=== PATIENT | female | born 1965 | race Caucasian/White ===

== ENCOUNTER → 2016-08-30 | Outpatient (CLI) | payer OTHER ==
[~2016-08-30] MED LIST: ACET-1175 PO; AGMUNK; ATOR-54 PO; AZIT500I9 IV; BCPILLS PO; CEFE2INJ2 IV; DICY10CA55 PO; DILT1TAB62 PO; DOCU-94 PO; DXM/4 PO; FAMO20TA9 IV; FAMO40TA6 PO; LORA-741 PO; LRTUNK; ONDA8TAB6 PO; OXYC1TAB3 PO; PNT250 PO; PRED10TA PO; PROC1TAB5 IV; PROC1TAB5 PO; SENN-65 PO; THM100 IV; VANC5CAP PO; VTMD1000 PO
[2016-08-30 17:29] LABS: BASO % 0.5 %; BASO ABS # 0.03 K/uL (0-0.2); COMPLETE YES; EOS % 2.1 %; HEMATOCRIT 42.8 % (37-47); IG% 0.2 %; LYMPH % 30.7 %; LYMPH ABS # 1.91 K/uL (1.2-3.4); MEAN CELL VOLUME 94.9 fL (80-100); MEAN CORPUSCULAR HEMOGLOBIN 30.6 pg (25-34); MEAN CORPUSCULAR HGB CONC 32.2 g/dl (32-36); MEAN PLATELET VOLUME 11.5 fL (7.4-10.4); MONO % 7.4 %; NEUT % 59.1 %; PLATELET COUNT 223 K/uL (130-400); RED BLOOD COUNT 4.51 M/uL (4.2-5.4); WHITE BLOOD COUNT 6.22 K/uL (4.8-10.8)
[2016-08-30 17:45] LABS: ALT/SGPT 24 U/L (12-78); AST/SGOT 14 U/L (15-37); BLOOD UREA NITROGEN 10 mg/dl (7-18); BUN/CREATININE RATIO 11.5 (10-20); CALCIUM 8.8 mg/dl (8.5-10.1); CARBON DIOXIDE 27 mmol/L (21-32); CHLORIDE 109 mmol/L (98-107); CREATININE 0.84 mg/dl (0.60-1.20); GLUCOSE 104 mg/dl (70-99); POTASSIUM 4.4 mmol/L (3.5-5.1); SODIUM 142 mmol/L (136-145)
[2016-08-30 17:48] LABS: ALKALINE PHOSPHATASE 36 U/L (45-117)
== END | disposition home or self-care (01) ==
LOC: C.LABBFT 12:07
PROVIDERS: ATTEND Nurse Practitioner
DX: R10.30 Lower abdominal pain, unspecified (principal)

== ENCOUNTER → 2016-08-31 | Outpatient (CLI) | payer OTHER ==
[2016-08-31 17:10] LABS: URINE APPEARANCE CLOUDY (CLEAR); URINE BILIRUBIN NEG (NEG); URINE COLOR DK YELLOW; URINE EPITHELIAL CELL AUTO 20-30 /lpf (0-5); URINE NITRITE NEG (NEG); URINE SPECIFIC GRAVITY 1.031 (1.000-1.030); UROBILINOGEN NEG (NEG); ZZUR CULT IF INDIC CLEAN CATCH NO
[2016-08-31 17:23] LABS: MANUAL MICROSCOPIC REQUIRED? NO; REVIEW REQ? NO
== END | disposition home or self-care (01) ==
LOC: C.LABBFT 13:15
PROVIDERS: ATTEND Nurse Practitioner
DX: R10.30 Lower abdominal pain, unspecified (principal)

== ENCOUNTER → 2016-09-03 | Outpatient (CLI) | payer OTHER ==
--- NOTE | 2016-09-03 14:32 | DIAGNOSTIC IMAGING REPORT ---
ULTRASOUND OF THE PELVIS CLINICAL HISTORY: Leiomyoma of the uterus. COMPARISON STUDY: Pelvic CT dated 06/15/2010. TECHNIQUE: Real-time, grayscale, and color flow sonography of the pelvis is performed both transabdominally and endovaginally. Images are reviewed in the transverse and longitudinal planes. FINDINGS: Uterus: The uterus is mildly enlarged and heterogeneous in echotexture, measuring 10.8 x 6.8 x 6.9 cm. An intramural fundal fibroid measures up to 3.2 cm. An additional shadowing intramural fibroid in the posterior lower uterine segment measures up to 2.3 cm. Small nabothian cysts are present in the cervix. Endometrium: The endometrium is normal in appearance, and the endometrial stripe is normal in thickness measuring up to 0.4 cm. Ovaries: The ovaries are normal in size and morphology. The right ovary measures 2.7 x 2.3 x 1.8 cm and the left ovary measures 3.0 x 2.1 x 1.9 cm. Small follicles are seen bilaterally. Normal Doppler waveforms are shown within both ovaries. Pelvis: There is no free fluid in the cul-de-sac. No concerning adnexal lesion is seen. IMPRESSION: 1. Mildly enlarged and heterogeneous fibroid uterus as detailed above. 2. The ovaries are normal in appearance. Electronically signed by: Kirk Reddy M.D. 09/03/2016 2:31 PM Dictated Date/Time: 09/03/2016 2:29 PM
== END | disposition home or self-care (01) ==
LOC: C.ULTR 13:24
PROVIDERS: ATTEND Nurse Practitioner
DX: D25.9 Leiomyoma of uterus, unspecified (principal); R10.30 Lower abdominal pain, unspecified

== ENCOUNTER → 2016-09-14 | Outpatient (CLI) | payer OTHER ==
[2016-09-14 16:23] LABS: URINE APPEARANCE CLEAR (CLEAR); URINE BILIRUBIN NEG (NEG); URINE COLOR YELLOW; URINE EPITHELIAL CELL AUTO 20-30 /lpf (0-5); URINE NITRITE NEG (NEG); URINE PH 5.5 (4.5-7.5); URINE SPECIFIC GRAVITY 1.023 (1.000-1.030); UROBILINOGEN NEG (NEG); ZZUR CULT IF INDIC CLEAN CATCH NO
[2016-09-14 16:24] LABS: MANUAL MICROSCOPIC REQUIRED? NO; REVIEW REQ? NO
== END | disposition home or self-care (01) ==
LOC: C.LABBFT 13:07
PROVIDERS: ATTEND Nurse Practitioner
DX: R10.30 Lower abdominal pain, unspecified (principal)

== ENCOUNTER → 2016-10-29 | Outpatient (CLI) | payer OTHER ==
[~2016-10-29] MED LIST changes: -ACET-1175 PO; -AZIT500I9 IV; -CEFE2INJ2 IV; -DILT1TAB62 PO; -DOCU-94 PO; -DXM/4 PO; -FAMO20TA9 IV; -FAMO40TA6 PO; -LORA-741 PO; -ONDA8TAB6 PO; -OXYC1TAB3 PO; -PROC1TAB5 IV; -PROC1TAB5 PO; -SENN-65 PO; -THM100 IV
[2016-10-29 12:45] LABS: BLOOD UREA NITROGEN 4 mg/dl (7-18); BUN/CREATININE RATIO 5.3 (10-20); CALCIUM 8.4 mg/dl (8.5-10.1); CARBON DIOXIDE 25 mmol/L (21-32); CHLORIDE 105 mmol/L (98-107); CREATININE 0.85 mg/dl (0.60-1.20); GLUCOSE 131 mg/dl (70-99); MAGNESIUM 1.8 mg/dl (1.8-2.4); POTASSIUM 3.3 mmol/L (3.5-5.1); SODIUM 139 mmol/L (136-145)
== END | disposition home or self-care (01) ==
LOC: C.LABBFT 08:30
PROVIDERS: ATTEND Nurse Practitioner Acute Care
DX: E87.6 Hypokalemia (principal)

== ENCOUNTER → 2016-10-31 | Outpatient (CLI) | payer OTHER ==
[2016-10-31 17:54] LABS: BLOOD UREA NITROGEN 8 mg/dl (7-18); BUN/CREATININE RATIO 9.5 (10-20); CALCIUM 8.9 mg/dl (8.5-10.1); CARBON DIOXIDE 26 mmol/L (21-32); CHLORIDE 106 mmol/L (98-107); CREATININE 0.81 mg/dl (0.60-1.20); GLUCOSE 101 mg/dl (70-99); POTASSIUM 3.7 mmol/L (3.5-5.1); SODIUM 137 mmol/L (136-145)
== END | disposition home or self-care (01) ==
LOC: C.LABBFT 11:07
PROVIDERS: ATTEND Physician Assistant Medical
DX: E87.6 Hypokalemia (principal)

== ENCOUNTER 2016-11-11 09:19 | Inpatient (IN) | payer OTHER ==
[~2016-11-11] VITALS: Ht 167.6 cm; Wt 82.4 kg
[~2016-11-11 09:19] MED LIST changes: -ATOR-54 PO; -DICY10CA55 PO; -PNT250 PO; -PRED10TA PO; -VANC5CAP PO; -VTMD1000 PO
[2016-11-11 09:23] VITALS: Ht 167.6 cm; Wt 82.4 kg
[2016-11-11] MEDS ORDERED: SODIUM CHLORIDE 0.9% 1000ML 1,000 ML IV STA (09:41)
[2016-11-11] MEDS ORDERED: ONDANSETRON INJ 2 MG/ML 2 ML VIAL IV STA (09:41)
[2016-11-11] MEDS ORDERED: HYDROmorphone INJ 1 MG/ML SYR IV STA (09:41)
--- NOTE | 2016-11-11 09:49 | EMERGENCY ROOM VISIT NOTE ---
History First contact with patient: 09:29 Chief Complaint: ABDOMINAL PAIN Stated Complaint: NAUSEA, DIARRHEA, STOMACH ISSUES X 2 WKS Nursing Triage Summary: Abdominal pain, nausea and vomiting. States was hospitalized three weeks ago for the same - states nothing was found. ([facility], [place], [place]) History of Present Illness The patient is a 51 year old female who presents to the Emergency Room with complaints of abdominal pain, nausea, vomiting and diarrhea. The patient developed GI symptoms approximately 7 weeks ago. She has had intermittent abdominal pain, nausea, vomiting and diarrhea. 3 weeks ago when they were on vacation in [place] she was hospitalized. She had a colonoscopy at that time which revealed terminal ileitis. The patient also had a lactic acidosis. The patient has followed up with gastroenterology, Dr. Rowe, and had a test done on Saturday. She is not sure of the name of the study. She states that last night and this morning she has had diffuse abdominal pain, nausea, vomiting and diarrhea. She rates her discomfort a 9/10. She states the symptoms are similar to her ongoing stomach issues. She denies any fevers. She denies any pain in her chest or trouble breathing. She denies any dysuria, urgency or frequency. She denies any melena, hematochezia or hematemesis. The patient's working diagnosis at this time is Crohn's disease. She was started on Pentasa, prednisone, Bentyl. Review of Systems A 10 system review of systems was completed with positives and pertinent negatives listed in the HPI. Past Medical/Surgical History Medical Problems: (1) Abdominal pain Surgical Problems: (1) History of appendectomy Social History Smoking Status: Never Smoker Marital Status: Housing Status: lives with family Current/Historical Medications Scheduled Atorvastatin (Lipitor), 20 MG PO HS Control Pills ( Control Pills), 1 TAB PO DAILY Dicyclomine Hcl (Bentyl), 10 MG PO BID Mesalamine Cont Rel (Pentasa), 1,000 MG PO QID Prednisone (Prednisone), 0 PO UD Allergies Coded Allergies: No Known Allergies (Unverified , 11/11/16) Physical Exam Vital Signs Date Time Temp Pulse Resp B/P (MAP) Pulse Ox O2 Delivery O2 Flow Rate FiO2 11/11/16 11:27 98 Room Air 11/11/16 11:21 98 20 159/98 98 Room Air 11/11/16 10:32 75 16 147/85 98 Room Air 11/11/16 09:47 95 Room Air 11/11/16 09:35 89 11/11/16 09:23 36.5 100 22 146/85 100 Room Air Physical Exam VITALS: Vitals are noted on the nurse's note and reviewed by myself. Vital signs stable. The patient is afebrile. GENERAL: This is a 51-year-old female, in no acute distress, nondiaphoretic, well-developed well-nourished. SKIN: The skin was without rashes, erythema, edema, or bruising. There is no tenting of the skin. Capillary reflex less than 2 seconds. HEAD: Normocephalic atraumatic. EARS: The external ears are normal in appearance. EYES: Pupils equal round and reactive to light and accommodation. Conjunctivae without injection, sclerae without icterus. Extraocular movements intact. NOSE: Patent, turbinates without inflammation or discharge. MOUTH: Mucous membranes moist. Tonsils are not enlarged. Pharynx without erythema or exudate. Uvula midline. Airway patent. Tongue does not deviate. NECK: Supple without nuchal rigidity. No lymphadenopathy. No thyromegaly. Cervical spine is nontender. No JVD. HEART: Regular rate and rhythm without murmurs gallops or rubs. LUNGS: Clear to auscultation bilaterally without wheezes, rales or rhonchi. No retractions or accessory muscle use. ABDOMEN: Positive bowel sounds x 4. Soft, mildly distended, marked left lower quadrant tenderness, moderate diffuse tenderness, without masses or organomegaly. MUSCULOSKELETAL: No muscle atrophy, erythema, or edema noted. Full range of motion in all extremities. Strength 5/5 throughout. NEURO: Patient was alert and oriented to person place and time. No focal neurological deficits. Medical Decision & Procedures ER Provider Diagnostic Interpretation: ABDOMEN 2VIEW W/PA CHEST RTN CLINICAL HISTORY: abdominal pain pain COMPARISON STUDY: No previous studies for comparison. FINDINGS: Small bowel pattern suggests small bowel ileus versus partial small bowel obstructive change. Lungs are clear. Diaphragms smooth. IMPRESSION: Ileus versus partial small bowel obstructive change. Negative chest. Laboratory Results 11/11/16 09:35 Red Blood Count 4.99, Mean Corpuscular Volume 88.6, Mean Corpuscular Hemoglobin 31.9, Mean Corpuscular Hemoglobin Concent 36.0, Mean Platelet Volume 11.2, Neutrophils (%) (Auto) 86.3, Lymphocytes (%) (Auto) 9.2, Monocytes (%) (Auto) 4.0, Eosinophils (%) (Auto) 0.0, Basophils (%) (Auto) 0.2, Neutrophils # (Auto) 10.26, Lymphocytes # (Auto) 1.09, Monocytes # (Auto) 0.47, Eosinophils # (Auto) 0.00, Basophils # (Auto) 0.02 11/11/16 09:35 Test 11/11/16 09:35 White Blood Count 11.87 K/uL (4.8-10.8) Red Blood Count 4.99 M/uL (4.2-5.4) Hemoglobin 15.9 g/dL (12.0-16.0) Hematocrit 44.2 % (37-47) Mean Corpuscular Volume 88.6 fL (80-100) Mean Corpuscular Hemoglobin 31.9 pg (25-34) Mean Corpuscular Hemoglobin Concent 36.0 g/dl (32-36) Platelet Count 295 K/uL (130-400) Mean Platelet Volume 11.2 fL (7.4-10.4) Neutrophils (%) (Auto) 86.3 % Lymphocytes (%) (Auto) 9.2 % Monocytes (%) (Auto) 4.0 % Eosinophils (%) (Auto) 0.0 % Basophils (%) (Auto) 0.2 % Neutrophils # (Auto) 10.26 K/uL (1.4-6.5) Lymphocytes # (Auto) 1.09 K/uL (1.2-3.4) Monocytes # (Auto) 0.47 K/uL (0.11-0.59) Eosinophils # (Auto) 0.00 K/uL (0-0.5) Basophils # (Auto) 0.02 K/uL (0-0.2) RDW Standard Deviation 42.4 fL (36.4-46.3) RDW Coefficient of Variation 13.1 % (11.5-14.5) Immature Granulocyte % (Auto) 0.3 % Immature Granulocyte # (Auto) 0.03 K/uL (0.00-0.02) Erythrocyte Sedimentation Rate 14 mm/hr (0-21) Prothrombin Time 12.4 SECONDS (9.0-12.0) Prothromb Time International Ratio 1.2 (0.9-1.1) Activated Partial Thromboplast Time 26.1 SECONDS (21.0-31.0) Partial Thromboplastin Ratio 1.0 Anion Gap 14.0 mmol/L (3-11) Estimated GFR () 78.0 Estimated GFR (Non- 67.3 BUN/Creatinine Ratio 7.1 (10-20) Calcium Level 9.7 mg/dl (8.5-10.1) Magnesium Level 1.8 mg/dl (1.8-2.4) Total Bilirubin 0.9 mg/dl (0.2-1) Aspartate Amino Transf (AST/SGOT) 19 U/L (15-37) Alanine Aminotransferase (ALT/SGPT) 34 U/L (12-78) Alkaline Phosphatase 37 U/L (45-117) Total Creatine Kinase 70 U/L (26-192) Total Protein 7.9 gm/dl (6.4-8.2) Albumin 3.7 gm/dl (3.4-5.0) Globulin 4.2 gm/dl (2.5-4.0) Albumin/Globulin Ratio 0.9 (0.9-2) Lyme Disease IgG Antibody NEG (NEG) Medications Administered Medications (Trade) Dose Ordered Sig/Cheryl Route Start Time Stop Time Status Last Admin Dose Admin Sodium Chloride 1,000 ml @ 999 mls/hr Q1H1M STAT IV 11/11/16 09:41 11/11/16 10:41 DC 11/11/16 09:52 999 MLS/HR Ondansetron HCl (Zofran Inj) 4 mg NOW STAT IV 11/11/16 09:41 11/11/16 09:43 DC 11/11/16 09:52 4 MG Hydromorphone HCl (Dilaudid Inj) 1 mg NOW STAT IV 11/11/16 09:41 11/11/16 09:43 DC 11/11/16 09:53 1 MG Methylprednisolone Sodium Succinate 80 mg/Syringe 1.28 ml @ 1.5 mls/min ONE STAT IV 11/11/16 11:07 11/11/16 11:09 DC 11/11/16 11:28 1.5 MLS/MIN Ciprofloxacin/ Dextrose (Cipro / D5W) 400 mg NOW STAT IV 11/11/16 11:07 11/11/16 11:09 DC 11/11/16 11:29 400 MG Metronidazole (Flagyl / Nss) 500 mg NOW STAT IV 11/11/16 11:07 11/11/16 11:09 DC 11/11/16 11:29 500 MG Procedure The patient was monitored on a athletic monitor. They maintained a normal sinus rhythm without ectopy. ED Course The patient was seen and examined. Previous visits were reviewed. The patient does not have a fever. She does have a mild leukocytosis of 11.87. Her sedimentation rate is not elevated. She does not have any significant electrolyte abnormalities. Lactic acid is 1.0. INR is 1.2. Plain film of the abdomen and chest suggest small bowel obstruction vs ileus The patient was hydrated with normal saline She was initially given 1 mg IV Dilaudid and 4 mg IV Zofran with improvement in her pain She was given 80 mg IV Solu-Medrol She was given 400 mg IV Cipro She was given 500 mg IV Flagyl An NG tube was placed with intermittent suction and the patient tolerated well. Case management was able to review the notes in WebMD's system. The enterography has not been resulted at this time. The case was discussed with Dr. Mackenzie Cook who evaluated the patient in the emergency department. He recommends NG tube, Cipro, Flagyl, stool for O&P and C. difficile, Solu-Medrol 3 times a day. This was relayed to the hospitalist service as well. I discussed the case with Dr. Seals and she will evaluate the patient. The case was discussed with Dr. Pierre who agrees with the assessment and treatment plan. Medical Decision DIFFERENTIAL DIAGNOSIS: Hepatitis, cholecystitis, cholangitis, biliary colic, pancreatitis, pneumonia, subdiaphragmatic abscess, appendicitis, inguinal hernia , nephrolithiasis, inflammatory bowel disease, mesenteric adenitis, peptic ulcer disease, GERD, gastritis, pancreatitis, myocardial infarction, pericarditis, ruptured aortic aneurysm, appendicitis, gastroenteritis, bowel obstruction, splenic infarct, diverticulitis, mesenteric ischemia, metabolic, peritonitis, among others. Consults Consulting Physician: Dr. Mackenzie Cook Admission NG tube Stool culture/O&P/c. diff Solumedrol TID Cipro, Flagyl IV Impression Primary Impression: Small bowel obstruction Additional Impression: Lower abdominal pain Departure Information Dispostion Admitted as an inpatient Referrals Olegario Diehl M.D. (PCP) Patient Instructions My [facility] Problem Qualifiers
[2016-11-11] MEDS ORDERED: PRED10TA PO (09:59)
[2016-11-11] MEDS ORDERED: ATOR-54 PO (09:59)
[2016-11-11] MEDS ORDERED: PNT250 PO (09:59)
[2016-11-11] MEDS ORDERED: DICY10CA55 PO (09:59)
[2016-11-11 10:01] LABS: BASO % 0.2 %; BASO ABS # 0.02 K/uL (0-0.2); COMPLETE YES; HEMATOCRIT 44.2 % (37-47); IG% 0.3 %; LYMPH % 9.2 %; LYMPH ABS # 1.09 K/uL (1.2-3.4); MEAN CELL VOLUME 88.6 fL (80-100); MEAN CORPUSCULAR HEMOGLOBIN 31.9 pg (25-34); MEAN PLATELET VOLUME 11.2 fL (7.4-10.4); NEUT % 86.3 %; PLATELET COUNT 295 K/uL (130-400); RED BLOOD COUNT 4.99 M/uL (4.2-5.4); WHITE BLOOD COUNT 11.87 K/uL (4.8-10.8)
[2016-11-11 10:10] LABS: INR 1.2 (0.9-1.1); PROTHROMBIN TIME (PATIENT) 12.4 SECONDS (9.0-12.0)
[2016-11-11 10:20] LABS: ALT/SGPT 34 U/L (12-78); BLOOD UREA NITROGEN 7 mg/dl (7-18); BUN/CREATININE RATIO 7.1 (10-20); CALCIUM 9.7 mg/dl (8.5-10.1); CARBON DIOXIDE 21 mmol/L (21-32); CHLORIDE 103 mmol/L (98-107); CREATININE 0.98 mg/dl (0.60-1.20); GLUCOSE 116 mg/dl (70-99); MAGNESIUM 1.8 mg/dl (1.8-2.4); POTASSIUM 3.6 mmol/L (3.5-5.1); SODIUM 138 mmol/L (136-145)
[2016-11-11 10:23] LABS: ALB/GLOB RATIO 0.9 (0.9-2); ALKALINE PHOSPHATASE 37 U/L (45-117); AST/SGOT 19 U/L (15-37)
--- NOTE | 2016-11-11 10:36 | DIAGNOSTIC IMAGING REPORT ---
ABDOMEN 2VIEW W/PA CHEST RTN CLINICAL HISTORY: abdominal pain pain COMPARISON STUDY: No previous studies for comparison. FINDINGS: Small bowel pattern suggests small bowel ileus versus partial small bowel obstructive change. Lungs are clear. Diaphragms smooth. IMPRESSION: Ileus versus partial small bowel obstructive change. Negative chest. The above report was generated using voice recognition software. It may contain grammatical, syntax or spelling errors. Electronically signed by: Navin Quinteros M.D. 11/11/2016 10:35 AM Dictated Date/Time: 11/11/2016 10:34 AM
[2016-11-11] MEDS ORDERED: METHYLPREDNISOLONE IV 80 MG in SYRINGE 0 ML IV STA (11:07)
[2016-11-11] MEDS ORDERED: METRONIDAZOLE 500MG / 100ML NSS IV STA (11:07)
[2016-11-11] MEDS ORDERED: CIPROFLOXACIN 400MG / 200ML D5W IV STA (11:07)
[2016-11-11 11:27] VITALS: O2SAT 98
[2016-11-11] MEDS ORDERED: ACETAMINOPHEN 325 MG TAB PO PRN (11:45)
[2016-11-11] MEDS ORDERED: ONDANSETRON INJ 2 MG/ML 2 ML VIAL IV PRN (11:45)
[2016-11-11] MEDS ORDERED: MAGNESIUM HYDROXIDE SUSP 30 ML UDC PO PRN (11:45)
--- NOTE | 2016-11-11 11:56 | History and Physical ---
History & Physical Date & Time of Service: Nov 11, 2016 at 11:46 Chief Complaint: Nausea, Diarrhea, Stomach Issues X 2 Wks Primary Care Physician: Olegario Diehl M.D. History of Present Illness Source: patient, hospital records 51 y/o F c/o abd pain, n/v/d. Pt states that all of this started in late August. She had been having abd pain x2 days and was seen by her PCP PA. She had a pelvic US at that time that was WNL. She was scheduled for a c-scope in May 2017. A few days after the US, her abd pain resolved until she was on vacation in [place] around 10/25. She was admitted there after becoming "deathly ill" with abd pain, n/v/d with inability to tolerate PO. She had a c-scope which showed terminal ileitis and the working dx at that time was Crohn's. She also had lactic acidosis at that time. She was d/c'd to home for further f/u. She was feeling a bit better at that time, but still with mild sx. She states that there was no bowel obstruction noted at that time. She established care with Dr. Rowe last week. She states she had a CT AP with contrast at the [facility] office, but had not been called with results yet. Pt sx started to worsen again, so she came to the ED for further care this morning. Pt states she was having bloating as well as the abd pain, n/v/d. Pt had an NGT placed the ED and feels a bit improved, but still having sx. Bloating and nausea are better. Pt notes that a few weeks ago she noted a perfectly round bite on the back of her calf that was itchy. It has since resolved. She has not been tested for Lyme. Pt denies fever, SOB, chest pain, LE pain or swelling. Past Medical/Surgical History Hyperlipidemia s/p appendectomy Family History Denies GI issues Social History Smoking Status: Never Smoker Alcohol Use: occasionally Drug Use: none Marital Status: Immunizations History of Influenza Vaccine: Yes Influenza Vaccine Date: Feb 15, 2010 History of Tetanus Vaccine?: No History of Pneumococcal: No History of Hepatitis B Vaccine: No Multi-Drug Resistant Organisms History of MDRO: No Allergies Coded Allergies: No Known Allergies (Unverified , 11/11/16) Home Medications Scheduled Atorvastatin (Lipitor), 20 MG PO HS Control Pills ( Control Pills), 1 TAB PO DAILY Dicyclomine Hcl (Bentyl), 10 MG PO BID Mesalamine Cont Rel (Pentasa), 1,000 MG PO QID Prednisone (Prednisone), 0 PO UD Review of Systems Reviewed as above and otherwise neg Physical Exam Vital Signs Date Time Temp Pulse Resp B/P (MAP) Pulse Ox O2 Delivery O2 Flow Rate FiO2 11/11/16 11:27 98 Room Air 11/11/16 11:21 98 20 159/98 98 Room Air 11/11/16 10:32 75 16 147/85 98 Room Air 11/11/16 09:47 95 Room Air 11/11/16 09:35 89 11/11/16 09:23 36.5 100 22 146/85 100 Room Air General Appearance: WD/WN, no apparent distress Head: normocephalic, atraumatic Eyes: normal inspection, EOMI ENT: hearing grossly normal Neck: supple Respiratory/Chest: normal breath sounds, no respiratory distress Cardiovascular: regular rate, rhythm, no edema Abdomen/GI: soft, + tenderness (mild), + distended Extremities/Musculoskelatal: no calf tenderness, no pedal edema Neurologic/Psych: alert, normal mood/affect, oriented x 3 Skin: normal color, warm/dry Diagnostics Laboratory Results Results Past 24 Hours Test 11/11/16 09:35 Range/Units White Blood Count 11.87 4.8-10.8 K/uL Red Blood Count 4.99 4.2-5.4 M/uL Hemoglobin 15.9 12.0-16.0 g/dL Hematocrit 44.2 37-47 % Mean Corpuscular Volume 88.6 80-100 fL Mean Corpuscular Hemoglobin 31.9 25-34 pg Mean Corpuscular Hemoglobin Concent 36.0 32-36 g/dl Platelet Count 295 130-400 K/uL Mean Platelet Volume 11.2 7.4-10.4 fL Neutrophils (%) (Auto) 86.3 % Lymphocytes (%) (Auto) 9.2 % Monocytes (%) (Auto) 4.0 % Eosinophils (%) (Auto) 0.0 % Basophils (%) (Auto) 0.2 % Neutrophils # (Auto) 10.26 1.4-6.5 K/uL Lymphocytes # (Auto) 1.09 1.2-3.4 K/uL Monocytes # (Auto) 0.47 0.11-0.59 K/uL Eosinophils # (Auto) 0.00 0-0.5 K/uL Basophils # (Auto) 0.02 0-0.2 K/uL RDW Standard Deviation 42.4 36.4-46.3 fL RDW Coefficient of Variation 13.1 11.5-14.5 % Immature Granulocyte % (Auto) 0.3 % Immature Granulocyte # (Auto) 0.03 0.00-0.02 K/uL Erythrocyte Sedimentation Rate 14 0-21 mm/hr Prothrombin Time 12.4 9.0-12.0 SECONDS Prothromb Time International Ratio 1.2 0.9-1.1 Activated Partial Thromboplast Time 26.1 21.0-31.0 SECONDS Partial Thromboplastin Ratio 1.0 Sodium Level 138 136-145 mmol/L Potassium Level 3.6 3.5-5.1 mmol/L Chloride Level 103 98-107 mmol/L Carbon Dioxide Level 21 21-32 mmol/L Anion Gap 14.0 3-11 mmol/L Blood Urea Nitrogen 7 7-18 mg/dl Creatinine 0.98 0.60-1.20 mg/dl Estimated GFR () 78.0 Estimated GFR (Non- 67.3 BUN/Creatinine Ratio 7.1 10-20 Random Glucose 116 70-99 mg/dl Calcium Level 9.7 8.5-10.1 mg/dl Magnesium Level 1.8 1.8-2.4 mg/dl Total Bilirubin 0.9 0.2-1 mg/dl Aspartate Amino Transf (AST/SGOT) 19 15-37 U/L Alanine Aminotransferase (ALT/SGPT) 34 12-78 U/L Alkaline Phosphatase 37 45-117 U/L Total Creatine Kinase 70 26-192 U/L Total Protein 7.9 6.4-8.2 gm/dl Albumin 3.7 3.4-5.0 gm/dl Globulin 4.2 2.5-4.0 gm/dl Albumin/Globulin Ratio 0.9 0.9-2 Microbiology Results 11/11/16 Blood Culture, Received Pending 11/11/16 Blood Culture, Received Pending Diagnostic Radiology C/Abd XR with ileus vs partial SBO Impression Assessment and Plan 51 y/o F who was admitted on 11/11 for abd pain, n/v/d abd pain, n/v/d: ileus vs partial SBO noted on XR Seen by Dr. Cook () in the ED and recs for NGT, steroids, cipro/flagyl Recent CT AP done at [facility] and results not available to me, will await further recs from as they have access to [facility] testing CBC, PRP WNL Blood cx pending, recheck lactic acid levels given recent lactic acidosis Will check Lyme given recent rash Had been pn pentasa, prednisone, and bentyl as outpt Hyperlipidemia: holding home meds OCP use: holding at this time Other: Ambulation for DVT proph NPO Level of Care Med/Surg Advanced Directives Existing Living Will: Yes Existing Power of Yard Coordinator: No VTE Prophylaxis VTE Risk Assessment Done? Y/N: Yes Risk Level: Low
--- NOTE | 2016-11-11 12:17 | GASTROINTESTINAL CONSULTATION ---
DATE OF CONSULTATION: 11/11/2016 REQUESTING PROVIDER: MILLER Danielle. CHIEF COMPLAINT: Abdominal pain, nausea and vomiting. HISTORY OF PRESENT ILLNESS: The patient is a 51-year-old female who presented to the Emergency Room this morning with symptoms of abdominal discomfort, recurrent nausea and several episodes of emesis. The patient notes that she was in her usual state of health until approximately 2 months ago, when she had a history of abdominal discomfort. This passed on its own without any interventions. She was then traveling in [place] and developed recurrent symptoms. During this time, she had nausea, vomiting and diarrhea and presented to a hospital in [place]. During a short hospital stay, she underwent a colonoscopy, which showed evidence of ileal inflammation, thought to be related to Crohn's disease. She was referred to Dr. Eda Rowe as an outpatient, who saw her last week. The patient has been on Pentasa as an outpatient and recently finished a course of ciprofloxacin. She denies having any fevers, chills, or sweats. Her main symptoms today include nausea, vomiting and recurrent diarrhea 3-5 times per day associated with some urgency. The patient denies having any hematochezia. PAST MEDICAL HISTORY: Hypercholesterolemia. PAST SURGICAL HISTORY: Appendectomy. SOCIAL HISTORY: Nonsmoker. Denies alcohol use. FAMILY HISTORY: No history of inflammatory bowel disease. ALLERGIES: POLLEN. GASTROINTESTINAL HISTORY: One colonoscopy in October 2016. REVIEW OF SYSTEMS: GENERAL: No fevers and no chills. CARDIAC: No chest pain. PULMONARY: No shortness of breath or cough. GASTROINTESTINAL: Please see history of present illness. GENITOURINARY: No dysuria. MUSCULOSKELETAL: No joint pains or muscle pains. SKIN: The patient is with a history of rash before she wonders if she may have a Lyme disease. HEENT: No difficulty swallowing. PSYCHIATRIC: No depression today. No suicidal ideation. HEMATOLOGIC: No bleeding tendency. PHYSICAL EXAMINATION: VITAL SIGNS: Temperature 36.5, pulse 100, respiratory rate 16, and blood pressure is 147/85. HEENT: No scleral icterus noted. No JVD noted. LUNGS: Clear to auscultation. CARDIAC: Regular rate and rhythm without murmur. ABDOMEN: Soft. Mild tenderness in the right lower quadrant and left lower quadrant. EXTREMITIES: No edema today. No rashes noted. NEUROLOGIC: Cranial nerves grossly intact. Motor grossly intact. LABORATORIES: White blood cell count is 11.87, hemoglobin is 15.9, hematocrit is 44.2, and platelet count is 295. PT 12.4 and INR 1.2. Sodium is 136, potassium is 3.6, BUN is 7, creatinine is 0.98, and calcium is 9.7. AST 19, ALT 34, and alkaline phosphatase 37. Albumin is 3.7. IMAGING STUDIES: Chest x-ray, ileal partial small-bowel obstruction noted. Prior pathology results from 11/01/2016 notable for inflammatory changes in the terminal ileum. IMPRESSION: This is a 51-year-old female presenting with signs and symptoms suggestive of ileal Crohn's disease. Given the patient's small bowel obstruction, I would suggest admission for more intensive medical therapy. RECOMMENDATIONS: 1. IV hydration. 2. Please begin the patient on Solu-Medrol 3 times daily. 3. Ciprofloxacin and Flagyl for antibiotic coverage. 4. Stool studies to be ordered to include C. diff, stool culture, ova and parasites. Please call with any questions or concerns. We will continue to follow the patient with you.
[2016-11-11 13:10] VITALS: BP 148/92; PULSE 86; TEMP 36.7; O2SAT 98
[2016-11-11] MEDS: D5W AND 1/2NSS + 20MEQ KCL 1,000 ML IV SCH ×2 (13:55→21:41)
[2016-11-11] MEDS ORDERED: NURSING VERBAL MED ORDER ONE (14:30)
[2016-11-11] MEDS ORDERED: MoRPHine SULFATE 2 MG/ML CARP IV PRN (14:30)
[2016-11-11] MEDS ORDERED: HYDROmorphone INJ 0.5 MG/0.5 ML SYR IV STA (14:32)
[2016-11-11 14:58] VITALS: BP 131/79; PULSE 77; TEMP 36.7; O2SAT 97
[2016-11-11 16:00] VITALS: O2SAT 97
[2016-11-11 18:08] LABS: URINE APPEARANCE CLEAR (CLEAR); URINE COLOR ORANGE; URINE EPITHELIAL CELL AUTO 20-30 /lpf (0-5); URINE NITRITE POS (NEG); URINE PH 5.5 (4.5-7.5); URINE SPECIFIC GRAVITY 1.034 (1.000-1.030); UROBILINOGEN NEG (NEG); ZZUR CULT IF INDIC CLEAN CATCH NO
[2016-11-11 18:10] LABS: MANUAL MICROSCOPIC REQUIRED? NO; REVIEW REQ? NO
[2016-11-11 18:12] LABS: URINE BILIRUBIN NEG (NEG)
[2016-11-11] MEDS: METRONIDAZOLE / NSS 500 MG in PREMIXED NSS 100 ML IV SCH (19:37)
[2016-11-11] MEDS: METHYLPREDNISOLONE IV 40 MG in SYRINGE 0 ML IV SCH (19:37)
[2016-11-11] MEDS: CIPROFLOXACIN / D5W 400 MG in PREMIXED IN D5W 200 ML IV SCH (21:41)
[2016-11-11 23:13] VITALS: BP 130/78; PULSE 77; TEMP 36.8; O2SAT 93
[2016-11-12] MEDS: METRONIDAZOLE / NSS 500 MG in PREMIXED NSS 100 ML IV SCH ×3 (04:03→20:55)
[2016-11-12] MEDS: D5W AND 1/2NSS + 20MEQ KCL 1,000 ML IV SCH ×3 (04:04→21:00)
[2016-11-12] MEDS: METHYLPREDNISOLONE IV 40 MG in SYRINGE 0 ML IV SCH ×3 (04:04→20:01)
[2016-11-12 07:40] VITALS: BP 128/76; PULSE 74; TEMP 36.9; O2SAT 97
[2016-11-12 09:30] LABS: BASO % 0.1 %; BASO ABS # 0.01 K/uL (0-0.2); COMPLETE YES; HEMATOCRIT 38.4 % (37-47); IG% 0.1 %; LYMPH % 7.9 %; LYMPH ABS # 0.64 K/uL (1.2-3.4); MEAN CELL VOLUME 91.2 fL (80-100); MEAN CORPUSCULAR HEMOGLOBIN 31.6 pg (25-34); MEAN CORPUSCULAR HGB CONC 34.6 g/dl (32-36); MEAN PLATELET VOLUME 10.9 fL (7.4-10.4); MONO % 2.1 %; NEUT % 89.8 %; PLATELET COUNT 207 K/uL (130-400); RED BLOOD COUNT 4.21 M/uL (4.2-5.4); WHITE BLOOD COUNT 8.11 K/uL (4.8-10.8)
[2016-11-12 09:37] LABS: INR 1.2 (0.9-1.1); PROTHROMBIN TIME (PATIENT) 12.5 SECONDS (9.0-12.0)
[2016-11-12] MEDS: CIPROFLOXACIN / D5W 400 MG in PREMIXED IN D5W 200 ML IV SCH ×2 (09:41→22:07)
[2016-11-12 09:49] LABS: ALT/SGPT 30 U/L (12-78); BLOOD UREA NITROGEN 7 mg/dl (7-18); BUN/CREATININE RATIO 9.1 (10-20); CALCIUM 8.3 mg/dl (8.5-10.1); CARBON DIOXIDE 26 mmol/L (21-32); CHLORIDE 106 mmol/L (98-107); CREATININE 0.74 mg/dl (0.60-1.20); GLUCOSE 153 mg/dl (70-99); POTASSIUM 3.9 mmol/L (3.5-5.1); SODIUM 139 mmol/L (136-145)
[2016-11-12 09:52] LABS: ALB/GLOB RATIO 0.8 (0.9-2); ALKALINE PHOSPHATASE 29 U/L (45-117); AST/SGOT 18 U/L (15-37)
--- NOTE | 2016-11-12 13:40 | Gastroenterology Progress Note ---
Progress Note Date of Service: Nov 12, 2016 Subjective Pt evaluation today including: conversation w/ patient, physical exam, chart review, lab review 51yo being followed with hx of crohn's disease on [place] admitted with sx's of SBO, NGT remains in place, currently on cipro/flagyl and IV steroids. Pt feeling much better today, abdominal pain is less still has not passed gas or had BM MR enterography complete 11/11/16 confirms crohn's at [facility] with phlegmonous collection adjacent to ileocecal valve with mild to moderate small bowel obstruction labs stable, blood cultures pending Review of Systems Constitutional: No fever, No chills Eyes: No problem reported ENT: No hearing loss Respiratory: No problem reported Cardiac: No problem reported Abdomen: + see HPI Musculoskeletal: No problem reported Female : No problem reported Neuro: No problem reported Psych: No problem reported Heme: No abnormal bleeding/bruising Endo: No problem reported Skin: No problem reported Medications Current Inpatient Medications Medications (Trade) Dose Ordered Sig/Cheryl Route Start Time Stop Time Status Last Admin Dose Admin Acetaminophen (Tylenol Tab) 650 mg Q4H PRN PO 11/11/16 11:45 12/11/16 11:44 Magnesium Hydroxide (Milk Of Magnesia Susp) 30 ml Q6H PRN PO 11/11/16 11:45 12/11/16 11:44 Ondansetron HCl (Zofran Inj) 4 mg Q6H PRN IV 11/11/16 11:45 12/11/16 11:44 Ciprofloxacin/ Dextrose 400 mg/ Prmx 200 ml @ 100 mls/hr Q12@1000,2200 IV 11/11/16 22:00 11/20/16 23:59 11/12/16 09:41 100 MLS/HR Metronidazole 500 mg/Prmx 100 ml @ 100 mls/hr Q8@0400,1200,2000 IV 11/11/16 20:00 11/21/16 04:59 11/12/16 11:55 100 MLS/HR Potassium Chloride/Dextrose/ Sod Cl 1,000 ml @ 125 mls/hr Q8H IV 11/11/16 13:30 12/11/16 13:29 11/12/16 13:29 125 MLS/HR Methylprednisolone Sodium Succinate 40 mg/Syringe 0.64 ml @ 1.5 mls/min Q8@0400,1200,2000 IV 11/11/16 20:00 12/11/16 19:59 11/12/16 11:56 1.5 MLS/MIN Morphine Sulfate (MoRPHine SULFATE INJ) 1 mg Q3H PRN IV 11/11/16 14:30 11/25/16 14:29 Objective Vital Signs Date Time Temp Pulse Resp B/P (MAP) Pulse Ox O2 Delivery O2 Flow Rate FiO2 11/12/16 08:00 Room Air 11/12/16 07:40 36.9 74 18 128/76 (93) 97 Room Air 11/12/16 00:00 Room Air 11/11/16 23:13 36.8 77 18 130/78 (95) 93 Room Air 11/11/16 16:00 97 Room Air 11/11/16 14:58 36.7 77 16 131/79 (96) 97 Physical Exam General Appearance: WD/WN (NGT in place), no apparent distress Eyes: normal inspection ENT: hearing grossly normal Respiratory/Chest: lungs clear Cardiovascular: regular rate, rhythm Abdomen: soft, + pertinent finding (mild abdominal tenderness remains, no rebound or guarding, bowel sounds present) Extremities: non-tender, no pedal edema Neurologic/Psych: alert, normal mood/affect, oriented x 3 Skin: no jaundice, no rash Laboratory Results Last 24 Hours Test 11/11/16 17:30 11/12/16 09:18 Urine Color ORANGE Urine Appearance CLEAR Urine pH 5.5 Urine Specific [place] 1.034 Urine Protein 1+ Urine Glucose (UA) TRACE Urine Ketones 2+ Urine Occult Blood NEG Urine Nitrite POS Urine Bilirubin NEG Urine Urobilinogen NEG Urine Leukocyte Esterase TRACE Urine WBC (Auto) 1-5 /hpf Urine RBC (Auto) 5-10 /hpf Urine Hyaline Casts (Auto) 5-10 /lpf Urine Epithelial Cells (Auto) 20-30 /lpf Urine Bacteria (Auto) NEG White Blood Count 8.11 K/uL Red Blood Count 4.21 M/uL Hemoglobin 13.3 g/dL Hematocrit 38.4 % Mean Corpuscular Volume 91.2 fL Mean Corpuscular Hemoglobin 31.6 pg Mean Corpuscular Hemoglobin Concent 34.6 g/dl Platelet Count 207 K/uL Mean Platelet Volume 10.9 fL Neutrophils (%) (Auto) 89.8 % Lymphocytes (%) (Auto) 7.9 % Monocytes (%) (Auto) 2.1 % Eosinophils (%) (Auto) 0.0 % Basophils (%) (Auto) 0.1 % Neutrophils # (Auto) 7.28 K/uL Lymphocytes # (Auto) 0.64 K/uL Monocytes # (Auto) 0.17 K/uL Eosinophils # (Auto) 0.00 K/uL Basophils # (Auto) 0.01 K/uL RDW Standard Deviation 44.8 fL RDW Coefficient of Variation 13.5 % Immature Granulocyte % (Auto) 0.1 % Immature Granulocyte # (Auto) 0.01 K/uL Prothrombin Time 12.5 SECONDS Prothromb Time International Ratio 1.2 Sodium Level 139 mmol/L Potassium Level 3.9 mmol/L Chloride Level 106 mmol/L Carbon Dioxide Level 26 mmol/L Anion Gap 7.0 mmol/L Blood Urea Nitrogen 7 mg/dl Creatinine 0.74 mg/dl Estimated GFR () 109.5 Estimated GFR (Non- 94.5 BUN/Creatinine Ratio 9.1 Random Glucose 153 mg/dl Lactic Acid Level 1.7 mmol/L Calcium Level 8.3 mg/dl Total Bilirubin 0.4 mg/dl Aspartate Amino Transf (AST/SGOT) 18 U/L Alanine Aminotransferase (ALT/SGPT) 30 U/L Alkaline Phosphatase 29 U/L Total Protein 6.6 gm/dl Albumin 3.0 gm/dl Globulin 3.6 gm/dl Albumin/Globulin Ratio 0.8 Assessment and Plan 51yo with crohn's disease admitted with SBO with NGT decompression reports symptoms improved today continue IV antibiotics Continue IV steroids consider surgical consult depending on pt course Obtain obstructive series today, repeat KUB daily as long as NGT remains Repeat CT scan of abdomen Saturday11/14/16 given findings of MR enterography detailed above. Will continue to follow. The patient's recent enterography does show evidence of a phlegmon in her right lower quadrant. Please continue with IV hydration, broad-spectrum antibiotics and steroids. I would also suggest a daily abdominal film to evaluate for evidence of improvement of her small bowel obstruction
--- NOTE | 2016-11-12 14:15 | DIAGNOSTIC IMAGING REPORT ---
ABDOMEN 2 VIEWS CLINICAL HISTORY: 51 years-old Female presenting with crohn's disease, SBO with NGT decompression. TECHNIQUE: Single supine view of the abdomen was obtained. COMPARISON: 11/11/2016. FINDINGS: Nasogastric tube terminates in the body of the stomach with sidehole contained within the gastric lumen. Nonobstructive bowel gas pattern. No gross pneumoperitoneum. Lung bases clear. 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 Osseous structures intact. Multiple phleboliths noted in the pelvis. IMPRESSION: 1. Nasogastric tube and sidehole terminate within the gastric lumen. Electronically signed by: Rick Curry M.D. 11/12/2016 2:14 PM Dictated Date/Time: 11/12/2016 2:12 PM
[2016-11-12 15:55] VITALS: BP 144/80; PULSE 79; TEMP 37.1; O2SAT 95
[2016-11-12 16:00] VITALS: O2SAT 95
--- NOTE | 2016-11-12 18:54 | Progress Note ---
Subjective Date of Service: Nov 12, 2016. Subjective Pt evaluation today including: conversation w/ patient, physical exam, chart review, lab review, review of inpatient medication list Problem List Medical Problems: (1) Lower abdominal pain Status: Acute (2) Small bowel obstruction Status: Acute Review of Systems Constitutional: No see HPI, No fever, No chills, No sweats, No weight loss, No weakness, No fatigue, No problem reported Eyes: No see HPI, No worsening of vision, No eye pain, No redness, No discharge , No diplopia, No problem reported ENT: No see HPI, No hearing loss, No unusual epistaxis, No nasal symptoms, No sore throat, No tinnitus, No dental problems, No trouble swallowing, No problem reported Respiratory: No see HPI, No cough, No sputum, No wheezing, No shortness of breath, No dyspnea on exertion, No dyspnea at rest, No hemoptysis, No problem reported Cardiac: No see HPI, No chest pain, No orthopnea, No PND, No edema, No claudication, No palpitations, No problem reported Abdomen: No see HPI, No pain, No nausea, No vomiting, No diarrhea, No constipation, No GI bleeding, No problem reported Neurologic: No see HPI, No memory loss, No paralysis, No weakness, No numbness/ tingling, No vertigo, No balance problems, No problem reported Psychiatric: No see HPI, No depression symptoms, No anhedonism, No anxiety, No insomnia, No substance abuse, No problem reported Heme: No see HPI, No abnormal bleeding/bruising, No clotting problems, No swollen lymph nodes, No night sweats, No problem reported Endo: No see HPI, No fatigue, No excessive thirst, No excessive urination, No problem reported Skin: No see HPI, No rash, No itch, No new/changing skin lesions, No color change, No bleeding, No problem reported Objective Vital Signs Date Time Temp Pulse Resp B/P (MAP) Pulse Ox O2 Delivery O2 Flow Rate FiO2 11/12/16 16:00 95 Room Air 11/12/16 15:55 37.1 79 18 144/80 (101) 95 Room Air 11/12/16 08:00 Room Air 11/12/16 07:40 36.9 74 18 128/76 (93) 97 Room Air 11/12/16 00:00 Room Air 11/11/16 23:13 36.8 77 18 130/78 (95) 93 Room Air Physical Exam General Appearance: WD/WN, no apparent distress Eyes: normal inspection, EOMI ENT: normal ENT inspection, hearing grossly normal Neck: supple, no adenopathy Respiratory/Chest: chest non-tender, lungs clear, normal breath sounds, no respiratory distress Cardiovascular: regular rate, rhythm, no edema, no gallop, no JVD Abdomen: normal bowel sounds, non tender, soft Extremities: normal range of motion, non-tender Neurologic/Psychiatric: gericare aide II-XII nml as tested, no motor/sensory deficits, alert, normal mood/affect, oriented x 3 Skin: normal color, warm/dry, no rash Laboratory Results Last 24 Hours Test 11/12/16 09:18 White Blood Count 8.11 K/uL Red Blood Count 4.21 M/uL Hemoglobin 13.3 g/dL Hematocrit 38.4 % Mean Corpuscular Volume 91.2 fL Mean Corpuscular Hemoglobin 31.6 pg Mean Corpuscular Hemoglobin Concent 34.6 g/dl Platelet Count 207 K/uL Mean Platelet Volume 10.9 fL Neutrophils (%) (Auto) 89.8 % Lymphocytes (%) (Auto) 7.9 % Monocytes (%) (Auto) 2.1 % Eosinophils (%) (Auto) 0.0 % Basophils (%) (Auto) 0.1 % Neutrophils # (Auto) 7.28 K/uL Lymphocytes # (Auto) 0.64 K/uL Monocytes # (Auto) 0.17 K/uL Eosinophils # (Auto) 0.00 K/uL Basophils # (Auto) 0.01 K/uL RDW Standard Deviation 44.8 fL RDW Coefficient of Variation 13.5 % Immature Granulocyte % (Auto) 0.1 % Immature Granulocyte # (Auto) 0.01 K/uL Prothrombin Time 12.5 SECONDS Prothromb Time International Ratio 1.2 Sodium Level 139 mmol/L Potassium Level 3.9 mmol/L Chloride Level 106 mmol/L Carbon Dioxide Level 26 mmol/L Anion Gap 7.0 mmol/L Blood Urea Nitrogen 7 mg/dl Creatinine 0.74 mg/dl Estimated GFR () 109.5 Estimated GFR (Non- 94.5 BUN/Creatinine Ratio 9.1 Random Glucose 153 mg/dl Lactic Acid Level 1.7 mmol/L Calcium Level 8.3 mg/dl Total Bilirubin 0.4 mg/dl Aspartate Amino Transf (AST/SGOT) 18 U/L Alanine Aminotransferase (ALT/SGPT) 30 U/L Alkaline Phosphatase 29 U/L Total Protein 6.6 gm/dl Albumin 3.0 gm/dl Globulin 3.6 gm/dl Albumin/Globulin Ratio 0.8 Assessment and Plan 51 y/o F c/o recurrent abd pain, n/v/d. xray showed ileus vs partial SBO noted on XR. recent colonoscopy in [place] Assessment: recurrent abd pain, n/v/d: ileus vs partial SBO noted on XR Dr. Cook (GI) consult appreciated NGT, steroids, cipro/flagyl Recent CT AP done at [facility] will be retrieved CBC, PRP WNL Blood cx pending, recheck lactic acid levels given recent lactic acidosis pending Lyme given recent rash Hyperlipidemia: holding home meds OCP use: holding at this time DVT proph w lovenox , GI prophylaxis with pepcid
[2016-11-12] MEDS ORDERED: PATIENT'S HEIGHT AND/OR WEIGHT NEEDED SCH (19:30)
[2016-11-12 19:42] VITALS: BP 153/85; PULSE 77; TEMP 36.9; O2SAT 97
[2016-11-12] MEDS: FAMOTIDINE IV INJ 20 MG in DEXTROSE 5% 100ML 100 ML IV SCH (20:04)
[2016-11-12 23:58] VITALS: BP 124/68; PULSE 74; TEMP 36.8; O2SAT 97
[2016-11-13] MEDS: METRONIDAZOLE / NSS 500 MG in PREMIXED NSS 100 ML IV SCH ×3 (03:52→19:48)
[2016-11-13] MEDS: METHYLPREDNISOLONE IV 40 MG in SYRINGE 0 ML IV SCH ×3 (03:52→19:48)
[2016-11-13] MEDS: D5W AND 1/2NSS + 20MEQ KCL 1,000 ML IV SCH ×3 (03:53→21:42)
[2016-11-13 06:58] LABS: BASO % 0.1 %; BASO ABS # 0.01 K/uL (0-0.2); COMPLETE YES; HEMATOCRIT 38.9 % (37-47); IG% 0.1 %; LYMPH % 8.6 %; LYMPH ABS # 0.74 K/uL (1.2-3.4); MEAN CELL VOLUME 92.4 fL (80-100); MEAN CORPUSCULAR HEMOGLOBIN 30.6 pg (25-34); MEAN CORPUSCULAR HGB CONC 33.2 g/dl (32-36); MEAN PLATELET VOLUME 11.1 fL (7.4-10.4); MONO % 3.2 %; PLATELET COUNT 207 K/uL (130-400); RED BLOOD COUNT 4.21 M/uL (4.2-5.4); WHITE BLOOD COUNT 8.63 K/uL (4.8-10.8)
[2016-11-13 07:09] VITALS: BP 144/80; PULSE 80; TEMP 36.9; O2SAT 97
[2016-11-13 07:34] LABS: BUN/CREATININE RATIO 10.7 (10-20); CALCIUM 8.6 mg/dl (8.5-10.1); CREATININE 0.75 mg/dl (0.60-1.20); MAGNESIUM 2.2 mg/dl (1.8-2.4); POTASSIUM 4.3 mmol/L (3.5-5.1)
[2016-11-13 07:35] LABS: ALB/GLOB RATIO 0.9 (0.9-2); PHOSPHORUS 2.2 mg/dl (2.5-4.9)
[2016-11-13] MEDS: FAMOTIDINE IV INJ 20 MG in DEXTROSE 5% 100ML 100 ML IV SCH ×2 (07:55→19:48)
[2016-11-13] MEDS: ENOXAPARIN 40 MG/0.4 ML SYR SQ SCH (07:55)
[2016-11-13] MEDS: CIPROFLOXACIN / D5W 400 MG in PREMIXED IN D5W 200 ML IV SCH ×2 (09:34→21:48)
--- NOTE | 2016-11-13 12:15 | DIAGNOSTIC IMAGING REPORT ---
ABDOMEN 2 VIEWS HISTORY: crohn's/small bowel obstruction, compare to prior films COMPARISON: Abdominal series 11/12/2016. FINDINGS: The nasogastric tube terminates in the body of the stomach. This is unchanged in position. No pneumoperitoneum. No pneumatosis. No dilated loops of bowel identified. Multiple pelvic phleboliths are again noted. Stable calcification adjacent to the right L3 transverse process. IMPRESSION: 1. No evidence for bowel obstruction. 2. Nasogastric tube remains within the stomach. Electronically signed by: Gene Aponte M.D. 11/13/2016 12:14 PM Dictated Date/Time: 11/13/2016 12:12 PM
--- NOTE | 2016-11-13 15:26 | Gastroenterology Progress Note ---
Progress Note Date of Service: Nov 13, 2016 Subjective Pt evaluation today including: conversation w/ patient, conversation w/ family , physical exam, chart review, lab review 51yo being followed with hx of crohn's disease on [place] admitted with sx's of SBO, NGT remains in place, currently on cipro/flagyl and IV steroids. Pt continues to improve, denies abdominal pain. Has passed gas earlier this afternoon repeat KUB shows no dilated bowel loops, NGT in place no nausea or vomiting MR enterography complete 11/11/16 confirms crohn's at TI with phlegmonous collection adjacent to ileocecal valve with mild to moderate small bowel obstruction - reviewed in detail with pt and family at bedside today labs stable, blood cultures negative Review of Systems Constitutional: No fever, No chills ENT: No problem reported Respiratory: No shortness of breath Cardiac: No chest pain Abdomen: + see HPI Female : No problem reported Medications Current Inpatient Medications Medications (Trade) Dose Ordered Sig/Cheryl Route Start Time Stop Time Status Last Admin Dose Admin Acetaminophen (Tylenol Tab) 650 mg Q4H PRN PO 11/11/16 11:45 12/11/16 11:44 Magnesium Hydroxide (Milk Of Magnesia Susp) 30 ml Q6H PRN PO 11/11/16 11:45 12/11/16 11:44 Ondansetron HCl (Zofran Inj) 4 mg Q6H PRN IV 11/11/16 11:45 12/11/16 11:44 Ciprofloxacin/ Dextrose 400 mg/ Prmx 200 ml @ 100 mls/hr Q12@1000,2200 IV 11/11/16 22:00 11/20/16 23:59 11/13/16 09:34 100 MLS/HR Metronidazole 500 mg/Prmx 100 ml @ 100 mls/hr Q8@0400,1200,2000 IV 11/11/16 20:00 11/21/16 04:59 11/13/16 11:32 100 MLS/HR Potassium Chloride/Dextrose/ Sod Cl 1,000 ml @ 125 mls/hr Q8H IV 11/11/16 13:30 12/11/16 13:29 11/13/16 13:25 125 MLS/HR Methylprednisolone Sodium Succinate 40 mg/Syringe 0.64 ml @ 1.5 mls/min Q8@0400,1200,2000 IV 11/11/16 20:00 12/11/16 19:59 11/13/16 11:32 1.5 MLS/MIN Morphine Sulfate (MoRPHine SULFATE INJ) 1 mg Q3H PRN IV 11/11/16 14:30 11/25/16 14:29 Famotidine 20 mg/ Dextrose 102 ml @ 200 mls/hr Q12H IV 11/12/16 20:00 12/12/16 19:59 11/13/16 07:55 200 MLS/HR Enoxaparin Sodium (Lovenox Inj) 40 mg QAM SQ 11/13/16 09:00 12/13/16 08:59 11/13/16 07:55 40 MG Objective Vital Signs Date Time Temp Pulse Resp B/P (MAP) Pulse Ox O2 Delivery O2 Flow Rate FiO2 11/13/16 08:00 Room Air 11/13/16 07:09 36.9 80 20 144/80 (101) 97 Room Air 11/13/16 00:00 Room Air 11/12/16 23:58 36.8 74 18 124/68 (86) 97 Room Air 11/12/16 19:42 36.9 77 18 153/85 (107) 97 Room Air 11/12/16 16:00 95 Room Air 11/12/16 15:55 37.1 79 18 144/80 (101) 95 Room Air Physical Exam General Appearance: WD/WN, no apparent distress ENT: + pertinent finding (NGT intact) Respiratory/Chest: normal breath sounds, no respiratory distress Abdomen: non tender (bowel sounds present, slightly hypoactive, no high pitched sounds noted), soft Extremities: no pedal edema Neurologic/Psych: alert, normal mood/affect, oriented x 3 Skin: normal color Laboratory Results Last 24 Hours Test 11/13/16 06:30 White Blood Count 8.63 K/uL Red Blood Count 4.21 M/uL Hemoglobin 12.9 g/dL Hematocrit 38.9 % Mean Corpuscular Volume 92.4 fL Mean Corpuscular Hemoglobin 30.6 pg Mean Corpuscular Hemoglobin Concent 33.2 g/dl Platelet Count 207 K/uL Mean Platelet Volume 11.1 fL Neutrophils (%) (Auto) 88.0 % Lymphocytes (%) (Auto) 8.6 % Monocytes (%) (Auto) 3.2 % Eosinophils (%) (Auto) 0.0 % Basophils (%) (Auto) 0.1 % Neutrophils # (Auto) 7.59 K/uL Lymphocytes # (Auto) 0.74 K/uL Monocytes # (Auto) 0.28 K/uL Eosinophils # (Auto) 0.00 K/uL Basophils # (Auto) 0.01 K/uL RDW Standard Deviation 45.3 fL RDW Coefficient of Variation 13.5 % Immature Granulocyte % (Auto) 0.1 % Immature Granulocyte # (Auto) 0.01 K/uL Sodium Level 138 mmol/L Potassium Level 4.3 mmol/L Chloride Level 105 mmol/L Carbon Dioxide Level 25 mmol/L Anion Gap 8.0 mmol/L Blood Urea Nitrogen 8 mg/dl Creatinine 0.75 mg/dl Est Creatinine Clear Calc Drug Dose 97.1 ml/min Estimated GFR () 107.7 Estimated GFR (Non- 92.9 BUN/Creatinine Ratio 10.7 Random Glucose 150 mg/dl Calcium Level 8.6 mg/dl Phosphorus Level 2.2 mg/dl Magnesium Level 2.2 mg/dl Total Bilirubin 0.4 mg/dl Aspartate Amino Transf (AST/SGOT) 15 U/L Alanine Aminotransferase (ALT/SGPT) 30 U/L Alkaline Phosphatase 30 U/L Total Protein 6.4 gm/dl Albumin 3.0 gm/dl Globulin 3.4 gm/dl Albumin/Globulin Ratio 0.9 Assessment and Plan 51yo with crohn's disease admitted with SBO with NGT decompression - clinically improving continue IV antibiotics Continue IV steroids consider surgical consult depending on pt course KUB shows no dilated bowel loops today, pt passing gas, ok to d/c NGT per Dr. Cook, will start trial of clears. Hold off on planned CT scan for tomorrow given clinical improvement, may consider repeat CT to assess phlegmon Will continue to follow. I saw and evaluated the patient. She does appear to be improved today. I would suggest removal of the NG tube and advancing to a clear liquid diet. We should continue with current antibiotic coverage intravenous steroids. I would like to do a CT of the abdomen on or Saturday to follow the phlegmon that was seen last week.
[2016-11-13 15:58] VITALS: BP 134/82; PULSE 79; TEMP 36.8; O2SAT 95
--- NOTE | 2016-11-13 19:40 | Progress Note ---
Subjective Date of Service: Nov 13, 2016. Subjective Pt evaluation today including: conversation w/ patient, physical exam, chart review, lab review, review of inpatient medication list Problem List Medical Problems: (1) Lower abdominal pain Status: Acute (2) Small bowel obstruction Status: Acute Review of Systems Constitutional: No see HPI, No fever, No chills, No sweats, No weight loss, No weakness, No fatigue, No problem reported Eyes: No see HPI, No worsening of vision, No eye pain, No redness, No discharge , No diplopia, No problem reported ENT: No see HPI, No hearing loss, No unusual epistaxis, No nasal symptoms, No sore throat, No tinnitus, No dental problems, No trouble swallowing, No problem reported Respiratory: No see HPI, No cough, No sputum, No wheezing, No shortness of breath, No dyspnea on exertion, No dyspnea at rest, No hemoptysis, No problem reported Cardiac: No see HPI, No chest pain, No orthopnea, No PND, No edema, No claudication, No palpitations, No problem reported Abdomen: No see HPI, No pain, No nausea, No vomiting, No diarrhea, No constipation, No GI bleeding, No problem reported Musculoskeletal: No see HPI, No joint pain, No muscle pain, No swelling, No calf pain, No problem reported Neurologic: No see HPI, No memory loss, No paralysis, No weakness, No numbness/ tingling, No vertigo, No balance problems, No problem reported Psychiatric: No see HPI, No depression symptoms, No anhedonism, No anxiety, No insomnia, No substance abuse, No problem reported Heme: No see HPI, No abnormal bleeding/bruising, No clotting problems, No swollen lymph nodes, No night sweats, No problem reported Endo: No see HPI, No fatigue, No excessive thirst, No excessive urination, No problem reported Skin: No see HPI, No rash, No itch, No new/changing skin lesions, No color change, No bleeding, No problem reported Objective Vital Signs Date Time Temp Pulse Resp B/P (MAP) Pulse Ox O2 Delivery O2 Flow Rate FiO2 11/13/16 16:00 Room Air 11/13/16 15:58 36.8 79 18 134/82 (99) 95 Room Air 11/13/16 08:00 Room Air 11/13/16 07:09 36.9 80 20 144/80 (101) 97 Room Air 11/13/16 00:00 Room Air 11/12/16 23:58 36.8 74 18 124/68 (86) 97 Room Air 11/12/16 19:42 36.9 77 18 153/85 (107) 97 Room Air Physical Exam General Appearance: WD/WN, no apparent distress Eyes: normal inspection, PERRL ENT: normal ENT inspection, hearing grossly normal Neck: supple Respiratory/Chest: chest non-tender, lungs clear, normal breath sounds, no respiratory distress, no accessory muscle use Cardiovascular: regular rate, rhythm, no edema, no gallop, no JVD, no murmur Abdomen: normal bowel sounds, non tender, soft, no organomegaly Extremities: normal range of motion, non-tender, normal inspection, no pedal edema Neurologic/Psychiatric: entry level sales consultant II-XII nml as tested, no motor/sensory deficits, alert, normal mood/affect, oriented x 3 Skin: normal color, warm/dry, no rash Laboratory Results Last 24 Hours Test 11/13/16 06:30 White Blood Count 8.63 K/uL Red Blood Count 4.21 M/uL Hemoglobin 12.9 g/dL Hematocrit 38.9 % Mean Corpuscular Volume 92.4 fL Mean Corpuscular Hemoglobin 30.6 pg Mean Corpuscular Hemoglobin Concent 33.2 g/dl Platelet Count 207 K/uL Mean Platelet Volume 11.1 fL Neutrophils (%) (Auto) 88.0 % Lymphocytes (%) (Auto) 8.6 % Monocytes (%) (Auto) 3.2 % Eosinophils (%) (Auto) 0.0 % Basophils (%) (Auto) 0.1 % Neutrophils # (Auto) 7.59 K/uL Lymphocytes # (Auto) 0.74 K/uL Monocytes # (Auto) 0.28 K/uL Eosinophils # (Auto) 0.00 K/uL Basophils # (Auto) 0.01 K/uL RDW Standard Deviation 45.3 fL RDW Coefficient of Variation 13.5 % Immature Granulocyte % (Auto) 0.1 % Immature Granulocyte # (Auto) 0.01 K/uL Sodium Level 138 mmol/L Potassium Level 4.3 mmol/L Chloride Level 105 mmol/L Carbon Dioxide Level 25 mmol/L Anion Gap 8.0 mmol/L Blood Urea Nitrogen 8 mg/dl Creatinine 0.75 mg/dl Est Creatinine Clear Calc Drug Dose 97.1 ml/min Estimated GFR () 107.7 Estimated GFR (Non- 92.9 BUN/Creatinine Ratio 10.7 Random Glucose 150 mg/dl Calcium Level 8.6 mg/dl Phosphorus Level 2.2 mg/dl Magnesium Level 2.2 mg/dl Total Bilirubin 0.4 mg/dl Aspartate Amino Transf (AST/SGOT) 15 U/L Alanine Aminotransferase (ALT/SGPT) 30 U/L Alkaline Phosphatase 30 U/L Total Protein 6.4 gm/dl Albumin 3.0 gm/dl Globulin 3.4 gm/dl Albumin/Globulin Ratio 0.9 Assessment and Plan 51 y/o F c/o recurrent abd pain, n/v/d. xray showed ileus vs partial SBO noted on XR. recent colonoscopy in [place] Assessment: recurrent abd pain, n/v/d: ileus vs partial SBO noted on XR Dr. Cook (GI) consult appreciated steroids, cipro/flagyl Recent CT AP done at [facility] [place] will be retrieved CBC, PRP WNL Blood cx negative thus far pending Lyme given recent rash CT scan Saturday to follow up on Phlegmon as per Dr. Cook DC NGT, and start clear liquid Hyperlipidemia: holding home meds OCP use: holding at this time DVT proph w lovenox , GI prophylaxis with pepcid
[2016-11-13 23:47] VITALS: BP 126/69; PULSE 66; TEMP 37.1; O2SAT 96
[2016-11-14] MEDS: METRONIDAZOLE / NSS 500 MG in PREMIXED NSS 100 ML IV SCH ×3 (04:00→20:41)
[2016-11-14] MEDS: METHYLPREDNISOLONE IV 40 MG in SYRINGE 0 ML IV SCH ×3 (04:00→20:41)
[2016-11-14] MEDS: D5W AND 1/2NSS + 20MEQ KCL 1,000 ML IV SCH ×3 (05:28→20:41)
[2016-11-14 07:36] LABS: BASO % 0.1 %; BASO ABS # 0.01 K/uL (0-0.2); COMPLETE YES; HEMATOCRIT 38.4 % (37-47); IG% 0.3 %; LYMPH % 11.1 %; LYMPH ABS # 0.75 K/uL (1.2-3.4); MEAN CELL VOLUME 92.1 fL (80-100); MEAN CORPUSCULAR HEMOGLOBIN 30.7 pg (25-34); MEAN CORPUSCULAR HGB CONC 33.3 g/dl (32-36); MEAN PLATELET VOLUME 11.5 fL (7.4-10.4); MONO % 4.2 %; NEUT % 84.3 %; PLATELET COUNT 178 K/uL (130-400); RED BLOOD COUNT 4.17 M/uL (4.2-5.4); WHITE BLOOD COUNT 6.73 K/uL (4.8-10.8)
[2016-11-14] MEDS: ENOXAPARIN 40 MG/0.4 ML SYR SQ SCH (07:42)
[2016-11-14] MEDS: FAMOTIDINE IV INJ 20 MG in DEXTROSE 5% 100ML 100 ML IV SCH ×2 (07:42→20:40)
[2016-11-14 08:07] LABS: BUN/CREATININE RATIO 11.1 (10-20); CALCIUM 8.6 mg/dl (8.5-10.1); CREATININE 0.82 mg/dl (0.60-1.20); POTASSIUM 4.1 mmol/L (3.5-5.1)
[2016-11-14 08:09] LABS: ALB/GLOB RATIO 0.8 (0.9-2)
--- NOTE | 2016-11-14 09:36 | Gastroenterology Progress Note ---
Progress Note Date of Service: Nov 14, 2016 Subjective Pt evaluation today including: conversation w/ patient, physical exam, chart review Pt was seen and evaluated. No acute events overnight. NG was removed yesterday and she was started on a clear liquid diet. Tolerated well. Abdominal pain is greatly resolved, can still get twinges of pain. No BM x 2 days. She is passing gas. No fever, chills, chest pain, SOB. She wants to go home. KUB 11/13/16: No evidence for bowel obstruction. Nasogastric tube remains within the stomach. Review of Systems Constitutional: No fever, No chills Respiratory: No cough, No shortness of breath Cardiac: No chest pain Abdomen: + pain, No nausea, No vomiting, No diarrhea, No constipation Medications Current Inpatient Medications Medications (Trade) Dose Ordered Sig/Cheryl Route Start Time Stop Time Status Last Admin Dose Admin Acetaminophen (Tylenol Tab) 650 mg Q4H PRN PO 11/11/16 11:45 12/11/16 11:44 Magnesium Hydroxide (Milk Of Magnesia Susp) 30 ml Q6H PRN PO 11/11/16 11:45 12/11/16 11:44 Ondansetron HCl (Zofran Inj) 4 mg Q6H PRN IV 11/11/16 11:45 12/11/16 11:44 Ciprofloxacin/ Dextrose 400 mg/ Prmx 200 ml @ 100 mls/hr Q12@1000,2200 IV 11/11/16 22:00 11/20/16 23:59 11/13/16 21:48 100 MLS/HR Metronidazole 500 mg/Prmx 100 ml @ 100 mls/hr Q8@0400,1200,1999 IV 11/11/16 20:00 11/21/16 04:59 11/14/16 04:00 100 MLS/HR Potassium Chloride/Dextrose/ Sod Cl 1,000 ml @ 125 mls/hr Q8H IV 11/11/16 13:30 12/11/16 13:29 11/14/16 05:28 125 MLS/HR Methylprednisolone Sodium Succinate 40 mg/Syringe 0.64 ml @ 1.5 mls/min Q8@0400,1200,1999 IV 11/11/16 20:00 12/11/16 19:59 11/14/16 04:00 1.5 MLS/MIN Morphine Sulfate (MoRPHine SULFATE INJ) 1 mg Q3H PRN IV 11/11/16 14:30 11/25/16 14:29 Famotidine 20 mg/ Dextrose 102 ml @ 200 mls/hr Q12H IV 11/12/16 20:00 12/12/16 19:59 11/14/16 07:42 200 MLS/HR Enoxaparin Sodium (Lovenox Inj) 40 mg QAM SQ 11/13/16 09:00 12/13/16 08:59 11/14/16 07:42 40 MG Objective Vital Signs Date Time Temp Pulse Resp B/P (MAP) Pulse Ox O2 Delivery O2 Flow Rate FiO2 11/14/16 08:00 Room Air 11/14/16 00:00 Room Air 11/13/16 23:47 37.1 66 20 126/69 (88) 96 Room Air 11/13/16 20:00 Room Air 11/13/16 16:00 Room Air 11/13/16 15:58 36.8 79 18 134/82 (99) 95 Room Air Physical Exam General Appearance: no apparent distress (she is upright in bed on her laptop) Eyes: PERRL ENT: hearing grossly normal Respiratory/Chest: lungs clear Cardiovascular: no edema Abdomen: normal bowel sounds, non tender, soft, no organomegaly Neurologic/Psych: alert, normal mood/affect, oriented x 3 Skin: normal color, no jaundice Laboratory Results Last 24 Hours Test 11/14/16 07:05 White Blood Count 6.73 K/uL Red Blood Count 4.17 M/uL Hemoglobin 12.8 g/dL Hematocrit 38.4 % Mean Corpuscular Volume 92.1 fL Mean Corpuscular Hemoglobin 30.7 pg Mean Corpuscular Hemoglobin Concent 33.3 g/dl Platelet Count 178 K/uL Mean Platelet Volume 11.5 fL Neutrophils (%) (Auto) 84.3 % Lymphocytes (%) (Auto) 11.1 % Monocytes (%) (Auto) 4.2 % Eosinophils (%) (Auto) 0.0 % Basophils (%) (Auto) 0.1 % Neutrophils # (Auto) 5.67 K/uL Lymphocytes # (Auto) 0.75 K/uL Monocytes # (Auto) 0.28 K/uL Eosinophils # (Auto) 0.00 K/uL Basophils # (Auto) 0.01 K/uL RDW Standard Deviation 44.9 fL RDW Coefficient of Variation 13.2 % Immature Granulocyte % (Auto) 0.3 % Immature Granulocyte # (Auto) 0.02 K/uL Sodium Level 137 mmol/L Potassium Level 4.1 mmol/L Chloride Level 104 mmol/L Carbon Dioxide Level 27 mmol/L Anion Gap 6.0 mmol/L Blood Urea Nitrogen 9 mg/dl Creatinine 0.82 mg/dl Est Creatinine Clear Calc Drug Dose 88.8 ml/min Estimated GFR () 96.7 Estimated GFR (Non- 83.4 BUN/Creatinine Ratio 11.1 Random Glucose 141 mg/dl Calcium Level 8.6 mg/dl Total Bilirubin 0.4 mg/dl Aspartate Amino Transf (AST/SGOT) 13 U/L Alanine Aminotransferase (ALT/SGPT) 36 U/L Alkaline Phosphatase 28 U/L Total Protein 6.2 gm/dl Albumin 2.8 gm/dl Globulin 3.4 gm/dl Albumin/Globulin Ratio 0.8 Assessment and Plan 51yo with crohn's disease admitted with SBO with NGT decompression - clinically improving - NG was removed and she was started on clear liquids yesterday. She is tolerating clears well. Continue IV ABX Continue IV steroids Consider repeat CT /Saturday to assess phlegmon Follow up with Dr. Rowe regarding pentasa vs biologic Call with questions. GI to follow while admitted. I saw and evaluated the patient. She notes that she feels much improved today. Given the large phlegmon in her ileal region I would suggest a repeat CT scan does not have an abscess.
[2016-11-14] MEDS: CIPROFLOXACIN / D5W 400 MG in PREMIXED IN D5W 200 ML IV SCH ×2 (09:49→21:21)
[2016-11-14 11:38] VITALS: BP 142/86; PULSE 61; TEMP 36.8; O2SAT 98
--- NOTE | 2016-11-14 14:56 | Hospitalist Progress Note ---
Hospitalist Progress Note Date of Service Nov 14, 2016. (Phuong Jerome ., PA-C) Subjective Pt evaluation today including: conversation w/ patient, conversation w/ family , physical exam, chart review, lab review, review of studies, review of inpatient medication list Voiding: no voiding problems, no incontinence Patient states she is feeling well. +flatus. No BM since 11/11. NGT removed yesterday- tolerating clear liquid diet. No abdominal pain. Patient denies any fever, chills, sweats, lightheadedness, dizziness, vision changes, CP, palpitations, edema, SOB, wheezing, cough, abdominal pain, nausea, vomiting, diarrhea, urinary symptoms, melena, numbness/tingling, weakness, muscle/joint pain, anxiety/depression, active bleeding, or new skin discoloration/changes. (Phuong Jerome ., PA-C) Medications Current Inpatient Medications Medications (Trade) Dose Ordered Sig/Cheryl Route Start Time Stop Time Status Last Admin Dose Admin Acetaminophen (Tylenol Tab) 650 mg Q4H PRN PO 11/11/16 11:45 12/11/16 11:44 Magnesium Hydroxide (Milk Of Magnesia Susp) 30 ml Q6H PRN PO 11/11/16 11:45 12/11/16 11:44 Ondansetron HCl (Zofran Inj) 4 mg Q6H PRN IV 11/11/16 11:45 12/11/16 11:44 Ciprofloxacin/ Dextrose 400 mg/ Prmx 200 ml @ 100 mls/hr Q12@1000,2200 IV 11/11/16 22:00 11/20/16 23:59 11/14/16 09:49 100 MLS/HR Metronidazole 500 mg/Prmx 100 ml @ 100 mls/hr Q8@0400,1200,1999 IV 11/11/16 20:00 11/21/16 04:59 11/14/16 11:59 100 MLS/HR Potassium Chloride/Dextrose/ Sod Cl 1,000 ml @ 125 mls/hr Q8H IV 11/11/16 13:30 12/11/16 13:29 11/14/16 13:22 125 MLS/HR Methylprednisolone Sodium Succinate 40 mg/Syringe 0.64 ml @ 1.5 mls/min Q8@0400,1200,1999 IV 11/11/16 20:00 12/11/16 19:59 11/14/16 11:59 1.5 MLS/MIN Morphine Sulfate (MoRPHine SULFATE INJ) 1 mg Q3H PRN IV 11/11/16 14:30 11/25/16 14:29 Famotidine 20 mg/ Dextrose 102 ml @ 200 mls/hr Q12H IV 11/12/16 20:00 12/12/16 19:59 11/14/16 07:42 200 MLS/HR Enoxaparin Sodium (Lovenox Inj) 40 mg QAM SQ 11/13/16 09:00 12/13/16 08:59 11/14/16 07:42 40 MG (Phuong Jerome PA-C) Objective Vital Signs Date Time Temp Pulse Resp B/P (MAP) Pulse Ox O2 Delivery O2 Flow Rate FiO2 11/14/16 11:38 36.8 61 16 142/86 (104) 98 11/14/16 08:00 Room Air 11/14/16 00:00 Room Air 11/13/16 23:47 37.1 66 20 126/69 (88) 96 Room Air 11/13/16 20:00 Room Air 11/13/16 16:00 Room Air 11/13/16 15:58 36.8 79 18 134/82 (99) 95 Room Air (Phuong Jerome PA-C) Physical Exam General Appearance: no apparent distress Eyes: normal inspection, PERRL ENT: hearing grossly normal Neck: supple Respiratory/Chest: lungs clear, no respiratory distress, no accessory muscle use Cardiovascular: regular rate, rhythm Abdomen: normal bowel sounds, non tender, soft Extremities: no pedal edema, no calf tenderness Neurologic/Psychiatric: alert, normal mood/affect, oriented x 3 Skin: normal color, warm/dry, no rash (Phuong Jerome PA-C) Laboratory Results Last 24 Hours Test 11/14/16 07:05 White Blood Count 6.73 K/uL Red Blood Count 4.17 M/uL Hemoglobin 12.8 g/dL Hematocrit 38.4 % Mean Corpuscular Volume 92.1 fL Mean Corpuscular Hemoglobin 30.7 pg Mean Corpuscular Hemoglobin Concent 33.3 g/dl Platelet Count 178 K/uL Mean Platelet Volume 11.5 fL Neutrophils (%) (Auto) 84.3 % Lymphocytes (%) (Auto) 11.1 % Monocytes (%) (Auto) 4.2 % Eosinophils (%) (Auto) 0.0 % Basophils (%) (Auto) 0.1 % Neutrophils # (Auto) 5.67 K/uL Lymphocytes # (Auto) 0.75 K/uL Monocytes # (Auto) 0.28 K/uL Eosinophils # (Auto) 0.00 K/uL Basophils # (Auto) 0.01 K/uL RDW Standard Deviation 44.9 fL RDW Coefficient of Variation 13.2 % Immature Granulocyte % (Auto) 0.3 % Immature Granulocyte # (Auto) 0.02 K/uL Sodium Level 137 mmol/L Potassium Level 4.1 mmol/L Chloride Level 104 mmol/L Carbon Dioxide Level 27 mmol/L Anion Gap 6.0 mmol/L Blood Urea Nitrogen 9 mg/dl Creatinine 0.82 mg/dl Est Creatinine Clear Calc Drug Dose 88.8 ml/min Estimated GFR () 96.7 Estimated GFR (Non- 83.4 BUN/Creatinine Ratio 11.1 Random Glucose 141 mg/dl Calcium Level 8.6 mg/dl Total Bilirubin 0.4 mg/dl Aspartate Amino Transf (AST/SGOT) 13 U/L Alanine Aminotransferase (ALT/SGPT) 36 U/L Alkaline Phosphatase 28 U/L Total Protein 6.2 gm/dl Albumin 2.8 gm/dl Globulin 3.4 gm/dl Albumin/Globulin Ratio 0.8 (Phuong Jerome, PA-C) Assessment and Plan 51 y/o F c/o recurrent abdominal pain, n/v/d. X-ray showed ileus vs partial SBO noted on XR. recent colonoscopy in [place]. Partial SBO/Crohn's disease: - Admitted to med/surg - IV Flagyl + Vancomycin since 11/11 - IV Solu Medrol 40 mg q8 hrs - IV Morphine 1 mg q3 hrs PRN for pain control - NGT d/c'd on 11/13 -- Advanced diet to clear- tolerating well- advance to full clear on 11/14 per GI recommendations - IV NS + KCL @ 125 ml/hr until tolerating full diet - BCx- NGTD - Lyme disease- negative - GI consulted, appreciate recommendations -- Repeat CT scan tomorrow to assess phlegmon - Follow CBC and PRP Hyperlipidemia: Lipitor 20 mg HS held OCP use: Holding at this time GI Prophylaxis: IV Pepcid DVT Prophylaxis: Lovenox Dispo: Discharge to home once medically stable- no discharge needs anticipated (Phuong Jerome ., PA-C) Attending Attestation: Pt seen/examined, chart reviewed, and care plan d/w MILLER Jerome. I agree w/ the cody components of her documentation. Pt feeling much better. No abd pain. Tolerating diet. No nausea, emesis. +flatus no bowel movement yet VSS no fever gen - nad abd - soft, NT, ND, BS+, no HSM ext - no edema mouth - no ulcers skin - no rashes A/P: New-onset Crohn's disease with ileitis - improving. Ileus/partial SBO - resolved. Phlegmon - clinically improved. Defer abx/steroid management to GI. Progressing nicely. Zurdo Canales MD (Zurdo Canales MD)
[2016-11-14 16:07] VITALS: BP 134/75; PULSE 76; TEMP 36.9; O2SAT 97
[2016-11-14 23:08] VITALS: BP 154/92; PULSE 57; TEMP 36.9; O2SAT 97
[2016-11-15] MEDS: METRONIDAZOLE / NSS 500 MG in PREMIXED NSS 100 ML IV SCH ×3 (04:20→20:10)
[2016-11-15] MEDS: METHYLPREDNISOLONE IV 40 MG in SYRINGE 0 ML IV SCH ×3 (04:20→20:10)
[2016-11-15] MEDS ORDERED: OPTIRAY 320 IV PRN (05:45)
[2016-11-15] MEDS: D5W AND 1/2NSS + 20MEQ KCL 1,000 ML IV SCH ×3 (06:01→20:12)
[2016-11-15 07:16] VITALS: BP 148/62; PULSE 76; TEMP 37.1; O2SAT 97
[2016-11-15] MEDS: FAMOTIDINE IV INJ 20 MG in DEXTROSE 5% 100ML 100 ML IV SCH ×2 (08:07→20:10)
[2016-11-15] MEDS: ENOXAPARIN 40 MG/0.4 ML SYR SQ SCH (08:12)
--- NOTE | 2016-11-15 09:11 | DIAGNOSTIC IMAGING REPORT ---
ABDOMEN AND PELVIS CT WITH IV AND ORAL CONTRAST CT DOSE: 627.91 mGy.cm HISTORY: Inflammatory bowel disease. Generalized abdominal pain., hx of SBO, assess phlegmon TECHNIQUE: Multiaxial CT images of the abdomen and pelvis were performed following the use of intravenous and oral contrast. A dose lowering technique was utilized adhering to the principles of ALARA. COMPARISON STUDY: Abdomen and pelvis CT 06/15/2010. FINDINGS: Faint tree-in-bud nodular opacity seen within the left lower lobe. No pneumoperitoneum. No pneumatosis. The liver, spleen, adrenal glands, pancreas, kidneys, and gallbladder are unremarkable. Mild thickening within the majority of the distal ileum with moderate to severe bowel wall thickening at the terminal ileum near the ileocecal valve and within the cecum and proximal ascending colon. There is also a 4.4 x 3.3 cm heterogeneous soft tissue abnormality abutting the terminal ileum best seen on image 241. This could represent soft tissue mass or phlegmon. The appendix is surgically absent. There are few scattered soft tissue nodules seen within the omentum. Dominant soft tissue nodule measures 1 cm. No retroperitoneal lymphadenopathy. The bladder is unremarkable. There is a 3.8 cm heterogeneous mass within the uterine fundus. This favors a fibroid. The right ovary is slightly enlarged compared to the left. Trace pelvic free fluid. IMPRESSION: Abnormal thickening within the distal ileum and proximal ascending colon/cecum. This could be a result of the patient's inflammatory bowel disease. There is also a 4.4 x 3.3 cm heterogeneous soft tissue abnormality abutting the terminal ileum. This could represent phlegmon in the setting of the inflammatory bowel disease. However, these findings are also concerning for a soft tissue mass such as an adenocarcinoma or lymphoma. In addition, there are multiple scattered omental nodules measuring up to 1 cm which are highly suspicious for peritoneal carcinomatosis in the setting of a neoplastic process. Gastroenterology and/or surgical consultation is recommended for further evaluation. Electronically signed by: Gene Aponte M.D. 11/15/2016 9:09 AM Dictated Date/Time: 11/15/2016 8:45 AM
--- NOTE | 2016-11-15 09:24 | Gastroenterology Progress Note ---
Progress Note Date of Service: Nov 15, 2016 Subjective Pt evaluation today including: conversation w/ patient, physical exam, chart review, lab review Pt was seen and evaluated this AM, no acute events overnight. Tolerated a full liquid diet. No abdominal pain. Passing flatus, no BM. She would like to try regular diet. She just returned from CT. CT 11/15/16: Abnormal thickening within the distal ileum and proximal ascending colon/cecum. This could be a result of the patient's inflammatory bowel disease. There is also a 4.4 x 3.3 cm heterogeneous soft tissue abnormality abutting the terminal ileum. This could represent phlegmon in the setting of the inflammatory bowel disease. However, these findings are also concerning for a soft tissue mass such as an adenocarcinoma or lymphoma. In addition, there are multiple scattered omental nodules measuring up to 1 cm which are highly suspicious for peritoneal carcinomatosis in the setting of a neoplastic process. Gastroenterology and/or surgical consultation is recommended for further evaluation Review of Systems Constitutional: No fever Respiratory: No cough Cardiac: No chest pain Abdomen: No pain, No nausea Medications Current Inpatient Medications Medications (Trade) Dose Ordered Sig/Cheryl Route Start Time Stop Time Status Last Admin Dose Admin Acetaminophen (Tylenol Tab) 650 mg Q4H PRN PO 11/11/16 11:45 12/11/16 11:44 Magnesium Hydroxide (Milk Of Magnesia Susp) 30 ml Q6H PRN PO 11/11/16 11:45 12/11/16 11:44 Ondansetron HCl (Zofran Inj) 4 mg Q6H PRN IV 11/11/16 11:45 12/11/16 11:44 Ciprofloxacin/ Dextrose 400 mg/ Prmx 200 ml @ 100 mls/hr Q12@1000,2200 IV 11/11/16 22:00 11/20/16 23:59 11/14/16 21:21 100 MLS/HR Metronidazole 500 mg/Prmx 100 ml @ 100 mls/hr Q8@0400,1200,2000 IV 11/11/16 20:00 11/21/16 04:59 11/15/16 04:20 100 MLS/HR Potassium Chloride/Dextrose/ Sod Cl 1,000 ml @ 125 mls/hr Q8H IV 11/11/16 13:30 12/11/16 13:29 11/15/16 06:01 125 MLS/HR Methylprednisolone Sodium Succinate 40 mg/Syringe 0.64 ml @ 1.5 mls/min Q8@0400,1200,2000 IV 11/11/16 20:00 12/11/16 19:59 11/15/16 04:20 1.5 MLS/MIN Morphine Sulfate (MoRPHine SULFATE INJ) 1 mg Q3H PRN IV 11/11/16 14:30 11/25/16 14:29 Famotidine 20 mg/ Dextrose 102 ml @ 200 mls/hr Q12H IV 11/12/16 20:00 12/12/16 19:59 11/15/16 08:07 200 MLS/HR Enoxaparin Sodium (Lovenox Inj) 40 mg QAM SQ 11/13/16 09:00 12/13/16 08:59 11/15/16 08:12 40 MG Ioversol (Optiray 320) 100 ml UD PRN IV 11/15/16 05:45 11/19/16 05:44 Objective Vital Signs Date Time Temp Pulse Resp B/P (MAP) Pulse Ox O2 Delivery O2 Flow Rate FiO2 11/15/16 07:16 37.1 76 18 148/62 (90) 97 Room Air 11/15/16 00:00 Room Air 11/14/16 23:08 36.9 57 18 154/92 (112) 97 Room Air 11/14/16 16:07 36.9 76 18 134/75 (94) 97 Room Air 11/14/16 16:00 Room Air 11/14/16 11:38 36.8 61 16 142/86 (104) 98 Physical Exam General Appearance: no apparent distress Eyes: PERRL ENT: hearing grossly normal Neck: supple Respiratory/Chest: lungs clear, normal breath sounds, no respiratory distress, no accessory muscle use Cardiovascular: regular rate, rhythm Abdomen: normal bowel sounds, non tender, soft Neurologic/Psych: alert, normal mood/affect, oriented x 3 Skin: normal color Assessment and Plan 51yo with crohn's disease admitted with SBO with NGT decompression - clinically improving - NG was removed and she was started on clear liquids yesterday. She is tolerating clears well. - Advance diet as tolerated - low residue - Continue IV ABX, Continue IV steroids until is tolerating PO - Follow up CT scan - Will need to be discharged on pentasa, completion of cipro/flagyl x 2 weeks and steroid taper - Prednisone 40 x 2 weeks, prednisone 20 x 1 week, prednisone 10 x 1 week, prednisone 5 x 1 week, prednisone 2.5 x 1 week - Follow up with Dr. Rowe regarding pentasa vs biologic Reviewed CT. Will plan for inhouse colonoscopy tomorrow 11/16/16. Clear liquids today/ 119g Miralax and 20 mg Dulcolax at 1700. 119g miralax at 2100. NPO after midnight. I saw and evaluated the patient. Her most recent CT shows significant inflammatory changes and a possible masslike area in the terminal ileum. Given this and the nonspecific biopsies from her last examination I would suggest a repeat colonoscopy to further clarify her underlying diagnosis.
[2016-11-15] MEDS: CIPROFLOXACIN / D5W 400 MG in PREMIXED IN D5W 200 ML IV SCH ×2 (09:32→21:49)
--- NOTE | 2016-11-15 10:50 | Hospitalist Progress Note ---
Hospitalist Progress Note Date of Service Nov 15, 2016. (Phuong Jerome ., AKI) Subjective Pt evaluation today including: conversation w/ patient, physical exam, chart review, lab review, review of studies, conversation w/ practice management consultant (BEN Jessica ) , review of inpatient medication list Voiding: no voiding problems, no incontinence Patient states she is feeling well. Tolerating full liquid diet. +flatus, no BM yet. Patient denies any fever, chills, sweats, lightheadedness, dizziness, vision changes, CP, palpitations, edema, SOB, wheezing, cough, abdominal pain, nausea, vomiting, diarrhea, urinary symptoms, melena, numbness/tingling, weakness, muscle/joint pain, anxiety/depression, active bleeding, or new skin discoloration/changes. (Phuong Jerome ., ARLETTEC) Medications Current Inpatient Medications Medications (Trade) Dose Ordered Sig/Cheryl Route Start Time Stop Time Status Last Admin Dose Admin Acetaminophen (Tylenol Tab) 650 mg Q4H PRN PO 11/11/16 11:45 12/11/16 11:44 Magnesium Hydroxide (Milk Of Magnesia Susp) 30 ml Q6H PRN PO 11/11/16 11:45 12/11/16 11:44 Ondansetron HCl (Zofran Inj) 4 mg Q6H PRN IV 11/11/16 11:45 12/11/16 11:44 Ciprofloxacin/ Dextrose 400 mg/ Prmx 200 ml @ 100 mls/hr Q12@1000,2200 IV 11/11/16 22:00 11/20/16 23:59 11/15/16 09:32 100 MLS/HR Metronidazole 500 mg/Prmx 100 ml @ 100 mls/hr Q8@0400,1200,1999 IV 11/11/16 20:00 11/21/16 04:59 11/15/16 04:20 100 MLS/HR Potassium Chloride/Dextrose/ Sod Cl 1,000 ml @ 125 mls/hr Q8H IV 11/11/16 13:30 12/11/16 13:29 11/15/16 06:01 125 MLS/HR Methylprednisolone Sodium Succinate 40 mg/Syringe 0.64 ml @ 1.5 mls/min Q8@0400,1200,1999 IV 11/11/16 20:00 12/11/16 19:59 8/3/17 04:20 1.5 MLS/MIN Morphine Sulfate (MoRPHine SULFATE INJ) 1 mg Q3H PRN IV 11/11/16 14:30 11/25/16 14:29 Famotidine 20 mg/ Dextrose 102 ml @ 200 mls/hr Q12H IV 11/12/16 20:00 12/12/16 19:59 11/15/16 08:07 200 MLS/HR Enoxaparin Sodium (Lovenox Inj) 40 mg QAM SQ 11/13/16 09:00 12/13/16 08:59 11/15/16 08:12 40 MG Ioversol (Optiray 320) 100 ml UD PRN IV 11/15/16 05:45 11/19/16 05:44 Polyethylene (Miralax Powder Packet) 119 gm TODAY@1700 PO 11/15/16 17:00 11/15/16 17:01 Polyethylene (Miralax Powder Packet) 119 gm TODAY@2100 PO 11/15/16 21:00 11/15/16 21:01 Bisacodyl (Dulcolax Tab) 20 mg TODAY@1700 PO 11/15/16 17:00 11/15/16 20:00 (Phuong Jerome PA-C) Objective Vital Signs Date Time Temp Pulse Resp B/P (MAP) Pulse Ox O2 Delivery O2 Flow Rate FiO2 11/15/16 08:00 Room Air 11/15/16 07:16 37.1 76 18 148/62 (90) 97 Room Air 11/15/16 00:00 Room Air 11/14/16 23:08 36.9 57 18 154/92 (112) 97 Room Air 11/14/16 16:07 36.9 76 18 134/75 (94) 97 Room Air 11/14/16 16:00 Room Air 11/14/16 11:38 36.8 61 16 142/86 (104) 98 (Phuong Jerome PA-C) Physical Exam General Appearance: WD/WN, no apparent distress Eyes: normal inspection, PERRL ENT: hearing grossly normal Neck: supple Respiratory/Chest: lungs clear, no respiratory distress, no accessory muscle use Cardiovascular: regular rate, rhythm Abdomen: normal bowel sounds, non tender, soft Extremities: no pedal edema, no calf tenderness Neurologic/Psychiatric: alert, normal mood/affect, oriented x 3 Skin: normal color, warm/dry, no rash (Phuong Jerome ., PA-C) Assessment and Plan 51 y/o F c/o recurrent abdominal pain, n/v/d. X-ray showed ileus vs partial SBO noted on XR. recent colonoscopy in [place]. Partial SBO/Crohn's disease: - Admitted to med/surg - IV Flagyl + Vancomycin since 11/11 (last day of treatment 11/25) - IV Solu Medrol 40 mg q8 hrs - IV Morphine 1 mg q3 hrs PRN for pain control - NGT d/c'd on 11/13 -- Advanced diet to clear- tolerating well- advance to full clear on 11/14 per GI recommendations - IV NS + KCL @ 125 ml/hr until tolerating full diet - BCx- NGTD - Lyme disease- negative - GI consulted, appreciate recommendations -- Repeat CT scan on 11/15- Abnormal thickening within the distal ileum and proximal ascending colon/ cecum. This could be a result of the patient's inflammatory bowel disease. 4.4 x 3.3 cm heterogeneous soft tissue abnormality abutting the terminal ileum. This could represent phlegmon in the setting of the inflammatory bowel disease. However, these findings are also concerning for a soft tissue mass such as an adenocarcinoma or lymphoma. In addition, there are multiple scattered omental nodules measuring up to 1 cm which are highly suspicious for peritoneal carcinomatosis in the setting of a neoplastic process. -- Planning for colonoscopy on 11/16- bowel prep and NPO tonight -- Will need to be discharged on Pentasa, completion of cipro/flagyl x 2 weeks and steroid taper --- Prednisone 40 x 2 weeks, prednisone 20 x 1 week, prednisone 10 x 1 week, prednisone 5 x 1 week, prednisone 2.5 x 1 week -- Follow-up with Dr. Rowe regarding Pentasa vs biologic Hyperlipidemia: Lipitor 20 mg HS held OCP use: Holding at this time GI Prophylaxis: IV Pepcid DVT Prophylaxis: Lovenox Dispo: Discharge to home once medically stable- no discharge needs anticipated (Phuong Jerome ., PA-C) Attending Attestation: Pt seen/examined, chart reviewed, and care plan d/w MILLER Jerome. I agree w/ the cody components of her documentation. Despite +c. diff toxin she reports her stools are actually "better than they had been." Denies abd pain. Overall feels decent. VSS no fever gen - nad abd - soft, NT, ND, BS+, no HSM A/P: Suspected ew-onset Crohn's disease with ileitis. Abnormal CT today - Crohn's? Lymphoma? Carcinomatosis? I agree with GI that repeat colonoscopy is indicated. I reviewed her pathology report from [facility] and biopsy of terminal ileum was in fact incomplete/inconclusive (just showed inflammation with ulceration). Ileus/partial SBO - resolved. Phlegmon - clinically improved but radiographically still present on CT? C diff - vanco 125mg qid. Defer abx/steroid management to GI. c-scope in am. Zurdo Canales MD (Zurdo Canales MD)
[2016-11-15 14:53] VITALS: BP 153/89; PULSE 64; TEMP 36.8; O2SAT 98
[2016-11-15] MEDS: RASPBERRY SYRUP 5 ML UDP PO SCH ×2 (16:12→20:12)
[2016-11-15] MEDS: VANCOMYCIN HCL 125 MG/2.5ML SOLN PO SCH ×2 (16:12→20:12)
[2016-11-15] MEDS ORDERED: BISACODYL 5 MG TABEC PO SCH (17:00)
[2016-11-15] MEDS ORDERED: POLYETHYLENE (MIRALAX) 17 GM PACK PO SCH ×2 (17:00→21:00)
[2016-11-15 22:24] VITALS: BP 148/91; PULSE 55; TEMP 36.7; O2SAT 96
[2016-11-16] MEDS: METHYLPREDNISOLONE IV 40 MG in SYRINGE 0 ML IV SCH ×2 (04:05→13:58)
[2016-11-16] MEDS: METRONIDAZOLE / NSS 500 MG in PREMIXED NSS 100 ML IV SCH ×2 (04:05→13:51)
[2016-11-16] MEDS: D5W AND 1/2NSS + 20MEQ KCL 1,000 ML IV SCH ×3 (04:59→21:37)
[2016-11-16 07:09] LABS: HEMATOCRIT 40.5 % (37-47); MEAN CELL VOLUME 90.6 fL (80-100); MEAN CORPUSCULAR HEMOGLOBIN 31.3 pg (25-34); MEAN CORPUSCULAR HGB CONC 34.6 g/dl (32-36); MEAN PLATELET VOLUME 11.1 fL (7.4-10.4); PLATELET COUNT 201 K/uL (130-400); RED BLOOD COUNT 4.47 M/uL (4.2-5.4); WHITE BLOOD COUNT 5.17 K/uL (4.8-10.8)
[2016-11-16 07:14] VITALS: BP 151/87; PULSE 70; TEMP 36.9; O2SAT 96
[2016-11-16 07:34] LABS: CREATININE 0.86 mg/dl (0.60-1.20)
[2016-11-16] MEDS: VANCOMYCIN HCL 125 MG/2.5ML SOLN PO SCH ×4 (09:13→21:36)
[2016-11-16] MEDS: RASPBERRY SYRUP 5 ML UDP PO SCH ×4 (09:14→21:36)
[2016-11-16] MEDS: FAMOTIDINE IV INJ 20 MG in DEXTROSE 5% 100ML 100 ML IV SCH ×2 (10:02→19:53)
[2016-11-16] MEDS: CIPROFLOXACIN / D5W 400 MG in PREMIXED IN D5W 200 ML IV SCH (10:04)
[2016-11-16] MEDS: ENOXAPARIN 40 MG/0.4 ML SYR SQ SCH (10:04)
[2016-11-16 11:35] VITALS: BP 151/87; PULSE 70; TEMP 36.9; O2SAT 96
[2016-11-16] MEDS ORDERED: PROPOFOL IV EMULSION 10 MG/ML 20 ML VIAL IV ONE (12:41)
[2016-11-16] MEDS ORDERED: LIDOCAINE HCL 2% 2 ML VIAL (20MG/ML) ONE (12:41)
--- NOTE | 2016-11-16 12:48 | GI REPORT ---
Procedure Date: 11/16/2016 12:12 PM Procedure: Colonoscopy Indications: Abnormal CT of the GI tract Medicines: Monitored Anesthesia Care Complications: No immediate complications. Estimated blood loss: Minimal. Estimated Blood Loss: Estimated blood loss was minimal. Procedure: Pre-Anesthesia Assessment: - Prior to the procedure, a History and Physical was performed, and patient medications, allergies and sensitivities were reviewed. The patient's tolerance of previous anesthesia was reviewed. - The risks and benefits of the procedure and the sedation options and risks were discussed with the patient. All questions were answered and informed consent was obtained. - Patient identification and proposed procedure were verified prior to the procedure by the physician, the nurse and the fish dressing machine feeder. The procedure was verified in the procedure room. - Pre-procedure physical examination revealed no contraindications to sedation. - ASA Grade Assessment: II - A patient with mild systemic disease. - After reviewing the risks and benefits, the patient was deemed in satisfactory condition to undergo the procedure. - The anesthesia plan was to use monitored anesthesia care (MAC). - Immediately prior to administration of medications, the patient was re-assessed for adequacy to receive sedatives. - The heart rate, respiratory rate, oxygen saturations, blood pressure, adequacy of pulmonary ventilation, and response to care were monitored throughout the procedure. - The physical status of the patient was re-assessed after the procedure. After I obtained informed consent, the scope was passed under direct vision. Throughout the procedure, the patient's blood pressure, pulse, and oxygen saturations were monitored continuously. The scope was introduced through the anus and advanced to the ileocecal valve. The colonoscopy was performed without difficulty. The patient tolerated the procedure well. The quality of the bowel preparation was good. Findings: The perianal and digital rectal examinations were normal. Pertinent negatives include normal sphincter tone. Localized mild inflammation characterized by erythema and granularity was found in the cecum. Biopsies were taken with a cold forceps for histology. Estimated blood loss was minimal. Diffuse severe inflammation characterized by congestion (edema), erythema, granularity and deep ulcerations was found at the ileocecal valve / into the terminal ileum. I was not able to fully advance the endoscope into the ileum (was able to "keyhole" the valve). Biopsies were taken with a cold forceps for histology. Estimated blood loss was minimal. Normal mucosa was found in the rectum, in the sigmoid colon, in the descending colon, in the transverse colon and in the ascending colon. Biopsies were taken with a cold forceps for histology. Estimated blood loss was minimal. Internal hemorrhoids were found during retroflexion. The hemorrhoids were moderate. Impression: - Localized mild inflammation was found in the cecum. Biopsied. - Diffuse severe inflammation was found at the ileocecal valve. Biopsied. I'm not certain if this represents changes from inflammatory bowel disease or perhaps an underlying malignancy. - Normal mucosa in the rectum, in the sigmoid colon, in the descending colon, in the transverse colon and in the ascending colon. Biopsied. - Internal hemorrhoids. Recommendation: - Return patient to [facility] for ongoing care. - Await pathology results. - Continue present medications. Mackenzie Cook D.O. Mackenzie Cook, 11/16/2016 12:48:30 PM This report has been signed electronically. Note Initiated On: 11/16/2016 12:12 PM I attest to the content of the Intraoperative Record and orders documented therein, exceptions below
--- NOTE | 2016-11-16 13:12 | Anesthesiology Progress Note ---
Anesthesia Post Op Note Date & Time Nov 16, 2016 at 13:12 Vital Signs Pain Intensity: 0 Vital Signs Past 12 Hours Date Time Temp Pulse Resp B/P (MAP) Pulse Ox O2 Delivery O2 Flow Rate FiO2 11/16/16 13:01 62 24 149/94 (112) 98 Room Air 11/16/16 12:46 62 20 144/91 (108) 100 Room Air 11/16/16 11:52 36.9 82 20 161/100 (120) 98 Room Air 11/16/16 11:35 36.9 70 18 151/87 96 Room Air 11/16/16 10:41 Room Air 11/16/16 07:14 36.9 70 18 151/87 (108) 96 Room Air Notes Mental Status: alert / awake / arousable, participated in evaluation Pt Amnestic to Procedure: Yes Nausea / Vomiting: adequately controlled Pain: adequately controlled Airway Patency, RR, SpO2: stable & adequate BP & HR: stable & adequate Hydration State: stable & adequate Anesthetic Complications: no major complications apparent
[2016-11-16 13:29] VITALS: BP 153/90; PULSE 57; TEMP 37.2; O2SAT 98
--- NOTE | 2016-11-16 14:37 | Progress Note ---
Progress Note Date of Service Nov 16, 2016. (Gill Higgins CRNP) Progress Note GI quick note: Pt underwent colonoscopy by Dr. Cook, found to have inflammation on cecum and ileocecal valve area, otherwise normal exam. Bx done, path pending. She was doing better clinically, no n/v, abd pain, tolerating CL diet. - DC Cipro/Flagyl - Vancomycin 125mg QID x 14 days for Cdiff - Can DC steroid IV; taper Prednisone: 40mg daily x 2 weeks, 30mg daily x 1 week , 20mg daily x 1 week, 10mg daily x 1 week, 5mg daily x 1 week. - Should be ok for DC tomorrow; f/u in GI clinic. (Gill Higgins, JON) Patient underwent a repeat colonoscopy today, she has an inflammatory area at the ileocecal valve. This area could represent underlying bones disease or perhaps a malignancy. Recommendations Vancomycin 125 4 times a day for 14 days Discontinue Flagyl Discontinue vancomycin Prednisone 40 mg per day with taper as noted by Ms. Higgins We'll make arrangements to start the patient on Humira as an outpatient If feeling well tomorrow consider early discharge (Mackenzie Cook, DO)
[2016-11-16 14:44] VITALS: BP 141/84; PULSE 61; TEMP 36.7; O2SAT 98
--- NOTE | 2016-11-16 14:50 | Hospitalist Progress Note ---
Hospitalist Progress Note Date of Service Nov 16, 2016. (Phuong Jerome ., AKI) Subjective Pt evaluation today including: conversation w/ patient, physical exam, chart review, lab review, review of studies, review of inpatient medication list Voiding: no voiding problems, no incontinence Saw patient this AM prior to colonoscopy. Tolerated prep well. Tired due to little sleep from prep. No abdominal pain. Patient denies any fever, chills, sweats, lightheadedness, dizziness, vision changes, CP, palpitations, edema, SOB, wheezing, cough, abdominal pain, nausea, vomiting, urinary symptoms, melena, numbness/tingling, weakness, muscle/joint pain, anxiety/depression, active bleeding, or new skin discoloration/changes. (Phuong Jerome ., ARLETTEC) Medications Current Inpatient Medications Medications (Trade) Dose Ordered Sig/Cheryl Route Start Time Stop Time Status Last Admin Dose Admin Acetaminophen (Tylenol Tab) 650 mg Q4H PRN PO 11/11/16 11:45 12/11/16 11:44 Magnesium Hydroxide (Milk Of Magnesia Susp) 30 ml Q6H PRN PO 11/11/16 11:45 12/11/16 11:44 Ondansetron HCl (Zofran Inj) 4 mg Q6H PRN IV 11/11/16 11:45 12/11/16 11:44 Potassium Chloride/Dextrose/ Sod Cl 1,000 ml @ 125 mls/hr Q8H IV 11/11/16 13:30 12/11/16 13:29 11/16/16 13:57 125 MLS/HR Morphine Sulfate (MoRPHine SULFATE INJ) 1 mg Q3H PRN IV 11/11/16 14:30 11/25/16 14:29 Famotidine 20 mg/ Dextrose 102 ml @ 200 mls/hr Q12H IV 11/12/16 20:00 12/12/16 19:59 11/16/16 10:02 200 MLS/HR Enoxaparin Sodium (Lovenox Inj) 40 mg QAM SQ 11/13/16 09:00 12/13/16 08:59 11/16/16 10:04 40 MG Ioversol (Optiray 320) 100 ml UD PRN IV 11/15/16 05:45 11/19/16 05:44 Vancomycin HCl (Vancomycin Oral Soln) 125 mg QID PO 11/15/16 17:00 11/25/16 16:59 11/16/16 13:57 125 MG Raspberry (Raspberry Syrup 5ml Cup) 5 ml QID PO 11/15/16 17:00 11/29/16 16:59 11/16/16 13:57 5 ML Prednisone (PredniSONE TAB) 40 mg DAILY PO 11/17/16 09:00 12/17/16 08:59 UNV (Phuong Jerome PA-C) Objective Vital Signs Date Time Temp Pulse Resp B/P (MAP) Pulse Ox O2 Delivery O2 Flow Rate FiO2 11/16/16 13:29 37.2 57 18 153/90 (111) 98 Room Air 11/16/16 13:16 58 24 153/92 (112) 98 Room Air 11/16/16 13:01 62 24 149/94 (112) 98 Room Air 11/16/16 12:46 62 20 144/91 (108) 100 Room Air 11/16/16 11:52 36.9 82 20 161/100 (120) 98 Room Air 11/16/16 11:35 36.9 70 18 151/87 96 Room Air 11/16/16 10:41 Room Air 11/16/16 07:14 36.9 70 18 151/87 (108) 96 Room Air 11/16/16 00:00 Room Air 11/15/16 22:24 36.7 55 18 148/91 (110) 96 Room Air 11/15/16 20:00 Room Air 11/15/16 16:00 Room Air 11/15/16 14:53 36.8 64 18 153/89 (110) 98 Room Air (Phuong Jerome PA-C) Physical Exam General Appearance: WD/WN, no apparent distress Eyes: normal inspection, PERRL ENT: hearing grossly normal Neck: supple Respiratory/Chest: lungs clear, no respiratory distress, no accessory muscle use Cardiovascular: regular rate, rhythm Abdomen: normal bowel sounds, non tender, soft Extremities: no pedal edema, no calf tenderness Neurologic/Psychiatric: alert, normal mood/affect, oriented x 3 Skin: normal color, warm/dry, no rash (Phuong Jerome PA-C) Laboratory Results Last 24 Hours Test 11/16/16 06:57 11/16/16 12:05 White Blood Count 5.17 K/uL Red Blood Count 4.47 M/uL Hemoglobin 14.0 g/dL Hematocrit 40.5 % Mean Corpuscular Volume 90.6 fL Mean Corpuscular Hemoglobin 31.3 pg Mean Corpuscular Hemoglobin Concent 34.6 g/dl RDW Standard Deviation 42.7 fL RDW Coefficient of Variation 12.8 % Platelet Count 201 K/uL Mean Platelet Volume 11.1 fL Creatinine 0.86 mg/dl Est Creatinine Clear Calc Drug Dose 84.7 ml/min Estimated GFR () 91.3 Estimated GFR (Non- 78.8 (Phuong Jerome, AKI) Assessment and Plan 51 y/o F c/o recurrent abdominal pain, n/v/d. X-ray showed ileus vs partial SBO noted on XR. recent colonoscopy in [place]. Partial SBO/Crohn's disease: - Admitted to med/surg - IV Flagyl + Cipro since 11/11 (last day of treatment 11/25) -- Vancomycin 125 mg QID x 14 days (last day of treatment (11/29) -- d/c'd IV Flagyl + Cipro on 11/16 - IV Solu Medrol 40 mg q8 hrs- transitioned to PO Prednisone on 11/17 - IV Morphine 1 mg q3 hrs PRN for pain control - NGT d/c'd on 11/13 -- Advanced diet as tolerated - IV NS + KCL @ 125 ml/hr until tolerating full diet - BCx- NGTD - Lyme disease- negative - GI consulted, appreciate recommendations -- Repeat CT scan on 11/15- Abnormal thickening within the distal ileum and proximal ascending colon/ cecum. This could be a result of the patient's inflammatory bowel disease. 4.4 x 3.3 cm heterogeneous soft tissue abnormality abutting the terminal ileum. This could represent phlegmon in the setting of the inflammatory bowel disease. However, these findings are also concerning for a soft tissue mass such as an adenocarcinoma or lymphoma. In addition, there are multiple scattered omental nodules measuring up to 1 cm which are highly suspicious for peritoneal carcinomatosis in the setting of a neoplastic process. -- Colonoscopy on 11/16- - Localized mild inflammation was found in the cecum. Biopsied. - Diffuse severe inflammation was found at the ileocecal valve. Biopsied. ?changes from inflammatory bowel disease or perhaps an underlying malignancy. - Normal mucosa in the rectum, in the sigmoid colon, in the descending colon, in the transverse colon and in the ascending colon. Biopsied. - Internal hemorrhoids. -- Will need to be discharged on Pentasa, completion of Vanco x 2 weeks and Steroid taper --- Prednisone 40 x 2 weeks (started 11/17), prednisone 20 x 1 week, prednisone 10 x 1 week, prednisone 5 x 1 week, prednisone 2.5 x 1 week -- Follow-up with Dr. Rowe regarding Pentasa vs biologic Hyperlipidemia: Lipitor 20 mg HS held OCP use: Holding at this time GI Prophylaxis: IV Pepcid DVT Prophylaxis: Lovenox Dispo: Discharge to home once medically stable, likely tomorrow (11/17)- no discharge needs anticipated (Phuong Jerome ., PA-C) Attending Attestation: Pt seen/examined, chart reviewed, and care plan d/w MILLER Jerome. I agree w/ the cody components of her documentation. I saw the patient post-colonoscopy. Feeling well. No abd pain, nausea, emesis. Tolerating diet. VSS no fever gen - nad abd - soft, NT, ND, BS+, no HSM A/P: Suspected new-onset Crohn's disease with ileitis - s/p colonoscopy today with considerable ileal inflammation - biopsies pending. Will remain on prednisone taper, pentasa at discharge with f/u with Dr. Cook. Abnormal CT today - Crohn's? Lymphoma? Carcinomatosis? await ileal biopsies. C diff - vanco 125mg qid x 2 weeks; cipro/flagyl d/c by GI. Check nutritional labs in am. anticipate d/c in am if stable. Zurdo Canales MD (Zurdo Canales MD)
[2016-11-16 23:49] VITALS: BP 144/83; PULSE 56; TEMP 36.9; O2SAT 96
[2016-11-17] MEDS: D5W AND 1/2NSS + 20MEQ KCL 1,000 ML IV SCH (05:35)
[2016-11-17 07:02] VITALS: BP 154/89; PULSE 62; TEMP 36.8; O2SAT 98
[2016-11-17 08:00] VITALS: O2SAT 98
[2016-11-17 08:11] LABS: BUN/CREATININE RATIO 12.8 (10-20); CALCIUM 8.5 mg/dl (8.5-10.1); CREATININE 0.83 mg/dl (0.60-1.20); POTASSIUM 3.9 mmol/L (3.5-5.1)
[2016-11-17 08:19] LABS: FERRITIN 72.5 ng/ml (8.0-388.0)
[2016-11-17] MEDS: VANCOMYCIN HCL 125 MG/2.5ML SOLN PO SCH ×3 (08:50→16:51)
[2016-11-17] MEDS: ENOXAPARIN 40 MG/0.4 ML SYR SQ SCH (08:50)
[2016-11-17] MEDS: RASPBERRY SYRUP 5 ML UDP PO SCH ×3 (08:50→16:54)
[2016-11-17] MEDS ORDERED: CHOLECALCIFEROL 1000 INTER.UNIT TAB PO SCH (09:00)
[2016-11-17] MEDS ORDERED: PRED10TA PO (14:56)
[2016-11-17] MEDS ORDERED: DICY10CA55 PO (14:56)
[2016-11-17] MEDS ORDERED: VANC5CAP PO (14:56)
[2016-11-17] MEDS ORDERED: VTMD1000 PO (14:56)
--- NOTE | 2016-11-17 15:07 | Discharge Instructions ---
Discharge Instructions Date of Service Nov 17, 2016. Admission Reason for Admission: Abdominal Pain Discharge Discharge Diagnosis / Problem: abdominal pain due to ileitis; c diff infection Discharge Goals Goal(s): Improve disease control, Improve nutritional status, Learn about illness, Diagnostic testing, Therapeutic intervention Activity Recommendations Activity Limitations: as noted below For the next 2-3 days please "take it easy" - no going to the gym, no heavy exertional outdoor activities (yardwork, etc), no heavy indoor chores, etc. Light walks are fine. . Instructions / Follow-Up Instructions / Follow-Up From Dr. Canales - 1. c. diff infection & treatment - * take vancomycin capsules 125mg 4 times a day for 12 more days; start this TODAY * use a separate bathroom then other household measures for the next 2 weeks * wash all linens, bedsheets, towels, underwear, etc - if possible - in hot water with bleach * use bleach wipes or bleach liquid to clean bathrooms, countertops, etc; alcohol sanitizers do NOT kill c. diff ("PURELL") * even if the stools normalize you can be contagious for several weeks longer; the period of worst contagiousness is while you have diarrhea * good handwashing for the next few weeks; use soap and hot water for 20 seconds minimum; this goes for all household members * don't share utensils as well 2. suspected crohn's disease - * continue your pentasa * continue your prednisone taper - start this TOMORROW * take as follows - * 4 tabs by mouth daily x 14 days, then - * 3 tabs by mouth daily x 7 days, then - * 2 tabs by mouth daily x 7 days, then - * 1 tab daily x 7 days, then - * 1/2 tab daily x 7 days * take with food * of course Dr. Cook or one of the other GI doctors may alter this regimen * prednisone will increase your appetite and possibly cause weight gain/fluid retention 3. Please see Dr. Cook within 1 week to discuss your biopsy results and to ensure you are recovering well. 4. See Dr. Diehl's office on Saturday or Saturday of this coming week. 5. Diet - * follow a full liquid diet for the remainder of today - this includes dairy products (milk, yogurt, cream-based soup, etc) * tomorrow gradually introduce soft, low fiber, bland solid foods * avoid excessive amounts of fried food, spicy foods, and caffeinated beverages over the next 1-2 weeks as you recover 6. Return to [facility] if - * your diarrhea worsens rather than improves * you develop severe abdominal pain * you have vomiting and can't keep nourishment down * you have fever over 100.5 degrees * you see large amounts of blood or mucous in your stools * any concern of dehydration 7. Bentyl (dicyclomine) - rather than taking this scheduled just take this as needed. 8. You may take [id number] pepcid 20mg twice daily OR zantac 150mg twice daily to protect your stomach again the effects of prednisone as prednisone can cause stomach upset, irritation, etc. Current Hospital Diet Patient's current hospital diet: Full Liquid Diet Discharge Diet Recommended Diet: Full Liquid Diet Procedures Procedures Performed: Colonoscopy with biopsy CAT scan of abdomen and pelvis showing inflammation of the ileum (last portion of the small intestine) Pending Studies Studies pending at discharge: yes List of pending studies: biopsy of the ileum Medical Emergencies . Who to Call and When: Medical Emergencies: If at any time you feel your situation is an emergency, please call 911 immediately. . Non-Emergent Contact Non-Emergency issues call your: Funeral Director/Embalmer Call Non-Emergent contact if: temperature is above 100.5, your pain is not controlled, your pain is worsening, your pain is unusual for you, your pain is concerning you, you have any medication questions . . "Provider Documentation" section prepared by Zurdo Canales. . VTE Core Measure Inpt VTE Proph given/why not?: Contraindicated
[2016-11-17 16:24] VITALS: BP 154/89; PULSE 62; TEMP 36.8; O2SAT 98
[2016-11-19 15:48] LABS: O&P GIARDIA AG NOT DETECTED (NOT DETECTED)
--- NOTE | 2016-11-20 22:29 | Discharge Summary ---
Discharge Summary Date of Service Nov 20, 2016. Discharge Summary Admission Date: Nov 11, 2016 at 11:45 Discharge Date: Nov 17, 2016 Discharge Disposition: Home Principal Diagnosis: severe ileitis - etiology uncertain, biopsies pending Problems/Secondary Diagnoses: 1. partial SBO due to severe ileitis - resolved 2. c diff enteritis 3. hyperlipidemia 4. vitamin D insufficiency 5. elevated blood pressure without diagnosis of HTN Immunizations: Have You Had Influenza Vaccine: Yes Influenza Vaccine Date: Feb 15, 2010 History of Tetanus Vaccine?: No History of Pneumococcal: No History of Hepatitis B Vaccine: No Procedures: 1. CT abd/pelvis - IMPRESSION: Abnormal thickening within the distal ileum and proximal ascending colon/cecum. This could be a result of the patient's inflammatory bowel disease. There is also a 4.4 x 3.3 cm heterogeneous soft tissue abnormality abutting the terminal ileum. This could represent phlegmon in the setting of the inflammatory bowel disease. However, these findings are also concerning for a soft tissue mass such as an adenocarcinoma or lymphoma. In addition, there are multiple scattered omental nodules measuring up to 1 cm which are highly suspicious for peritoneal carcinomatosis in the setting of a neoplastic process. Gastroenterology and/or surgical consultation is recommended for further evaluation. 2. colonoscopy - Mackenzie Cook DO - Findings: The perianal and digital rectal examinations were normal. Pertinent negatives include normal sphincter tone. Localized mild inflammation characterized by erythema and granularity was found in the cecum. Biopsies were taken with a cold forceps for histology. Estimated blood loss was minimal. Diffuse severe inflammation characterized by congestion (edema), erythema, granularity and deep ulcerations was found at the ileocecal valve / into the terminal ileum. I was not able to fully advance the endoscope into the ileum (was able to "keyhole" the valve). Biopsies were taken with a cold forceps for histology. Estimated blood loss was minimal. Normal mucosa was found in the rectum, in the sigmoid colon, in the descending colon, in the transverse colon and in the ascending colon. Biopsies were taken with a cold forceps for histology. Estimated blood loss was minimal. Internal hemorrhoids were found during retroflexion. The hemorrhoids were moderate. Consultations: gastroenterology - Mackenzie Cook DO Medication Reconciliation New Medications: Vancomycin Hcl (Vancomycin) 125 Mg Cap 125 MG PO QID for 12 Days, #48 CAP 0 Refills Cholecalciferol (Vitamin D3) 1,000 Inter.unit Tab 2000 INTER.UNIT PO QAM, #60 TAB 11 Refills purchase [id number] Changed Medications: Dicyclomine Hcl (Bentyl) 10 Mg Cap 10 MG PO BID PRN for stomach cramps, gas, #1 CAP (Medication details modified) Prednisone (Prednisone) 10 Mg Tab 10 MG PO DIRECTED, #105 TABS 0 Refills (Changed from: 0 ; UD; 1; Refills: ; STERAPRED 10MG 12 DAY 1ST DAY WAS 11/10/16 4 TABS) take as follows: 4 tabs daily x 2 weeks, then 3 tabs daily x 1 week, then 2 tabs daily x 1 week, then 1 tab daily x 1 week, then 1/2 tab daily x 1 week. Take with food. Continued Medications: Atorvastatin (Lipitor) 20 Mg Tab 20 MG PO HS, TAB Control Pills ( Control Pills) Tab 1 TAB PO DAILY [place] Mesalamine Cont Rel (Pentasa) 250 Mg Caper 1000 MG PO QID, CAP 4 CAPS 4 TIMES A DAY Referrals At Discharge Follow up Referrals: Continuing Education Director Referral - Within 1 Week with Mackenzie Cook, DO Discharge Exam Physical Exam: General Appearance: WD/WN, no apparent distress ENT: pharynx normal Neck: no JVD Respiratory/Chest: lungs clear, no respiratory distress, no accessory muscle use Cardiovascular: regular rate, rhythm, no gallop, no murmur, normal peripheral pulses Abdomen / GI: normal bowel sounds, non tender, soft, no organomegaly Extremities: no pedal edema Neurologic/Psychiatric: alert, oriented x 3 Skin: no rash Hospital Course HISTORY OF PRESENT ILLNESS: 51yo female who presented with abdominal pain, nausea, vomiting, and diarrhea. Her history goes back to late August 2016 when she had been experiencing abdominal pain. She was seen by her PCP's office and underwent a pelvic ultrasound that was normal. Retrospectively she now remembers having some changes in her stools. Her abdominal pain largely resolved over the next few weeks. Then, while traveling with her family in [place], she was admitted to a hospital near [place] on 10/25/16. She states she was "deathly ill" with abdominal pain , nausea, emesis, and diarrhea with inability to tolerate PO. She underwent a coloscopy which showed terminal ileitis and she was given a working diagnosis of Crohn's disease. Upon return to [place] she was still having mild abdominal symptoms and established care with Dr. Eda Rowe with [facility]. She underwent an outpatient CT abd/pelvis at [facility] and by report this showed ongoing ileitis with possible phlegmon. She was started on antibiotics as well as pentasa. Upon ER presentation at [facility] she admitted to abdominal bloating, abdominal pain, nausea, emesis, and some diarrhea. An NG tube was placed due to concern of partial SBO and ongoing emesis. Nausea/emesis resolved after NG tube decompression. HOSPITAL COURSE: The patient's pSBO/ileus resolved with conservative measures including NG tube decompression, IVF, IV antibiotics, and bowel rest. Following discontinuation of the NG tube she was resumed on a clear liquid diet. Her abdominal pain and emesis did not return. She was seen in consult by [facility] who recommended a repeat abdominal/ pelvic CT in light of the recent findings of possible phlegmon on outpatient CT. Unfortunately the CT showed findings that were quite worrisome for other processes beyond inflammatory bowel including malignancy (see full report above) . Records from her hospital stay in [place] were reviewed and the biopsy of the ileum from her colonoscopy there was incomplete/nondiagnostic. Therefore, Dr. Mackenzie Cook recommended a repeat colonoscopy with repeat biopsies. Colonoscopy by Dr. Cook demonstrated severe inflammation in the ileum. The colon itself was entirely normal. At time of discharge all biopsies were pending. Ms. Pendleton will continue on pentasa and prednisone at time of discharge for her working diagnosis of Crohn's disease. She was counseled that her biopsy results, however, could change her diagnosis and/or treatment plan. She voiced understanding. At discharge she was tolerating a full liquids diet without nausea, emesis or abdominal pain. She was counseled on diet advancement at home. Her stay was complicated by c. diff enteritis and she will complete a course of oral vancomycin for such. Follow-up with her PCP and [facility] were recommended for the week after discharge. Total Time Spent: Greater than 30 minutes This includes examination of the patient, discharge planning, medication reconciliation, and communication with other providers. Discharge Instructions Please refer to the electronic Patient Visit Report (Discharge Instructions) for additional information. Follow-Up 1. see Dr. Diehl, PCP, within 5 days 2. see [facility], within 1 week Additional Copies To Mackenzie Cook DO; Olegario Diehl M.D.
--- NOTE | 2016-11-23 07:32 | EDITING REQUIRED CODING QUERY ---
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 Please assist us with the question(s) below: Please review the Pathology report and please document any relevant diagnosis(es) below: Diagnosis(es): Poorly differentiated adenocarcinoma, signet ring cell type Thank you Dorene Guerrero
[2016-11-24 11:48] LABS: CRYPTOSPORIDIUM AG TC 37213 NOT DETECTED (NOT DETECTED); ISOSPORA+CYCLOSPORA NOT DETECTED (NOT DETECTED); O&P SOURCE OTHER-STOOL
== END 2016-11-17 17:33 | disposition home or self-care (01) | DRG 375 ==
LOC: C.EDB 09:21 → C.MED 11:45 → ENRESERV 12:17 → C.MS2W 11-14 19:50
PROVIDERS: ADMIT Family Medicine; ATTEND Internal Medicine
PROC: 0DBC8ZX Excision of Ileocecal Valve, Via Natural or Artificial Opening Endoscopic, Diagnostic (ICD-10-PCS; principal; 2016-11-16 11:40)
PROC: 0DBE8ZX Excision of Large Intestine, Via Natural or Artificial Opening Endoscopic, Diagnostic (ICD-10-PCS; principal; 2016-11-16 11:40)
PROC: 0DBH8ZX Excision of Cecum, Via Natural or Artificial Opening Endoscopic, Diagnostic (ICD-10-PCS; principal; 2016-11-16 11:40)
DX: C17.2 Malignant neoplasm of ileum (principal); K50.914 Crohn's disease, unspecified, with abscess; K50.912 Crohn's disease, unspecified, with intestinal obstruction; B96.89 Other specified bacterial agents as the cause of diseases classified elsewhere; K64.8 Other hemorrhoids; E78.5 Hyperlipidemia, unspecified; R03.0 Elevated blood-pressure reading, without diagnosis of hypertension; E55.9 Vitamin D deficiency, unspecified; Z90.49 Acquired absence of other specified parts of digestive tract; Z79.3 Long term (current) use of hormonal contraceptives; Z79.899 Other long term (current) drug therapy

== ENCOUNTER 2016-11-21 17:58 | Inpatient (IN) | payer OTHER ==
[~2016-11-21] VITALS: Ht 175.3 cm; Wt 78.0 kg
[~2016-11-21 17:58] MED LIST changes: -AGMUNK; +ATOR-54 PO; +DICY10CA55 PO; -LRTUNK; +PNT250 PO; +PRED10TA PO; +VANC5CAP PO; +VTMD1000 PO
[2016-11-21] MEDS ORDERED: SODIUM CHLORIDE 0.9% 1000ML 1,000 ML IV STA ×2 (18:09)
[2016-11-21 18:29] LABS: BASO % 0.1 %; BASO ABS # 0.01 K/uL (0-0.2); COMPLETE YES; EOS % 0.1 %; HEMATOCRIT 47.5 % (37-47); IG% 0.5 %; LYMPH % 8.1 %; MEAN CELL VOLUME 87.6 fL (80-100); MEAN CORPUSCULAR HEMOGLOBIN 31.9 pg (25-34); MEAN CORPUSCULAR HGB CONC 36.4 g/dl (32-36); MEAN PLATELET VOLUME 10.8 fL (7.4-10.4); MONO % 8.1 %; NEUT % 83.1 %; PLATELET COUNT 258 K/uL (130-400); RED BLOOD COUNT 5.42 M/uL (4.2-5.4); WHITE BLOOD COUNT 14.77 K/uL (4.8-10.8)
[2016-11-21 18:46] LABS: BUN/CREATININE RATIO 16.2 (10-20); CALCIUM 9.1 mg/dl (8.5-10.1); CREATININE 0.93 mg/dl (0.60-1.20); POTASSIUM 3.7 mmol/L (3.5-5.1)
[2016-11-21] MEDS ORDERED: HYDROmorphone INJ 1 MG/ML SYR IV STA ×2 (18:50→22:04)
[2016-11-21] MEDS ORDERED: ONDANSETRON 8 MG/54 ML D5W IV ONE (19:00)
--- NOTE | 2016-11-21 20:58 | DIAGNOSTIC IMAGING REPORT ---
CT SCAN OF THE ABDOMEN AND PELVIS WITHOUT CONTRAST CLINICAL HISTORY: Generalized abdominal pain COMPARISON STUDY: 11/15/2016 TECHNIQUE: CT scan of the abdomen and pelvis was performed from the lung bases to the proximal femurs. Images are reviewed in the axial, sagittal, and coronal planes. IV contrast was not administered for this examination. A dose lowering technique was utilized adhering to the principles of ALARA. CT DOSE: 576.99 mGycm FINDINGS: Lower chest: The heart is normal in size and configuration, without pericardial effusion. The lung bases and pleural spaces are clear. Liver: The unenhanced liver is normal in size, contour, and attenuation. There is no intrahepatic biliary ductal dilatation. There is trace perihepatic fluid Gallbladder: Unremarkable. Spleen: Normal in size and attenuation. There is trace perisplenic fluid. Pancreas: Unremarkable. Adrenal glands: Unremarkable. Kidneys: No renal, ureteral, or bladder calculi are visualized. Bowel: There is a 4.5 cm soft tissue mass at the level of the terminal ileum/ileocecal valve. It is not possible to determine whether this is inflammatory or neoplastic. This results in a small bowel obstruction. There is mild mesenteric edema. There is minimal ascites. Peritoneum: There is minimal ascites. No free intraperitoneal air is visualized. There are scattered peritoneal nodules. Carcinomatosis must be considered. Vasculature: The abdominal aorta is normal in course and caliber. Adenopathy: There are small pericecal lymph nodes which could be pathologic. Pelvic viscera: There is a suspected exophytic uterine fibroid arising from the fundus. Skeletal structures: No destructive osseous lesions are seen. IMPRESSION: 1. Interval development of a distal small bowel obstruction. There is mild associated mesenteric edema and minimal ascites 2. 4.5 cm soft tissue mass at the level of the terminal ileum/ileocecal valve. This is the apparent etiology of the small bowel obstruction. It is not possible to determine with this is inflammatory or neoplastic 3. Scattered small peritoneal nodules. Carcinomatosis must be considered. Electronically signed by: Baldo Ritter M.D. 11/21/2016 8:57 PM Dictated Date/Time: 11/21/2016 8:49 PM
[2016-11-21 22:05] VITALS: O2SAT 98
--- NOTE | 2016-11-21 22:20 | History and Physical ---
History & Physical Date & Time of Service: Nov 21, 2016 at 22:20 Chief Complaint: Stomach Pain Primary Care Physician: Olegario Diehl M.D. History of Present Illness Source: patient, spouse Mrs Pendleton is a 51-year-old woman who has had about 3 weeks the left lower quadrant abdominal pain. She was recently discharged about 5 days ago, after an admission for colitis, which was thought to be Crohn's disease, and bowel obstruction due to a mass. Her course was complicated by developing C. difficile colitis as well. She reports severe left lower quadrant pain. 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 She is aware of the diagnosis, and is here to get the tumor removed as quickly as possible. She reports her pain is slightly better after IV Dilaudid. She reports the pain is very crampy, and associated with vomiting which she did 3 times earlier today. She has not felt nauseous or vomited since arriving to the ED. She does report weight loss of about 30 pounds in the last few months. Past Medical/Surgical History PMhx: Abdominal pain x 3 weeks C Diff colitis PSHx: Appendectomy Family History No pertinent family history. Social History Smoking Status: Never Smoker Smokeless Tobacco Use: No Alcohol Use: none Drug Use: none Marital Status: Housing status: lives with family Occupational Status: employed Immunizations History of Influenza Vaccine: Yes Influenza Vaccine Date: Feb 15, 2010 History of Tetanus Vaccine?: No History of Pneumococcal: No History of Hepatitis B Vaccine: No Multi-Drug Resistant Organisms History of MDRO: No Allergies Coded Allergies: No Known Allergies (Unverified , 11/11/16) Home Medications Scheduled Atorvastatin (Lipitor), 20 MG PO HS Control Pills ( Control Pills), 1 TAB PO DAILY Cholecalciferol (Vitamin D3), 2,000 INTER.UNIT PO QAM Vancomycin Hcl (Vancomycin), 125 MG PO QID Scheduled PRN Dicyclomine Hcl (Bentyl), 10 MG PO BID PRN for stomach cramps, gas Review of Systems See HPI for pertinent positives & negatives. A total of 10 systems reviewed and were otherwise negative. Physical Exam Vital Signs Date Time Temp Pulse Resp B/P (MAP) Pulse Ox O2 Delivery O2 Flow Rate FiO2 11/21/16 22:17 99 11/21/16 21:03 74 20 144/93 95 Room Air 11/21/16 19:08 86 18 147/86 95 Room Air 11/21/16 18:30 86 11/21/16 18:01 36.6 117 20 126/88 97 Room Air General Appearance: WD/WN, + mild distress Head: normocephalic, atraumatic Eyes: normal inspection ENT: normal ENT inspection, hearing grossly normal Neck: supple, no JVD Respiratory/Chest: lungs clear, normal breath sounds, no respiratory distress Cardiovascular: regular rate, rhythm, no murmur, normal peripheral pulses Abdomen/GI: normal bowel sounds, soft, + tenderness (LLQ) Back: normal inspection, no CVA tenderness, no muscle spasm Extremities/Musculoskelatal: no calf tenderness, no pedal edema Neurologic/Psych: no motor/sensory deficits, alert, normal mood/affect, oriented x 3 Skin: no rash Diagnostics Laboratory Results Results Past 24 Hours Test 11/21/16 18:20 Range/Units White Blood Count 14.77 4.8-10.8 K/uL Red Blood Count 5.42 4.2-5.4 M/uL Hemoglobin 17.3 12.0-16.0 g/dL Hematocrit 47.5 37-47 % Mean Corpuscular Volume 87.6 80-100 fL Mean Corpuscular Hemoglobin 31.9 25-34 pg Mean Corpuscular Hemoglobin Concent 36.4 32-36 g/dl Platelet Count 258 130-400 K/uL Mean Platelet Volume 10.8 7.4-10.4 fL Neutrophils (%) (Auto) 83.1 % Lymphocytes (%) (Auto) 8.1 % Monocytes (%) (Auto) 8.1 % Eosinophils (%) (Auto) 0.1 % Basophils (%) (Auto) 0.1 % Neutrophils # (Auto) 12.27 1.4-6.5 K/uL Lymphocytes # (Auto) 1.20 1.2-3.4 K/uL Monocytes # (Auto) 1.20 0.11-0.59 K/uL Eosinophils # (Auto) 0.02 0-0.5 K/uL Basophils # (Auto) 0.01 0-0.2 K/uL RDW Standard Deviation 41.9 36.4-46.3 fL RDW Coefficient of Variation 13.0 11.5-14.5 % Immature Granulocyte % (Auto) 0.5 % Immature Granulocyte # (Auto) 0.07 0.00-0.02 K/uL Sodium Level 134 136-145 mmol/L Potassium Level 3.7 3.5-5.1 mmol/L Chloride Level 100 98-107 mmol/L Carbon Dioxide Level 23 21-32 mmol/L Anion Gap 11.0 3-11 mmol/L Blood Urea Nitrogen 15 7-18 mg/dl Creatinine 0.93 0.60-1.20 mg/dl Est Creatinine Clear Calc Drug Dose 75.7 ml/min Estimated GFR () 83.1 Estimated GFR (Non- 71.7 BUN/Creatinine Ratio 16.2 10-20 Random Glucose 147 70-99 mg/dl Calcium Level 9.1 8.5-10.1 mg/dl Total Bilirubin 2.2 0.2-1 mg/dl Direct Bilirubin 0.5 0-0.2 mg/dl Aspartate Amino Transf (AST/SGOT) 18 15-37 U/L Alanine Aminotransferase (ALT/SGPT) 54 12-78 U/L Alkaline Phosphatase 41 45-117 U/L Total Protein 7.1 6.4-8.2 gm/dl Albumin 3.6 3.4-5.0 gm/dl Lipase 252 73-393 U/L Diagnostic Radiology IMPRESSION: 1. Interval development of a distal small bowel obstruction. There is mild associated mesenteric edema and minimal ascites 2. 4.5 cm soft tissue mass at the level of the terminal ileum/ileocecal valve. This is the apparent etiology of the small bowel obstruction. It is not possible to determine with this is inflammatory or neoplastic 3. Scattered small peritoneal nodules. Carcinomatosis must be considered. Impression Assessment and Plan 51 yo F with abdominal pain and distal small bowel obstruction, likely due to adenocarcinoma mass within colon. 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 HEENT--PERRL, EOMI, mucous membranes and oropharynx dry. Neck--supple, no JVD or bruits, thyroid normal, trachea midline, no adenopathy. Heart--normal S1 and S2, no extra beats, no murmurs, rubs or gallops. Lungs--clear bilaterally with good air movement, no respiratory distress, no accessory muscle use. Abdomen--normal bowel sounds and soft, tender across lower abdomen pelvic area. Nondistended. No hernias or masses, no organomegaly. Extremities--no cyanosis, clubbing or edema. There are good distal pulses b/l. Dermatologic--normal skin turgor, normal color, warm and dry, no abnormal lymph nodes, no rash. Neurologic--cranial nerves II through XII grossly intact, motor and sensory examination normal. Rheumatologic--normal range of motion, nontender, muscles and joints. Psychiatric--normal affect. Assessment and Plan: 1. Small bowel obstruction secondary to 4.5 cm soft tissue mass at the ileocecal valve junction/adenocarcinoma, likely Johnson Syndrome--patient be admitted to the medical surgical floor. Nothing by mouth except medications. IV fluids for rehydration. Consult Dr. Cerna from general surgery who she had an appointment with tomorrow. Consult Dr. Cook from gastroenterology was seen her during last hospitalization last week. Zosyn 3.375 mg IV every 6 hours. Continue vancomycin by mouth for C. difficile colitis. Level of Care Med/Surg Advanced Directives Existing Advance Directive: No Existing Living Will: No Existing Power of Casket Trimmer: No Resuscitation Status FULL RESUSCITATION VTE Prophylaxis VTE Risk Assessment Done? Y/N: Yes Risk Level: Moderate Given or contraindicated: SCD's Additional Copies To Olegario Diehl M.D. Resident Tracking Resident Involvement: Resident Care Provided Care Provided: Adult Hospital Medicine
[2016-11-21 22:29] LABS: URINE APPEARANCE CLEAR (CLEAR); URINE COLOR ORANGE; URINE EPITHELIAL CELL AUTO >30 /lpf (0-5); URINE NITRITE POS (NEG); URINE SPECIFIC GRAVITY 1.028 (1.000-1.030); UROBILINOGEN NEG (NEG); ZZUR CULT IF INDIC CLEAN CATCH NO
[2016-11-21] MEDS ORDERED: RASPBERRY SYRUP 5 ML UDP PO SCH (22:30)
[2016-11-21] MEDS ORDERED: ONDANSETRON INJ 2 MG/ML 2 ML VIAL IV PRN (22:30)
--- NOTE | 2016-11-21 22:45 | DIAGNOSTIC IMAGING REPORT ---
CHEST ONE VIEW PORTABLE CLINICAL HISTORY: Preoperative chest SMALL BOWEL OBSTRUCTION COMPARISON STUDY: 11/11/2016 FINDINGS: The cardiac and mediastinal contours are normal. There is no evidence of focal pulmonary consolidation. There is no evidence of failure. No pleural effusions are visualized.[ IMPRESSION: No active disease in the chest. Electronically signed by: Baldo Ritter M.D. 11/21/2016 10:44 PM Dictated Date/Time: 11/21/2016 10:43 PM
[2016-11-21 22:59] VITALS: Ht 175.3 cm; Wt 78.0 kg
[2016-11-21 23:01] LABS: MANUAL MICROSCOPIC REQUIRED? NO; REVIEW REQ? NO; URINE BILIRUBIN 1+ (NEG)
[2016-11-21 23:15] VITALS: BP 119/79; PULSE 80; TEMP 36.9; O2SAT 96
[2016-11-21] MEDS: LACTATED RINGER'S 1000ML 1,000 ML IV SCH (23:37)
[2016-11-22] MEDS: VANCOMYCIN HCL 125 MG/2.5ML SOLN PO SCH ×5 (00:05→20:36)
--- NOTE | 2016-11-22 00:57 | EMERGENCY ROOM VISIT NOTE ---
History Report prepared by Faith: Suzie Lino Under the Supervision of: Dr. Julián Arias M.D. First contact with patient: 18:09 Chief Complaint: ABDOMINAL PAIN Stated Complaint: STOMACH PAIN Nursing Triage Summary: pt was a pt here last week, d.c on sat. was dx with cdiff with that admission, is curently on vanco. pt was notified today that she has a cancerous tumor near her ileum. nausea several weeks, vomiting today. History of Present Illness The patient is a 51 year old female who presents to the Emergency Room with complaints of constant LLQ spasmic abdominal pain beginning today. The patient states that she was seen here 1 week ago for Crohn's evaluation and C-Diff and was discharged 4 days ago. She notes that they found a cancerous growth in the ileum that they initially diagnosed as Crohn's but later realized it was cancerous. She complains of nausea, weakness, diarrhea, chills, and 4 episodes of vomiting today. The patient states that she had similar symptoms when she was seen here 1 week ago but her abdominal pain has worsened again today. Pt denies LOC, headache, fevers, diaphoresis, visual changes, neck pain, chest pain , breathing difficulties, back pain, melena, hematochezia, urinary symptoms, numbness, weakness, lymphadenopathy, rash, or other complaints. Her reports that she has an appointment scheduled tomorrow to discuss the removal of the mass found on the colonoscopy. She notes that she was on steroids but was taken off today and she is currently on Vancomycin for her C-Diff. The patient states that she has lost 30 pounds in the last 6 weeks. Source of History: patient Onset: today Position: abdomen Quality: other (spasmic) Timing: constant Associated Symptoms: + chills, + nausea, + vomiting, + diarrhea, + weakness Review of Systems See HPI for pertinent positives and negatives. A total of ten systems were reviewed and were otherwise negative. Past Medical & Surgical Medical Problems: (1) Abdominal pain (2) Adenocarcinoma of colon (3) Ileitis (4) SBO (small bowel obstruction) Surgical Problems: (1) History of appendectomy Family History No family history stated. Social History Smoking Status: Never Smoker Drug Use: none Marital Status: Housing Status: lives with family Current/Historical Medications Scheduled Atorvastatin (Lipitor), 20 MG PO HS Control Pills ( Control Pills), 1 TAB PO DAILY Cholecalciferol (Vitamin D3), 2,000 INTER.UNIT PO QAM Vancomycin Hcl (Vancomycin), 125 MG PO QID Scheduled PRN Dicyclomine Hcl (Bentyl), 10 MG PO BID PRN for stomach cramps, gas Allergies Coded Allergies: No Known Allergies (Unverified , 11/11/16) Physical Exam Vital Signs Date Time Temp Pulse Resp B/P (MAP) Pulse Ox O2 Delivery O2 Flow Rate FiO2 11/21/16 22:20 90 18 11/21/16 22:17 99 11/21/16 22:15 87 22 11/21/16 22:14 158/95 11/21/16 22:05 80 19 98 11/21/16 22:00 71 16 98 11/21/16 21:55 77 20 98 11/21/16 21:50 75 18 95 11/21/16 21:45 78 14 97 11/21/16 21:40 85 18 98 11/21/16 21:35 80 21 98 11/21/16 21:30 84 22 96 11/21/16 21:25 74 16 96 11/21/16 21:20 77 15 96 11/21/16 21:15 77 20 96 11/21/16 21:03 74 20 144/93 95 Room Air 11/21/16 19:08 86 18 147/86 95 Room Air 11/21/16 18:30 86 11/21/16 18:01 36.6 117 20 126/88 97 Room Air Physical Exam GENERAL: Awake, alert, uncomfortable appearing HENT: Normocephalic, atraumatic. Oropharynx unremarkable. EYES: Normal conjunctiva. Sclera non-icteric. NECK: Supple. No nuchal rigidity. FROM. No JVD. RESPIRATORY: Clear to auscultation. CARDIAC: Borderline tachycardic rate, normal rhythm. Extremities warm and well perfused. Pulses equal. ABDOMEN: Soft, non-distended. Mild left lower quadrant tenderness. No rebound or guarding. No masses. RECTAL: Deferred. MUSCULOSKELETAL: Chest examination reveals no tenderness. The back is symmetrical on inspection without obvious abnormality. There is no CVA tenderness to palpation. No joint edema. LOWER EXTREMITIES: Calves are equal size bilaterally and non-tender. No edema. No discoloration. NEURO: Normal sensorium. No sensory or motor deficits noted. SKIN: No rash or jaundice noted. Medical Decision & Procedures ER Provider Diagnostic Interpretation: Radiology results as stated below per my review and radiologist interpretation: CT SCAN OF THE ABDOMEN AND PELVIS WITHOUT CONTRAST FINDINGS: Lower chest: The heart is normal in size and configuration, without pericardial effusion. The lung bases and pleural spaces are clear. Liver: The unenhanced liver is normal in size, contour, and attenuation. There is no intrahepatic biliary ductal dilatation. There is trace perihepatic fluid Gallbladder: Unremarkable. Spleen: Normal in size and attenuation. There is trace perisplenic fluid. Pancreas: Unremarkable. Adrenal glands: Unremarkable. Kidneys: No renal, ureteral, or bladder calculi are visualized. Bowel: There is a 4.5 cm soft tissue mass at the level of the terminal ileum/ileocecal valve. It is not possible to determine whether this is inflammatory or neoplastic. This results in a small bowel obstruction. There is mild mesenteric edema. There is minimal ascites. Peritoneum: There is minimal ascites. No free intraperitoneal air is visualized. There are scattered peritoneal nodules. Carcinomatosis must be considered. Vasculature: The abdominal aorta is normal in course and caliber. Adenopathy: There are small pericecal lymph nodes which could be pathologic. Pelvic viscera: There is a suspected exophytic uterine fibroid arising from the fundus. Skeletal structures: No destructive osseous lesions are seen. IMPRESSION: 1. Interval development of a distal small bowel obstruction. There is mild associated mesenteric edema and minimal ascites 2. 4.5 cm soft tissue mass at the level of the terminal ileum/ileocecal valve. This is the apparent etiology of the small bowel obstruction. It is not possible to determine with this is inflammatory or neoplastic 3. Scattered small peritoneal nodules. Carcinomatosis must be considered. Electronically signed by: Baldo Ritter M.D. 11/21/2016 8:57 PM Dictated Date/Time: 11/21/2016 8:49 PM Laboratory Results 11/21/16 18:20 Red Blood Count 5.42, Mean Corpuscular Volume 87.6, Mean Corpuscular Hemoglobin 31.9, Mean Corpuscular Hemoglobin Concent 36.4, Mean Platelet Volume 10.8, Neutrophils (%) (Auto) 83.1, Lymphocytes (%) (Auto) 8.1, Monocytes (%) (Auto) 8.1, Eosinophils (%) (Auto) 0.1, Basophils (%) (Auto) 0.1, Neutrophils # (Auto) 12.27, Lymphocytes # (Auto) 1.20, Monocytes # (Auto) 1.20, Eosinophils # (Auto) 0.02, Basophils # (Auto) 0.01 11/21/16 18:20 Test 11/21/16 18:20 11/21/16 22:15 White Blood Count 14.77 K/uL (4.8-10.8) Red Blood Count 5.42 M/uL (4.2-5.4) Hemoglobin 17.3 g/dL (12.0-16.0) Hematocrit 47.5 % (37-47) Mean Corpuscular Volume 87.6 fL (80-100) Mean Corpuscular Hemoglobin 31.9 pg (25-34) Mean Corpuscular Hemoglobin Concent 36.4 g/dl (32-36) Platelet Count 258 K/uL (130-400) Mean Platelet Volume 10.8 fL (7.4-10.4) Neutrophils (%) (Auto) 83.1 % Lymphocytes (%) (Auto) 8.1 % Monocytes (%) (Auto) 8.1 % Eosinophils (%) (Auto) 0.1 % Basophils (%) (Auto) 0.1 % Neutrophils # (Auto) 12.27 K/uL (1.4-6.5) Lymphocytes # (Auto) 1.20 K/uL (1.2-3.4) Monocytes # (Auto) 1.20 K/uL (0.11-0.59) Eosinophils # (Auto) 0.02 K/uL (0-0.5) Basophils # (Auto) 0.01 K/uL (0-0.2) RDW Standard Deviation 41.9 fL (36.4-46.3) RDW Coefficient of Variation 13.0 % (11.5-14.5) Immature Granulocyte % (Auto) 0.5 % Immature Granulocyte # (Auto) 0.07 K/uL (0.00-0.02) Anion Gap 11.0 mmol/L (3-11) Est Creatinine Clear Calc Drug Dose 75.7 ml/min Estimated GFR () 83.1 Estimated GFR (Non- 71.7 BUN/Creatinine Ratio 16.2 (10-20) Calcium Level 9.1 mg/dl (8.5-10.1) Total Bilirubin 2.2 mg/dl (0.2-1) Direct Bilirubin 0.5 mg/dl (0-0.2) Aspartate Amino Transf (AST/SGOT) 18 U/L (15-37) Alanine Aminotransferase (ALT/SGPT) 54 U/L (12-78) Alkaline Phosphatase 41 U/L (45-117) Total Protein 7.1 gm/dl (6.4-8.2) Albumin 3.6 gm/dl (3.4-5.0) Lipase 252 U/L (73-393) Urine Color ORANGE Urine Appearance CLEAR (CLEAR) Urine pH 5.0 (4.5-7.5) Urine Specific [place] 1.028 (1.000-1.030) Urine Protein TRACE (NEG) Urine Glucose (UA) NEG (NEG) Urine Ketones 1+ (NEG) Urine Occult Blood NEG (NEG) Urine Nitrite POS (NEG) Urine Bilirubin 1+ (NEG) Urine Urobilinogen NEG (NEG) Urine Leukocyte Esterase TRACE (NEG) Urine WBC (Auto) 1-5 /hpf (0-5) Urine RBC (Auto) 0-4 /hpf (0-4) Urine Hyaline Casts (Auto) 10-30 /lpf (0-5) Urine Epithelial Cells (Auto) >30 /lpf (0-5) Urine Bacteria (Auto) NEG (NEG) Laboratory results reviewed by me Medications Administered Medications (Trade) Dose Ordered Sig/Cheryl Route Start Time Stop Time Status Last Admin Dose Admin Sodium Chloride 1,000 ml @ 125 mls/hr Q8H STAT IV 11/21/16 18:09 11/21/16 23:20 DC 11/21/16 19:04 125 MLS/HR Sodium Chloride 1,000 ml @ 999 mls/hr Q1H1M STAT IV 11/21/16 18:09 11/21/16 19:09 DC 11/21/16 18:09 999 MLS/HR Hydromorphone HCl (Dilaudid Inj) 1 mg NOW STAT IV 11/21/16 18:50 11/21/16 18:52 DC 11/21/16 19:04 1 MG Ondansetron HCl (Zofran 8mg Iv) 8 mg NOW ONCE IV 11/21/16 19:00 11/21/16 19:02 DC 11/21/16 19:04 8 MG Hydromorphone HCl (Dilaudid Inj) 1 mg NOW STAT IV 11/21/16 22:04 11/21/16 22:05 DC 11/21/16 22:12 1 MG ED Course 1808: The patient was evaluated in room C8. A complete history and physical exam was performed. 180: Sodium Chloride 1000 ml @ 999 mls/hr IV, Sodium Chloride 1000 ml @ 125 mls /hr IV. 0: Dilaudid Inj 1mg IV. 1899: Ondansetron HCl 8mg IV. 2058: I reevaluated and updated the patient. She is doing well. 2101: Discussed the patient's case with Dr. Brenda ZAMAN. The patient will be evaluated for further treatment and disposition. 2113: Upon reexamination, the patient was doing well. I discussed the test results and treatment plan with her. The patient will be evaluated for further management. Medical Decision Triage Nursing notes reviewed. The patient's presentation and history were concerning for abdominal pain with known terminal ileum tumor. Etiologies such as obstruction, appendicitis, diverticulitis, inflammatory bowel disease, renal colic, PUD, biliary pathology, pancreatitis, mesenteric ischemia, aortic pathology, infections, genitourinary, UTI, perforated viscus, as well as others were entertained. . Patient was evaluated. She was uncomfortable. She was hydrated. She was given Dilaudid and Zofran. She required a second dose. Her nausea and vomiting were well controlled. Her laboratory testing was unremarkable. Her CT scan revealed a small bowel obstruction as noted above. The patient will need further evaluation and management in the hospital. I did consult with the hospitalist service. The patient was evaluated in the Emergency Room for further management. Medication Reconcilliation Current Medication List: was personally reviewed by me Blood Pressure Screening Patient's blood pressure: Normal blood pressure Blood pressure disposition: Did not require urgent referral Consults Time Called: 2099 Consulting Physician: Dr. Brenda ZAMAN Returned Call: [phone] Discussed the patient's case with Dr. Brenda ZAMAN. The patient will be evaluated for further treatment and disposition. Impression Primary Impression: Bowel obstruction Scribe Attestation The scribe's documentation has been prepared under my direction and personally reviewed by me in its entirety. I confirm that the note above accurately reflects all work, treatment, procedures, and medical decision making performed by me. Departure Information Dispostion Being Evaluated By Hospitalist Referrals Olegario Diehl M.D. (PCP) Patient Instructions My [facility]
[2016-11-22] MEDS ORDERED: PIPERACILL/TAZOBAC CONSULT ACTIVE PRN (03:45)
[2016-11-22] MEDS ORDERED: PIPERACILL/TAZOBAC IV 3.375 GM in DEXTROSE 5% 100ML IV ONE (04:00)
[2016-11-22] MEDS: LACTATED RINGER'S 1000ML 1,000 ML IV SCH ×2 (05:42→14:00)
[2016-11-22] MEDS ORDERED: PIPERACILL/TAZOBAC IV 3.375 GM in DEXTROSE 5% 100ML 100 ML IV SCH (06:00)
--- NOTE | 2016-11-22 06:18 | Medical Consult ---
Consultation Date of Consultation: Nov 22, 2016. Attending Physician: Carlos Gutierrez M.D. Reason for Consultation: colon tumor History of Present Illness pt adm with dx of Rt colon cancer- recently in hospital with N/V- had Rt colon , small bowel chgs- underwent colonoscopy- bx showed adenocarcinoma- pt presents with N/V abdominal pain. Has been having abd sxs since end of August. Began feeling better then recurrent sxs. Approximate 20 # wt loss. Called re path report yesterday. Past Medical/Surgical History Medical Problems: (1) Bowel obstruction Status: Acute (2) Lower abdominal pain Status: Acute (3) Small bowel obstruction Status: Acute Social History Smoking Status: Never Smoker Smokeless Tobacco Use: No Alcohol Use: none Drug Use: none Marital Status: Housing Status: lives with family Occupation Status: employed Allergies Coded Allergies: No Known Allergies (Unverified , 11/11/16) Current Inpatient Medications Current Inpatient Medications Medications (Trade) Dose Ordered Sig/Cheryl Route Start Time Stop Time Status Last Admin Dose Admin Ondansetron HCl (Zofran Inj) 4 mg Q6H PRN IV 11/21/16 22:30 12/21/16 22:29 Vancomycin HCl (Vancomycin Oral Soln) 125 mg QID PO 11/21/16 22:30 12/05/16 22:29 11/22/16 00:05 125 MG Hydromorphone HCl (Dilaudid Inj) 1 mg Q3H PRN IV 11/21/16 22:30 12/05/16 22:29 Lactated Ringer's 1,000 ml @ 150 mls/hr Q6H40M IV 11/21/16 23:30 11/22/16 19:29 11/22/16 05:42 150 MLS/HR Raspberry (Raspberry Syrup 5ml Cup) 5 ml QID PO 11/22/16 09:00 12/06/16 08:59 Piperacillin Sod/ Tazobactam Sod 3.375 gm/Dextrose 115 ml @ 28.75 mls/ hr Q8H IV 11/22/16 08:00 12/02/16 07:59 Piperacillin Sod/ Tazobactam Sod (Consult) 1 ea UD PRN N/A 11/22/16 03:45 12/22/16 03:44 Review of Systems Constitutional: No fever, No chills Eyes: No eye pain Respiratory: No cough, No shortness of breath Cardiovascular: No chest pain Abdomen: + pain, + nausea, + vomiting Genitourinary - Female: No dysuria Neurologic: + weakness Integumentary: No rash Physical Exam Date Time Temp Pulse Resp B/P (MAP) Pulse Ox O2 Delivery O2 Flow Rate FiO2 11/21/16 23:15 36.9 80 16 119/79 (92) 96 Room Air 11/21/16 23:15 Room Air 11/21/16 23:00 75 14 11/21/16 22:59 Room Air 11/21/16 22:55 81 19 11/21/16 22:50 86 15 11/21/16 22:47 128/79 11/21/16 22:45 85 21 11/21/16 22:40 100 17 11/21/16 22:35 87 12 11/21/16 22:30 86 22 11/21/16 22:25 85 18 11/21/16 22:20 90 18 11/21/16 22:17 99 11/21/16 22:15 87 22 11/21/16 22:14 158/95 11/21/16 22:05 80 19 98 11/21/16 22:00 71 16 98 11/21/16 21:55 77 20 98 11/21/16 21:50 75 18 95 11/21/16 21:45 78 14 97 11/21/16 21:40 85 18 98 11/21/16 21:35 80 21 98 11/21/16 21:30 84 22 96 11/21/16 21:25 74 16 96 11/21/16 21:20 77 15 96 11/21/16 21:15 77 20 96 11/21/16 21:03 74 20 144/93 95 Room Air 11/21/16 19:08 86 18 147/86 95 Room Air 11/21/16 18:30 86 11/21/16 18:01 36.6 117 20 126/88 97 Room Air General Appearance: no apparent distress Head: atraumatic Eyes: sclerae normal Neck: supple Respiratory/Chest: no respiratory distress Cardiovascular: regular rate, rhythm Abdomen/GI: non tender, soft Extremities/Musculoskelatal: no pedal edema Laboratory Results Last 24 Hours Test 11/21/16 18:20 11/21/16 22:15 White Blood Count 14.77 K/uL Red Blood Count 5.42 M/uL Hemoglobin 17.3 g/dL Hematocrit 47.5 % Mean Corpuscular Volume 87.6 fL Mean Corpuscular Hemoglobin 31.9 pg Mean Corpuscular Hemoglobin Concent 36.4 g/dl Platelet Count 258 K/uL Mean Platelet Volume 10.8 fL Neutrophils (%) (Auto) 83.1 % Lymphocytes (%) (Auto) 8.1 % Monocytes (%) (Auto) 8.1 % Eosinophils (%) (Auto) 0.1 % Basophils (%) (Auto) 0.1 % Neutrophils # (Auto) 12.27 K/uL Lymphocytes # (Auto) 1.20 K/uL Monocytes # (Auto) 1.20 K/uL Eosinophils # (Auto) 0.02 K/uL Basophils # (Auto) 0.01 K/uL RDW Standard Deviation 41.9 fL RDW Coefficient of Variation 13.0 % Immature Granulocyte % (Auto) 0.5 % Immature Granulocyte # (Auto) 0.07 K/uL Sodium Level 134 mmol/L Potassium Level 3.7 mmol/L Chloride Level 100 mmol/L Carbon Dioxide Level 23 mmol/L Anion Gap 11.0 mmol/L Blood Urea Nitrogen 15 mg/dl Creatinine 0.93 mg/dl Est Creatinine Clear Calc Drug Dose 75.7 ml/min Estimated GFR () 83.1 Estimated GFR (Non- 71.7 BUN/Creatinine Ratio 16.2 Random Glucose 147 mg/dl Calcium Level 9.1 mg/dl Total Bilirubin 2.2 mg/dl Direct Bilirubin 0.5 mg/dl Aspartate Amino Transf (AST/SGOT) 18 U/L Alanine Aminotransferase (ALT/SGPT) 54 U/L Alkaline Phosphatase 41 U/L Total Protein 7.1 gm/dl Albumin 3.6 gm/dl Lipase 252 U/L Urine Color ORANGE Urine Appearance CLEAR Urine pH 5.0 Urine Specific [place] 1.028 Urine Protein TRACE Urine Glucose (UA) NEG Urine Ketones 1+ Urine Occult Blood NEG Urine Nitrite POS Urine Bilirubin 1+ Urine Urobilinogen NEG Urine Leukocyte Esterase TRACE Urine WBC (Auto) 1-5 /hpf Urine RBC (Auto) 0-4 /hpf Urine Hyaline Casts (Auto) 10-30 /lpf Urine Epithelial Cells (Auto) >30 /lpf Urine Bacteria (Auto) NEG Assessment & Plan 11/22/16- pt admitted with adenocarcinoma involving Rt colon and small bowel with significant mesenteric mass effect on CT- probably lymphatic spread up to area of the duodenum. This will be a difficult operation to remove all tumor- I feel she should this done by a colorectal service- she and I discussed transfer to [facility] for higher level of care. will discuss with medical team.
[2016-11-22 07:18] VITALS: BP 143/88; PULSE 85; TEMP 36.9; O2SAT 98
[2016-11-22] MEDS: RASPBERRY SYRUP 5 ML UDP PO SCH ×4 (07:51→20:36)
[2016-11-22] MEDS: PIPERACILL/TAZOBAC IV 3.375 GM in DEXTROSE 5% 100ML IV SCH ×2 (07:51→15:30)
--- NOTE | 2016-11-22 09:11 | Discharge Summary ---
Discharge Summary Date of Service Nov 22, 2016. 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 Mo Discharge Exam Patient resting in bed comfortably, no pain or vomiting this AM. No BM since admission. Appreciate consult from Dr. Mo, recommends transfer to [place] for colorectal surgeon. Discussed the case with Dr. Barriga at [place], he will accept the patient to his service. Review of Systems: Constitutional: + weight loss (30 pounds in past month), + weakness, + fatigue, No fever, No chills, No sweats, No problem reported Eyes: No worsening of vision, No eye pain, No redness, No discharge, No diplopia, No problem reported ENT: No hearing loss, No unusual epistaxis, No nasal symptoms, No sore throat, No tinnitus, No dental problems, No trouble swallowing, No problem reported Respiratory: No cough, No sputum, No wheezing, No shortness of breath, No dyspnea on exertion, No dyspnea at rest, No hemoptysis, No problem reported Cardiovascular: No chest pain, No orthopnea, No PND, No edema, No claudication, No palpitations, No problem reported Abdomen: + pain (intermittent, spasms), + constipation, No nausea, No vomiting, No diarrhea, No GI bleeding, No problem reported Musculoskeletal: No joint pain, No muscle pain, No swelling, No calf pain, No problem reported Genitourinary - Female: No dysuria, No urinary frequency, No urinary urgency , No urinary incontinence Neurologic: No memory loss, No paralysis, No weakness, No numbness/tingling , No vertigo, No balance problems, No problem reported Psychiatric: No depression symptoms, No anhedonism, No anxiety, No insomnia , No substance abuse, No problem reported Endocrine: No fatigue, No excessive thirst, No excessive urination, No problem reported Hematologic / Lymphatic: No abnormal bleeding/bruising, No clotting problems , No swollen lymph nodes, No night sweats, No problem reported Integumentary: No rash, No itch, No new/changing skin lesions, No color change, No bleeding, No problem reported Physical Exam: General Appearance: WD/WN, no apparent distress Eyes: normal inspection, EOMI, sclerae normal ENT: normal ENT inspection, hearing grossly normal, pharynx normal Neck: supple, no adenopathy, no JVD, trachea midline Respiratory/Chest: chest non-tender, lungs clear, normal breath sounds, no respiratory distress, no accessory muscle use Cardiovascular: regular rate, rhythm, no edema, no gallop, no JVD, no murmur , normal peripheral pulses Abdomen / GI: normal bowel sounds, non tender, soft, no organomegaly Extremities: normal inspection, no calf tenderness, normal capillary refill , no pedal edema, normal range of motion, pelvis stable 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 Barriga with colorectal surgery at [place] will accept patient on transfer for definitive treatment, possible surgical resection Adenocarcinoma, staining favoring Johnson Syndrome - transfer to [place] for colorectal surgical evaluation and possible surgical resection Abdominal pain - intermittent, spasm like, has not requested any Dilaudid C Diff Colitis, diagnosed on prior admission - treating with Vancomycin PO at home - per patient, she does not have any diarrhea, no fevers VTE: SCDs Code status: Full Dispo: transfer to [place] Total Time Spent: Greater than 30 minutes This includes examination of the patient, discharge planning, medication reconciliation, and communication with other providers. Discharge Instructions Please refer to the electronic Patient Visit Report (Discharge Instructions) for additional information. Follow-Up Dr. Barriga at [place] Additional Copies To Amor Barriga M.D.; Olegario Diehl M.D.
[2016-11-22 09:16] VITALS: BP 143/88; PULSE 85; TEMP 36.9; O2SAT 98
[2016-11-22] MEDS: HYDROmorphone INJ 1 MG/ML SYR IV PRN ×3 (09:47→21:25)
--- NOTE | 2016-11-22 12:05 | Oncology Consultation ---
Oncology/Heme Consultation Date of Consultation: Nov 22, 2016. Attending Physician: Carlos Eduardo Batista D.O. Reason for Consultation: Recent diagnosis of colon carcinoma History of Present Illness Ms. Pendleton is a 51-year-old female that states while on vacation she was having diarrhea as well as nausea. She apparently was evaluated while on vacation in [place] and there was an initial thought that she may have granulomatous colitis. 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 She was notified of this and presents now with worsening diarrhea as well as nausea and vomiting with CT evidence of now small bowel obstruction. She reviews with me that she was also recently found to have C. difficile colitis. Past Medical/Surgical History Medical Problems: (1) Bowel obstruction Status: Acute (2) Lower abdominal pain Status: Acute (3) Small bowel obstruction Status: Acute Family History Father had lung carcinoma although she states he was a longtime smoker. There is an uncle on the father's side has a history of stomach cancer. Apparently he perioperatively. Otherwise she is not aware of any carcinoma in the family. Social History Negative for significant smoking or alcohol usage. Smoking Status: Never Smoker Smokeless Tobacco Use: No Alcohol Use: none Drug Use: none Marital Status: Housing Status: lives with family Occupation Status: employed Allergies Coded Allergies: No Known Allergies (Unverified , 11/11/16) Home Medications Scheduled Atorvastatin (Lipitor), 20 MG PO HS Control Pills ( Control Pills), 1 TAB PO DAILY Cholecalciferol (Vitamin D3), 2,000 INTER.UNIT PO QAM Vancomycin Hcl (Vancomycin), 125 MG PO QID Scheduled PRN Dicyclomine Hcl (Bentyl), 10 MG PO BID PRN for stomach cramps, gas Current Inpatient Medications Current Inpatient Medications Medications (Trade) Dose Ordered Sig/Cheryl Route Start Time Stop Time Status Last Admin Dose Admin Ondansetron HCl (Zofran Inj) 4 mg Q6H PRN IV 11/21/16 22:30 12/21/16 22:29 Vancomycin HCl (Vancomycin Oral Soln) 125 mg QID PO 11/21/16 22:30 12/05/16 22:29 11/22/16 07:52 125 MG Hydromorphone HCl (Dilaudid Inj) 1 mg Q3H PRN IV 11/21/16 22:30 12/05/16 22:29 11/22/16 09:47 1 MG Lactated Ringer's 1,000 ml @ 150 mls/hr Q6H40M IV 11/21/16 23:30 11/22/16 19:29 11/22/16 05:42 150 MLS/HR Raspberry (Raspberry Syrup 5ml Cup) 5 ml QID PO 11/22/16 09:00 12/06/16 08:59 11/22/16 07:51 5 ML Piperacillin Sod/ Tazobactam Sod 3.375 gm/Dextrose 115 ml @ 28.75 mls/ hr Q8H IV 11/22/16 08:00 12/02/16 07:59 11/22/16 07:51 28.75 MLS/HR Piperacillin Sod/ Tazobactam Sod (Consult) 1 ea UD PRN N/A 11/22/16 03:45 12/22/16 03:44 Review of Systems Constitutional: Negative for weight loss, night sweats, or fever Eyes: Negative for event change of vision ENT: Negative for epistaxis, nasal discharge, sore throat, or deafness Cardiovascular: Negative for chest pain, palpitations, dizziness, diaphoresis Respiratory: Negative for new shortness of breath,hemoptysis, or purulent cough Gastrointestinal: Negative for hematemesis, melena, or dyspepsia. Positive again for diarrhea as well as nausea Integumentary (skin): Negative for rash or jaundice discoloration Genitourinary: Negative for urinary frequency, hematuria, or dysuria Neurological: Negative for weakness, seizure activity, headache, or dizziness Lymphatic/Hematologic: Negative for petechiae, bleeding or new adenopathy Musculoskeletal: Negative for new joint or back pain Allergic/Immunologic: Negative for unusual rash or pruritis. Physical Exam Date Time Temp Pulse Resp B/P (MAP) Pulse Ox O2 Delivery O2 Flow Rate FiO2 11/22/16 09:16 36.9 85 16 98 Room Air 11/22/16 07:45 Room Air 11/22/16 07:18 36.9 85 16 143/88 (106) 98 Room Air 11/21/16 23:15 36.9 80 16 119/79 (92) 96 Room Air 11/21/16 23:15 Room Air 11/21/16 23:00 75 14 11/21/16 22:59 Room Air 11/21/16 22:55 81 19 11/21/16 22:50 86 15 11/21/16 22:47 128/79 11/21/16 22:45 85 21 11/21/16 22:40 100 17 11/21/16 22:35 87 12 11/21/16 22:30 86 22 11/21/16 22:25 85 18 11/21/16 22:20 90 18 11/21/16 22:17 99 11/21/16 22:15 87 22 11/21/16 22:14 158/95 11/21/16 22:05 80 19 98 11/21/16 22:00 71 16 98 11/21/16 21:55 77 20 98 11/21/16 21:50 75 18 95 11/21/16 21:45 78 14 97 11/21/16 21:40 85 18 98 11/21/16 21:35 80 21 98 11/21/16 21:30 84 22 96 11/21/16 21:25 74 16 96 11/21/16 21:20 77 15 96 11/21/16 21:15 77 20 96 11/21/16 21:03 74 20 144/93 95 Room Air 11/21/16 19:08 86 18 147/86 95 Room Air 11/21/16 18:30 86 11/21/16 18:01 36.6 117 20 126/88 97 Room Air Constitutional: vitals are stable. Eyes: Eyes are SWATHI EOMI without conjuctival erythema or icterus. ENT: External examination was negative for masses. Neck: Negative for masses or palpable thyromegaly Respiratory: Lung sounds were generally clear bilaterally Cardiovascular: Heart was RRR without significant murmur, gallops aoe rubs Gastrointestinal: No palpable hepatic or splenomegaly. The abdomen was soft bowel sounds tended to be high-pitched. Lymphatic system: there was no palpable peripheral lymphadenopathy Musculoskeletal System: The musculoskeletal system seemed concordant with age. Skin: The skin was negative for jaundice. Neurologic exam: The exam was negative for any focal findings. Deep tendon reflexes were equal and symmetrical. Psychiatric exam: Was essentially negative with normal mood and effect. Breast exam: Not done Extremities: Negative for edema Laboratory Results Last 24 Hours Test 11/21/16 18:11/21/16 22:15 White Blood Count 14.77 K/uL Red Blood Count 5.42 M/uL Hemoglobin 17.3 g/dL Hematocrit 47.5 % Mean Corpuscular Volume 87.6 fL Mean Corpuscular Hemoglobin 31.9 pg Mean Corpuscular Hemoglobin Concent 36.4 g/dl Platelet Count 258 K/uL Mean Platelet Volume 10.8 fL Neutrophils (%) (Auto) 83.1 % Lymphocytes (%) (Auto) 8.1 % Monocytes (%) (Auto) 8.1 % Eosinophils (%) (Auto) 0.1 % Basophils (%) (Auto) 0.1 % Neutrophils # (Auto) 12.27 K/uL Lymphocytes # (Auto) 1.20 K/uL Monocytes # (Auto) 1.20 K/uL Eosinophils # (Auto) 0.02 K/uL Basophils # (Auto) 0.01 K/uL RDW Standard Deviation 41.9 fL RDW Coefficient of Variation 13.0 % Immature Granulocyte % (Auto) 0.5 % Immature Granulocyte # (Auto) 0.07 K/uL Sodium Level 134 mmol/L Potassium Level 3.7 mmol/L Chloride Level 100 mmol/L Carbon Dioxide Level 23 mmol/L Anion Gap 11.0 mmol/L Blood Urea Nitrogen 15 mg/dl Creatinine 0.93 mg/dl Est Creatinine Clear Calc Drug Dose 75.7 ml/min Estimated GFR () 83.1 Estimated GFR (Non- 71.7 BUN/Creatinine Ratio 16.2 Random Glucose 147 mg/dl Calcium Level 9.1 mg/dl Total Bilirubin 2.2 mg/dl Direct Bilirubin 0.5 mg/dl Aspartate Amino Transf (AST/SGOT) 18 U/L Alanine Aminotransferase (ALT/SGPT) 54 U/L Alkaline Phosphatase 41 U/L Total Protein 7.1 gm/dl Albumin 3.6 gm/dl Lipase 252 U/L Urine Color ORANGE Urine Appearance CLEAR Urine pH 5.0 Urine Specific [place] 1.028 Urine Protein TRACE Urine Glucose (UA) NEG Urine Ketones 1+ Urine Occult Blood NEG Urine Nitrite POS Urine Bilirubin 1+ Urine Urobilinogen NEG Urine Leukocyte Esterase TRACE Urine WBC (Auto) 1-5 /hpf Urine RBC (Auto) 0-4 /hpf Urine Hyaline Casts (Auto) 10-30 /lpf Urine Epithelial Cells (Auto) >30 /lpf Urine Bacteria (Auto) NEG Assessment & Plan CT scan of the abdomen and pelvis was reviewed and showed the right colon lesion. Actually the lesion itself that is evaluable seems to be extraluminal. There is evidence of bowel obstruction. In addition there are nodules seen in the peritoneum that would be consistent with carcinomatosis. As I understand it she is being prepared for transfer to [facility] for surgery. She should be on antibiotics for the C. difficile colitis. I have made her aware that postoperatively there will need to be conversations about chemotherapy. I did leave contact information for her for our clinic however I have also advised that she may be connected with the [facility] oncology medical group - regardless just as long as there is medical oncology follow-up. Finally she this tumor does appear to be MSI high perhaps consistent with an underlying Johnson type syndrome.
[2016-11-22 15:19] VITALS: BP 148/95; PULSE 72; TEMP 37; O2SAT 98
== END 2016-11-22 21:50 | disposition short-term general hospital (02) | DRG 389 ==
LOC: C.EDB 17:59 → C.MSW 22:20 → ENRESERV 22:28
PROVIDERS: ADMIT Hospitalist; ATTEND Internal Medicine
DX: K56.60 Unspecified intestinal obstruction (principal); C18.0 Malignant neoplasm of cecum; Z90.49 Acquired absence of other specified parts of digestive tract; Z79.899 Other long term (current) drug therapy

== ENCOUNTER → 2016-12-27 | Outpatient (CLI) | payer OTHER ==
[~2016-12-27] MED LIST changes: -PNT250 PO; -PRED10TA PO
== END | disposition home or self-care (01) ==
LOC: C.PAPS 16:06
PROVIDERS: ATTEND Obstetrics & Gynecology
DX: Z12.4 Encounter for screening for malignant neoplasm of cervix (principal); Z11.51 Encounter for screening for human papillomavirus (HPV)

== ENCOUNTER → 2017-01-15 | Outpatient (CLI) | payer OTHER ==
--- NOTE | 2017-01-16 08:12 | MAMMOGRAPHY REPORT ---
BILATERAL DIGITAL SCREENING MAMMOGRAM TOMOSYNTHESIS WITH CAD: 01/15/2017 CLINICAL HISTORY: Routine screening. Patient has no complaints. TECHNIQUE: Breast tomosynthesis in addition to standard 2D mammography was performed. Current study was also evaluated with a Computer Aided Detection (CAD) system. COMPARISON: Comparison is made to exams dated: 04/06/2014 mammogram, 01/11/2016 mammogram, 03/05/2013 mammogram, 01/22/2011 mammogram - [facility] [address], and 07/25/2007. BREAST COMPOSITION: The tissue of both breasts is heterogeneously dense, which may obscure small mas ses. FINDINGS: There are scattered benign-appearing calcifications in both breasts. No suspicious mass, a rchitectural distortion or cluster of suspicious microcalcifications is seen. IMPRESSION: ACR BI-RADS CATEGORY 1: NEGATIVE There is no mammographic evidence of malignancy. A 1 year screening mammogram is recommended. The pa tient will receive written notification of the results. Approximately 10% of breast cancers are not detected with mammography. A negative mammographic report should not delay biopsy if a clinically suggestive mass is present. Marta Powell M.D. ay/:01/15/2017 17:24:35 Wedding Day Coordinator: Rita SIMON(Sherwin)(M), [facility] [address] letter sent: Normal 1/2 BI-RADS Code: ACR BI-RADS Category 1: Negative
== END | disposition home or self-care (01) ==
LOC: C.MAMM 07:51
PROVIDERS: ATTEND Internal Medicine
DX: Z12.31 Encounter for screening mammogram for malignant neoplasm of breast (principal)

== ENCOUNTER 2017-04-14 19:23 | Inpatient (IN) | payer OTHER ==
[~2017-04-14] VITALS: Ht 175.3 cm; Wt 58.4 kg
[~2017-04-14 19:23] MED LIST changes: -CIPR1TAB11 PO; -CYCL10TA6 PO; -DILT30TA PO; -DRGTP12 TOP; -HEMP OIL PO; -OLAN5TAB3 PO; +ONDA-170 PO; -ONDA8TAB6 PO; +OXYC-90 PO; -OXYC10SO PO; -OXYC1TAB3 PO; +PROC10TA PO; -PROC1TAB5 PO; +THIA100T27 IV; -THM100 IV; -ZOLP5TAB PO
[2017-04-14] MEDS ORDERED: SODIUM CHLORIDE 0.9% 1000ML 1,000 ML IV STA (19:53)
[2017-04-14 19:55] VITALS: O2SAT 100
[2017-04-14] MEDS ORDERED: CIPR1TAB11 PO (20:06)
[2017-04-14] MEDS ORDERED: ZOLP5TAB PO (20:08)
[2017-04-14] MEDS ORDERED: CYCL10TA6 PO (20:09)
[2017-04-14] MEDS ORDERED: DILT30TA PO (20:12)
[2017-04-14] MEDS ORDERED: DRGTP12 TOP (20:15)
[2017-04-14 20:17] LABS: BASO % 0.1 %; BASO ABS # 0.01 K/uL (0-0.2); EOS % 0.1 %; EOS ABS # 0.02 K/uL (0-0.5); HEMATOCRIT 28.8 % (37-47); HEMOGLOBIN 9.9 g/dL (12.0-16.0); LYMPH % 3.6 %; LYMPH ABS # 0.66 K/uL (1.2-3.4); MEAN CELL VOLUME 80.9 fL (80-100); MEAN CORPUSCULAR HEMOGLOBIN 27.8 pg (25-34); MEAN CORPUSCULAR HGB CONC 34.4 g/dl (32-36); MEAN PLATELET VOLUME 10.2 fL (7.4-10.4); MONO % 4.9 %; NEUT % 90.2 %; NEUT ABS # 16.61 K/uL (1.4-6.5); PLATELET COUNT 505 K/uL (130-400); RED CELL DISTRIBUTION WIDTH CV 17.4 % (11.5-14.5); RED CELL DISTRIBUTION WIDTH SD 51.8 fL (36.4-46.3)
[2017-04-14] MEDS ORDERED: OLAN5TAB3 PO (20:18)
[2017-04-14] MEDS ORDERED: OXYC10SO PO (20:21)
[2017-04-14] MEDS ORDERED: HEMP OIL PO (20:27)
--- NOTE | 2017-04-14 20:28 | DIAGNOSTIC IMAGING REPORT ---
CHEST ONE VIEW PORTABLE CLINICAL HISTORY: ABDOMINAL PAIN/GI pain. Nausea. COMPARISON STUDY: 02/22/2017 FINDINGS: Central catheter in superior vena cava. Lungs are clear. Diaphragms smooth. IMPRESSION: No acute process. Chronic and postoperative change. The above report was generated using voice recognition software. It may contain grammatical, syntax or spelling errors. Electronically signed by: Navin Quinteros M.D. 04/14/2017 8:26 PM Dictated Date/Time: 04/14/2017 8:25 PM
[2017-04-14 20:56] LABS: ALBUMIN 2.8 gm/dl (3.4-5.0); CALCIUM 8.6 mg/dl (8.5-10.1); CREATININE 6.05 mg/dl (0.60-1.20); PHOSPHORUS 15.8 mg/dl (2.5-4.9); POTASSIUM 5.4 mmol/L (3.5-5.1); TOTAL PROTEIN 9.6 gm/dl (6.4-8.2)
[2017-04-14] MEDS ORDERED: ONDANSETRON INJ 2 MG/ML 2 ML VIAL IV STA (21:23)
--- NOTE | 2017-04-14 21:55 | EMERGENCY ROOM VISIT NOTE ---
History Report prepared by Faith: Dez Greenberg Under the Supervision of: Dr. Jon Fitzpatrick M.D. First contact with patient: 19:35 Chief Complaint: DEHYDRATION Stated Complaint: DEHYDRATION Nursing Triage Summary: patient from home. family called because they believe she is dehydrated. Hx of bowel cancer. Also states she has had abd pain over last day or so, denies N/V/D. has ileostomy History of Present Illness The patient is a 51 year old female who presents to the Emergency Room by EMS with complaints of worsening generalized weakness beginning this week. She is currently on hospice for stage 4 bowel cancer. She is on hospice at home, but would like to be placed in a facility because she states "I don't want to at home". The patient wears supplemental oxygen at home as needed, and has had to begin wearing it more often recently due to increased shortness of breath. She has an ileostomy in place which has had decreased output recently. She denies nausea, vomiting, or diarrhea. The patient feels that she is currently dehydrated. She has a PEG tube in place to help with decompression. Per , the patient has had some urinary symptoms recently. He states that the patient was started on Cipro for her urinary symptoms and has had one total dose. He notes that the patient has had several near-syncopal episodes recently. Source of History: patient, spouse/significant other Onset: This week Position: other (generalized) Quality: other (weakness) Timing: worsening Associated Symptoms: + SOB, No nausea, No vomiting, No diarrhea Review of Systems See HPI for pertinent positives and negatives. A total of ten systems were reviewed and were otherwise negative. Past Medical & Surgical Medical Problems: (1) Abdominal pain (2) Adenocarcinoma of colon (3) Comfort measures only status (4) Hypokalemia, gastrointestinal losses (5) Ileitis (6) Intractable nausea and vomiting (7) SBO (small bowel obstruction) Surgical Problems: (1) History of appendectomy Family History No pertinent family history stated. Social History Smoking Status: Never Smoker Drug Use: none Marital Status: Housing Status: lives with family Occupation Status: employed Current/Historical Medications Scheduled Ciprofloxacin Tab (Cipro), 1 TAB PO BID Cyclobenzaprine Hcl (Flexeril), 10 MG PO TID Diltiazem Hcl (Cardizem), 30 MG PO QID Famotidine (Pepcid), 40 MG PO BID Fentanyl (Fentanyl), 12.5 MCG TOP Q3D Olanzapine (Zyprexa Zydis Odt), 5 MG PO BID Senna/Docusate Sod (Senokot S), 1 TAB PO BID Scheduled PRN Acetaminophen (Tylenol), 650 MG PO Q4 PRN for Pain or Fever Lorazepam (Ativan), 0.5 MG PO Q6H PRN for chemo related nausea Ondansetron Hcl (Zofran), 8 MG PO Q8 PRN for Nausea Oxycodone Oral Soln (Roxicodone Oral Soln), 10 ML PO Q1H PRN for Pain Prochlorperazine Maleate (Compazine), 10 MG PO TID PRN for Nausea Zolpidem Tartrate (Ambien), 5 MG PO HS PRN for Sleep [Hemp Oil], 0.5 ML PO BID PRN for RELAXATION Allergies Coded Allergies: POLLEN (Unverified Allergy, Intermediate, SNEEZING, 04/14/17) Physical Exam Vital Signs Date Time Temp Pulse Resp B/P (MAP) Pulse Ox O2 Delivery O2 Flow Rate FiO2 04/14/17 22:30 106 20 99 Nasal Cannula 2.0 04/14/17 22:00 107 16 04/14/17 21:30 105 20 124/81 04/14/17 21:00 104 15 100 04/14/17 20:53 104 19 100 Nasal Cannula 2.0 04/14/17 20:23 114 23 04/14/17 19:55 100 Nasal Cannula 2.0 04/14/17 19:53 105 18 04/14/17 19:33 36.8 109 18 122/79 96 Room Air 04/14/17 19:30 111 04/14/17 19:26 122/79 Physical Exam GENERAL: Awake, alert, chronically ill and cachectic-appearing, in no distress HENT: Normocephalic, atraumatic. Cracked, dry mucous membranes. EYES: Normal conjunctiva. Sclera non-icteric. NECK: Supple. No nuchal rigidity. FROM. No JVD. RESPIRATORY: Clear to auscultation. CARDIAC: Tachycardic rate, normal rhythm. Extremities warm and well perfused. Pulses equal. ABDOMEN: Soft, non-distended. No tenderness to palpation. No rebound or guarding. No masses. PEG tube and ostomy sites without signs of infection. RECTAL: Deferred. MUSCULOSKELETAL: Chest examination reveals no tenderness. The back is symmetrical on inspection without obvious abnormality. There is no CVA tenderness to palpation. No joint edema. LOWER EXTREMITIES: Calves are equal size bilaterally and non-tender. No edema. No discoloration. NEURO: Normal sensorium. No sensory or motor deficits noted. SKIN: No rash or jaundice noted. Medical Decision & Procedures ER Provider Diagnostic Interpretation: Radiology results as stated below per my review and radiologist interpretation: CHEST ONE VIEW PORTABLE FINDINGS: Central catheter in superior vena cava. Lungs are clear. Diaphragms smooth. IMPRESSION: No acute process. Chronic and postoperative change. The above report was generated using voice recognition software. It may contain grammatical, syntax or spelling errors. Electronically signed by: Navin Quinteros M.D. 04/14/2017 8:26 PM Laboratory Results 04/14/17 20:05 Red Blood Count 3.56, Mean Corpuscular Volume 80.9, Mean Corpuscular Hemoglobin 27.8, Mean Corpuscular Hemoglobin Concent 34.4, Mean Platelet Volume 10.2, Neutrophils (%) (Auto) 90.2, Lymphocytes (%) (Auto) 3.6, Monocytes (%) (Auto) 4.9, Eosinophils (%) (Auto) 0.1, Basophils (%) (Auto) 0.1, Neutrophils # (Auto) 16.61, Lymphocytes # (Auto) 0.66, Monocytes # (Auto) 0.90, Eosinophils # (Auto) 0.02, Basophils # (Auto) 0.01 04/14/17 20:05 Test 04/14/17 20:05 White Blood Count 18.40 K/uL (4.8-10.8) Red Blood Count 3.56 M/uL (4.2-5.4) Hemoglobin 9.9 g/dL (12.0-16.0) Hematocrit 28.8 % (37-47) Mean Corpuscular Volume 80.9 fL (80-100) Mean Corpuscular Hemoglobin 27.8 pg (25-34) Mean Corpuscular Hemoglobin Concent 34.4 g/dl (32-36) Platelet Count 505 K/uL (130-400) Mean Platelet Volume 10.2 fL (7.4-10.4) Neutrophils (%) (Auto) 90.2 % Lymphocytes (%) (Auto) 3.6 % Monocytes (%) (Auto) 4.9 % Eosinophils (%) (Auto) 0.1 % Basophils (%) (Auto) 0.1 % Neutrophils # (Auto) 16.61 K/uL (1.4-6.5) Lymphocytes # (Auto) 0.66 K/uL (1.2-3.4) Monocytes # (Auto) 0.90 K/uL (0.11-0.59) Eosinophils # (Auto) 0.02 K/uL (0-0.5) Basophils # (Auto) 0.01 K/uL (0-0.2) RDW Standard Deviation 51.8 fL (36.4-46.3) RDW Coefficient of Variation 17.4 % (11.5-14.5) Immature Granulocyte % (Auto) 1.1 % Immature Granulocyte # (Auto) 0.20 K/uL (0.00-0.02) Anion Gap 21.0 mmol/L (3-11) Est Creatinine Clear Calc Drug Dose 8.8 ml/min Estimated GFR () 8.6 Estimated GFR (Non- 7.4 BUN/Creatinine Ratio 23.2 (10-20) Osmolality 297 mOsm/kg (280-300) Calcium Level 8.6 mg/dl (8.5-10.1) Phosphorus Level 15.8 mg/dl (2.5-4.9) Magnesium Level 2.8 mg/dl (1.8-2.4) Total Bilirubin 0.5 mg/dl (0.2-1) Direct Bilirubin 0.2 mg/dl (0-0.2) Aspartate Amino Transf (AST/SGOT) 31 U/L (15-37) Alanine Aminotransferase (ALT/SGPT) 19 U/L (12-78) Alkaline Phosphatase 132 U/L (45-117) Total Protein 9.6 gm/dl (6.4-8.2) Albumin 2.8 gm/dl (3.4-5.0) Lipase 913 U/L (73-393) Laboratory results reviewed by me Medications Administered Medications (Trade) Dose Ordered Sig/Cheryl Route Start Time Stop Time Status Last Admin Dose Admin Sodium Chloride 1,000 ml @ 999 mls/hr Q1H1M STAT IV 04/14/17 19:53 04/14/17 20:53 DC 04/14/17 19:53 999 MLS/HR Ondansetron HCl (Zofran Inj) 4 mg NOW STAT IV 04/14/17 21:23 04/14/17 21:24 DC 04/14/17 21:23 4 MG ED Course 1935: The patient was evaluated in room C7. A complete history and physical exam was performed. 1952: Ordered Sodium Chloride 1000 ml @ 999 mls/hr IV. 2122: Ordered Zofran Inj 4 mg IV. 2129: Upon reexamination, the patient was resting comfortably. I discussed the test results and treatment plan with her. The patient will be evaluated for further management. Medical Decision I reviewed the patient's past medical history, medications, and the nursing notes as described above. The patient's presentation and history were concerning for worsening metastatic disease, dehydration, electrolyte abnormalities, pneumonia, bronchitis and UTI. The patient is a 51 y/o woman with pmhx of metastatic colon cancer on home hospice presents to the emergency department with worsening sob, fatigue, dehydration over past week per HPI. On arrival the patient is chronically ill appearing, fatigued, cachectic but in NAD, AFVSS. I had extensive discussions with the patient and family at the bedside and while patient initially expressed that she had just come to the hospital for IVF hydration and transition into intermediate hospice facility, says that basic tests to search for infection was OK. W/u notable for multiple abnormalities including leukocytosis to 18. Hyponatremia 100 and WALKER with Cr 6. BUN/Cr > 20 suggesting prerenal component. Findings d/w patient and family. with many questions regarding cause of abnormalities and I explained ultimately likely related to her metastatic disease. unclear of how much additional w/u and treatment they want however does say that the patient does not want any invasive testing or treatment. Case with d/w Dr. Gutierrez [facility] hospitalist, who will admit the patient for further management and will further clarify goals of care with family. Medication Reconcilliation Current Medication List: was personally reviewed by me Blood Pressure Screening Patient's blood pressure: Normal blood pressure Blood pressure disposition: Did not require urgent referral Consults Time Called: [id number] Consulting Physician: Dr. Gutierrez -[facility] Hospitalist Returned Call: [phone] I discussed the patient with Dr. Gutierrez [facility] the patient for further treatment. Impression Primary Impression: Renal failure Additional Impressions: Hyponatremia Failure to thrive Scribe Attestation The scribe's documentation has been prepared under my direction and personally reviewed by me in its entirety. I confirm that the note above accurately reflects all work, treatment, procedures, and medical decision making performed by me. Departure Information Dispostion Being Evaluated By Hospitalist Patient Instructions My [facility] Problem Qualifiers
--- NOTE | 2017-04-14 22:54 | DIAGNOSTIC IMAGING REPORT ---
HEAD WITHOUT CONTRAST (CT) CT DOSE: 838.37 mGy.cm HISTORY: Mental status change Hyponatremia, Cofusion, Colon Cancer TECHNIQUE: Multiaxial CT images of the head were performed without the use of intravenous contrast. A dose lowering technique was utilized adhering to the principles of ALARA. Comparison: None. Findings: The paranasal sinuses and mastoid air cells are clear. The calvarium and skull base are intact. The ventricles and sulci are within normal limits. There is no mass, hematoma, midline shift, or acute infarct. Impression: No acute intracranial abnormality. The above report was generated using voice recognition software. It may contain grammatical, syntax or spelling errors. Electronically signed by: Navin Quinteros M.D. 04/14/2017 10:53 PM Dictated Date/Time: 04/14/2017 10:51 PM
--- NOTE | 2017-04-14 23:01 | DIAGNOSTIC IMAGING REPORT ---
ABD/PELVIS NO IV OR ORAL CONT CT DOSE: HISTORY: Colon carcinoma Hyponatremia, Confusion, Abdomen Pain TECHNIQUE: Multiaxial CT images of the abdomen and pelvis were performed without contrast. A dose lowering technique was utilized adhering to the principles of ALARA. COMPARISON STUDY: 01/23/2017 FINDINGS: Mild bibasilar dependent atelectasis. Interval placement of a drainage catheter anterior margin and adjacent to the anterior margin of the stomach. Stomach is somewhat decompressed as compared to the prior study. There are findings of persistent small bowel obstructive changes distally. Colon appear to be relatively decompressed. Patient appears to be developing components of carcinomatosis. There are findings of a developing and are considerably progressive. Adenopathy. Exact dimensions are difficult to determine due to the absence of contrast although nodes measure up to 3.5 cm maximum dimension. Matted nodes are seen occupying the paravertebral region kidneys negative for hydronephrosis. Soft tissue mass in the region of the terminal ileum is again noted but is difficult again to define due to the absence of oral contrast. There is a right anterior ostomy present. There are facet opacified loops of bowel versus a progressive 7.5 cm soft tissue mass in the right central pelvis. Bladder is slightly distended. IMPRESSION: 1.. Limited exam due to the absence of oral contrast. 2. Distended small bowel extending to what appears to be a progressive soft tissue mass of the soft tissue pelvis. 3. Developing carcinomatosis. 4. Progressive retroperitoneal and pelvic adenopathy now considered bulky. 5. Overall appearance is one of rapidly progressive metastatic disease within the abdomen and pelvis is compared to the prior study. The above report was generated using voice recognition software. It may contain grammatical, syntax or spelling errors. Electronically signed by: Navin Quinteros M.D. 04/14/2017 11:00 PM Dictated Date/Time: 04/14/2017 10:53 PM
--- NOTE | 2017-04-14 23:54 | History and Physical ---
History & Physical Date & Time of Service: Apr 14, 2017 at 23:54 Chief Complaint: Dehydration Primary Care Physician: Olegario Diehl M.D. History of Present Illness Source: patient, family, spouse, hospital records The patient is a 51-year-old female with a past medical history including metastatic colon cancer, status post colon resection [facility] approximately 1 month ago, and hospice at home, who reported to the emergency Department via EMS due to worsening generalized weakness and states that she does not want to at home. She is accompanied by her family, including her spouse, who are here to determine the cause of her symptoms. Family History Noncontributory Social History Smoking Status: Never Smoker Smokeless Tobacco Use: No Alcohol Use: none Drug Use: none Marital Status: Housing status: lives with family Occupational Status: employed Immunizations History of Influenza Vaccine: Yes Influenza Vaccine Date: Feb 15, 2010 History of Tetanus Vaccine?: No History of Pneumococcal: No History of Hepatitis B Vaccine: No Multi-Drug Resistant Organisms History of MDRO: No Allergies Coded Allergies: POLLEN (Unverified Allergy, Intermediate, SNEEZING, 04/14/17) Home Medications Scheduled Ciprofloxacin Tab (Cipro), 1 TAB PO BID Cyclobenzaprine Hcl (Flexeril), 10 MG PO TID Diltiazem Hcl (Cardizem), 30 MG PO QID Famotidine (Pepcid), 40 MG PO BID Fentanyl (Fentanyl), 12.5 MCG TOP Q3D Olanzapine (Zyprexa Zydis Odt), 5 MG PO BID Senna/Docusate Sod (Senokot S), 1 TAB PO BID Scheduled PRN Acetaminophen (Tylenol), 650 MG PO Q4 PRN for Pain or Fever Lorazepam (Ativan), 0.5 MG PO Q6H PRN for chemo related nausea Ondansetron Hcl (Zofran), 8 MG PO Q8 PRN for Nausea Oxycodone Oral Soln (Roxicodone Oral Soln), 10 ML PO Q1H PRN for Pain Prochlorperazine Maleate (Compazine), 10 MG PO TID PRN for Nausea Zolpidem Tartrate (Ambien), 5 MG PO HS PRN for Sleep [Hemp Oil], 0.5 ML PO BID PRN for RELAXATION Review of Systems The patient denies chest pain, palpitations, shortness of breath, cough, lower extremity swelling, sore throat, fevers, chills, sweats, vomiting, blood in urine or stool, dysuria, urinary frequency or urgency, loss of consciousness, rash, abnormal bruising or bleeding, imbalance, focal weakness, numbness or tingling in arms or legs, back or neck pain, or night sweats. The review of systems is otherwise negative other than for that already noted above, and at least 10 systems have been reviewed. Physical Exam Vital Signs Date Time Temp Pulse Resp B/P (MAP) Pulse Ox O2 Delivery O2 Flow Rate FiO2 04/14/17 22:30 106 20 99 Nasal Cannula 2.0 04/14/17 22:00 107 16 04/14/17 21:30 105 20 124/81 04/14/17 21:00 104 15 100 04/14/17 20:53 104 19 100 Nasal Cannula 2.0 04/14/17 20:23 114 23 04/14/17 19:55 100 Nasal Cannula 2.0 04/14/17 19:53 105 18 04/14/17 19:33 36.8 109 18 122/79 96 Room Air 04/14/17 19:30 111 04/14/17 19:26 122/79 The patient is awake, alert and oriented 3, cachectic appearing, severely fatigued, lying in bed , and reports that she is tired of fighting her illness. HEENT--PERRL, EOMI, mucous membranes and oropharynx dry. Neck--supple, no JVD or bruits, thyroid normal, trachea midline, no adenopathy. Heart--normal S1 and S2, no extra beats, no murmurs, rubs or gallops. Lungs--decreased breath sounds throughout, no respiratory distress, no accessory muscle use. Abdomen--decreased bowel sounds, mildly firm, generalized tenderness. Extremities--no cyanosis, clubbing or edema. There are good distal pulses b/l. Dermatologic--normal skin turgor, normal color, warm and dry, no abnormal lymph nodes, no rash. Neurologic--cranial nerves II through XII grossly intact. Rheumatologic--normal range of motion. Psychiatric--very fatigued Diagnostics Laboratory Results Results Past 24 Hours Test 04/14/17 20:05 Range/Units White Blood Count 18.40 4.8-10.8 K/uL Red Blood Count 3.56 4.2-5.4 M/uL Hemoglobin 9.9 12.0-16.0 g/dL Hematocrit 28.8 37-47 % Mean Corpuscular Volume 80.9 80-100 fL Mean Corpuscular Hemoglobin 27.8 25-34 pg Mean Corpuscular Hemoglobin Concent 34.4 32-36 g/dl Platelet Count 505 130-400 K/uL Mean Platelet Volume 10.2 7.4-10.4 fL Neutrophils (%) (Auto) 90.2 % Lymphocytes (%) (Auto) 3.6 % Monocytes (%) (Auto) 4.9 % Eosinophils (%) (Auto) 0.1 % Basophils (%) (Auto) 0.1 % Neutrophils # (Auto) 16.61 1.4-6.5 K/uL Lymphocytes # (Auto) 0.66 1.2-3.4 K/uL Monocytes # (Auto) 0.90 0.11-0.59 K/uL Eosinophils # (Auto) 0.02 0-0.5 K/uL Basophils # (Auto) 0.01 0-0.2 K/uL RDW Standard Deviation 51.8 36.4-46.3 fL RDW Coefficient of Variation 17.4 11.5-14.5 % Immature Granulocyte % (Auto) 1.1 % Immature Granulocyte # (Auto) 0.20 0.00-0.02 K/uL Sodium Level 107 136-145 mmol/L Potassium Level 5.4 3.5-5.1 mmol/L Chloride Level 67 98-107 mmol/L Carbon Dioxide Level 20 21-32 mmol/L Anion Gap 21.0 3-11 mmol/L Blood Urea Nitrogen 146 7-18 mg/dl Creatinine 6.05 0.60-1.20 mg/dl Est Creatinine Clear Calc Drug Dose 8.8 ml/min Estimated GFR () 8.6 Estimated GFR (Non- 7.4 BUN/Creatinine Ratio 23.2 10-20 Random Glucose 125 70-99 mg/dl Osmolality 297 280-300 mOsm/kg Calcium Level 8.6 8.5-10.1 mg/dl Phosphorus Level 15.8 2.5-4.9 mg/dl Magnesium Level 2.8 1.8-2.4 mg/dl Total Bilirubin 0.5 0.2-1 mg/dl Direct Bilirubin 0.2 0-0.2 mg/dl Aspartate Amino Transf (AST/SGOT) 31 15-37 U/L Alanine Aminotransferase (ALT/SGPT) 19 12-78 U/L Alkaline Phosphatase 132 45-117 U/L Total Protein 9.6 6.4-8.2 gm/dl Albumin 2.8 3.4-5.0 gm/dl Lipase 913 73-393 U/L Diagnostic Radiology Patient Name: MESSI SANCHEZ Unit Number: [id number] Dictated: 04/14/172024 Transcribed: 04/14/172024 MS Printed Date/Time: [~ rep prt dt]/[~ rep prt tm] [~ rep ct labl] - [~ rep ct ivnm] [facility] Radiology Department [place] [id number] Dictated: 04/14/172024 Transcribed: 04/14/172024 MS Printed Date/Time: [~ rep prt dt]/[~ rep prt tm] [~ rep ct labl] - [~ rep ct ivnm] CHEST ONE VIEW PORTABLE CLINICAL HISTORY: ABDOMINAL PAIN/GI pain. Nausea. COMPARISON STUDY: 02/22/2017 FINDINGS: Central catheter in superior vena cava. Lungs are clear. Diaphragms smooth. IMPRESSION: No acute process. Chronic and postoperative change. The above report was generated using voice recognition software. It may contain grammatical, syntax or spelling errors. Electronically signed by: Navin Quinteros M.D. 04/14/2017 8:26 PM Dictated Date/Time: 04/14/2017 8:25 PM The status of this report is Signed. Draft = Not yet reviewed or approved by Radiologist. Signed = Reviewed and approved by Radiologist. <AttendingPhy></AttendingPhy> <FamilyPhy>Olegario Diehl M.D.</FamilyPhy> < PrimaryPhy>Olegario Diehl M.D.</PrimaryPhy> <UnitNumber>[id number]</UnitNumber > <VisitNumber>[id number]</VisitNumber> <PatientName>MESSI SANCHEZ</ PatientName> <DateOfBirth>1965</DateOfBirth> <Location>[facility]</Location> < ServiceDate>04/14/17</ServiceDate> <MNE>ESINDI</MNE> <OrderingPhy>Jon Fitzpatrick M.D.</OrderingPhy> <OrderingPhyMNE>f rep ord dr perez</OrderingPhyMNE> <DictatingPhyMNE>f rep dict dr perez</DictatingPhyMNE> <CCListMNE>f rep ct mne</ CCListMNE> <AdmittingPhyMNE>f pt admit dr perez</AdmittingPhyMNE> <AttendingPhyMNE >f pt attend dr perez</AttendingPhyMNE> <ConsultingPhyMNE>f pt consult dr perez</ConsultingPhyMNE> <FamilyPhyMNE>f pt fam dr perez</FamilyPhyMNE> <OtherPhyMNE>f pt other dr perez</OtherPhyMNE> < PrimaryPhyMNE>f pt prim care dr perez</PrimaryPhyMNE> <ReferringPhyMNE>f pt referring dr perez</ReferringPhyMNE> Patient Name: MESSI SANCHEZ Unit Number: [id number] Dictated: 04/14/172250 Transcribed: 04/14/172250 MS Printed Date/Time: [~ rep prt dt]/[~ rep prt tm] [~ rep ct labl] - [~ rep ct ivnm] [facility] [place] [address] Dictated: 04/14/172250 Transcribed: 04/14/172250 MS Printed Date/Time: [~ rep prt dt]/[~ rep prt tm] [~ rep ct labl] - [~ rep ct ivnm] [~ rep ct add3]] HEAD WITHOUT CONTRAST (CT) CT DOSE: 838.37 mGy.cm HISTORY: Mental status change Hyponatremia, Cofusion, Colon Cancer TECHNIQUE: Multiaxial CT images of the head were performed without the use of intravenous contrast. A dose lowering technique was utilized adhering to the principles of ALARA. Comparison: None. Findings: The paranasal sinuses and mastoid air cells are clear. The calvarium and skull base are intact. The ventricles and sulci are within normal limits. There is no mass, hematoma, midline shift, or acute infarct. Impression: No acute intracranial abnormality. The above report was generated using voice recognition software. It may contain grammatical, syntax or spelling errors. Electronically signed by: Navin Quinteros M.D. 04/14/2017 10:53 PM Dictated Date/Time: 04/14/2017 10:51 PM The status of this report is Signed. Draft = Not yet reviewed or approved by Radiologist. Signed = Reviewed and approved by Radiologist. <AttendingPhy></AttendingPhy> <FamilyPhy>Olegario Diehl M.D.</FamilyPhy> < PrimaryPhy>Olegario Diehl M.D.</PrimaryPhy> <UnitNumber>[id number]</UnitNumber > <VisitNumber>[id number]</VisitNumber> <PatientName>MESSI SANCHEZ</ PatientName> <DateOfBirth>1965</DateOfBirth> <Location>[facility]</Location> < ServiceDate>04/14/17</ServiceDate> <MNE>ESINDI</MNE> <OrderingPhy>Victor Hugo Hernandez MD</OrderingPhy> <OrderingPhyMNE>f rep ord dr perez</OrderingPhyMNE> < DictatingPhyMNE>f rep dict dr perez</DictatingPhyMNE> <CCListMNE>f rep ct mne</ CCListMNE> <AdmittingPhyMNE>f pt admit dr perez</AdmittingPhyMNE> <AttendingPhyMNE >f pt attend dr perez</AttendingPhyMNE> <ConsultingPhyMNE>f pt consult dr perez</ConsultingPhyMNE> <FamilyPhyMNE>f pt fam dr perez</FamilyPhyMNE> <OtherPhyMNE>f pt other dr perez</OtherPhyMNE> < PrimaryPhyMNE>f pt prim care dr perez</PrimaryPhyMNE> <ReferringPhyMNE>f pt referring dr perez</ReferringPhyMNE> Patient Name: MESSI SANCHEZ Unit Number: [id number] Dictated: 04/14/172252 Transcribed: 04/14/172252 MS Printed Date/Time: [~ rep prt dt]/[~ rep prt tm] [~ rep ct labl] - [~ rep ct ivnm] [facility] [place] [address] Dictated: 04/14/172252 Transcribed: 04/14/172252 MS Printed Date/Time: [~ rep prt dt]/[~ rep prt tm] [~ rep ct labl] - [~ rep ct ivnm] [~ rep ct add3]] ABD/PELVIS NO IV OR ORAL CONT CT DOSE: HISTORY: Colon carcinoma Hyponatremia, Confusion, Abdomen Pain TECHNIQUE: Multiaxial CT images of the abdomen and pelvis were performed without contrast. A dose lowering technique was utilized adhering to the principles of ALARA. COMPARISON STUDY: 01/23/2017 FINDINGS: Mild bibasilar dependent atelectasis. Interval placement of a drainage catheter anterior margin and adjacent to the anterior margin of the stomach. Stomach is somewhat decompressed as compared to the prior study. There are findings of persistent small bowel obstructive changes distally. Colon appear to be relatively decompressed. Patient appears to be developing components of carcinomatosis. There are findings of a developing and are considerably progressive. Adenopathy. Exact dimensions are difficult to determine due to the absence of contrast although nodes measure up to 3.5 cm maximum dimension. Matted nodes are seen occupying the paravertebral region kidneys negative for hydronephrosis. Soft tissue mass in the region of the terminal ileum is again noted but is difficult again to define due to the absence of oral contrast. There is a right anterior ostomy present. There are facet opacified loops of bowel versus a progressive 7.5 cm soft tissue mass in the right central pelvis. Bladder is slightly distended. IMPRESSION: 1.. Limited exam due to the absence of oral contrast. 2. Distended small bowel extending to what appears to be a progressive soft tissue mass of the soft tissue pelvis. 3. Developing carcinomatosis. 4. Progressive retroperitoneal and pelvic adenopathy now considered bulky. 5. Overall appearance is one of rapidly progressive metastatic disease within the abdomen and pelvis is compared to the prior study. The above report was generated using voice recognition software. It may contain grammatical, syntax or spelling errors. Electronically signed by: Navin Quinteros M.D. 04/14/2017 11:00 PM Dictated Date/Time: 04/14/2017 10:53 PM The status of this report is Signed. Draft = Not yet reviewed or approved by Radiologist. Signed = Reviewed and approved by Radiologist. <AttendingPhy></AttendingPhy> <FamilyPhy>Olegario Diehl M.D.</FamilyPhy> < PrimaryPhy>Olegario Diehl M.D.</PrimaryPhy> <UnitNumber>[id number]</UnitNumber > <VisitNumber>[id number]</VisitNumber> <PatientName>MESSI SANCHEZ</ PatientName> <DateOfBirth>1965</DateOfBirth> <Location>[facility]</Location> < ServiceDate>04/14/17</ServiceDate> <MNE>ESINDI</MNE> <OrderingPhy>Victor Hugo Hernandez MD</OrderingPhy> <OrderingPhyMNE>f rep ord dr perez</OrderingPhyMNE> < DictatingPhyMNE>f rep dict dr perez</DictatingPhyMNE> <CCListMNE>f rep ct chris</ CCListMNE> <AdmittingPhyMNE>f pt admit dr perez</AdmittingPhyMNE> <AttendingPhyMNE >f pt attend dr perez</AttendingPhyMNE> <ConsultingPhyMNE>f pt consult dr perez</ConsultingPhyMNE> <FamilyPhyMNE>f pt fam dr perez</FamilyPhyMNE> <OtherPhyMNE>f pt other dr perez</OtherPhyMNE> < PrimaryPhyMNE>f pt prim care dr perez</PrimaryPhyMNE> <ReferringPhyMNE>f pt referring dr perez</ReferringPhyMNE> Impression Assessment and Plan Rapidly progressive metastatic adenocarcinoma the colon-- CT of abdomen and pelvis is showing development of carcinomatosis and extensive bulky adenopathy. I had a long discussion with the patient and her . The patient does not want any further treatment. Among the discussion, was that of being admitted to the hospital for comfort measures, and this was the preference of the patient and her . The patient will be admitted to the medical floor for comfort measures only. Continue nasal cannula Morphine sulfate 4 mg IV every hour when necessary Transderm scopolamine patch 1.5 mg changing it 3 days intervals Zofran 4 mg IV every 6 hours when necessary Lorazepam 1 mg IV every hour when necessary Increase fentanyl patch from 12.5 mcg to 25 changing at 72 hour intervals Atropine ophthalmic solution, one drop sublingually every 30 minutes as needed for secretions Level of Care Med/Surg Advanced Directives Existing Advance Directive: Yes Existing Living Will: Yes Existing Power of Air Control Electronics Operator: Yes Resuscitation Status DO NOT RESUSCITATE VTE Prophylaxis VTE Risk Assessment Done? Y/N: Yes Risk Level: High Given or contraindicated: SCD's
[2017-04-15] MEDS ORDERED: ACETAMINOPHEN IV 100 ML IV PRN
[2017-04-15] MEDS ORDERED: ACETAMINOPHEN 325 MG TAB PO PRN
[2017-04-15] MEDS ORDERED: SCOPOLAMINE 1.5 MG TDSY TD SCH
[2017-04-15] MEDS ORDERED: FENTANYL 12 MCG/HR TDSY TD SCH
[2017-04-15] MEDS ORDERED: ATROPINE SULFATE 1% OP SOLN 2 ML BTL SL PRN
[2017-04-15] MEDS ORDERED: LORAZEPAM 2 MG/ML 1 ML VIAL ONE (00:07)
[2017-04-15 00:16] VITALS: O2SAT 100
[2017-04-15] MEDS ORDERED: FENTANYL 25 MCG/HR TDSY TD SCH (01:00)
[2017-04-15] MEDS: CHECK SCOPOLAMINE PATCH PLACEMENT SCH ×4 (01:54→23:49)
[2017-04-15 02:13] VITALS: BP 97/78; PULSE 110; TEMP 36.8; Ht 175.3 cm; Wt 58.4 kg
[2017-04-15] MEDS ORDERED: ONDANSETRON INJ 2 MG/ML 2 ML VIAL IV PRN (02:15)
--- NOTE | 2017-04-15 02:50 | NUR ---
A: pt requested for haas catheter to be discontinued and would like to use bedside commode. Dr. Hernandez notified and placed orders for haas to be d/c'd and bed rest completed. staff assisted pt to beside commode where she had a brief syncopal episode. VS obtained and were stable. pt assisted back to bed. bed alarm on for safety. call foreman within reach. will continue to monitor.
[2017-04-15] MEDS: CHECK FENTANYL PATCH PLACEMENT SCH ×3 (08:53→23:49)
[2017-04-15] MEDS ORDERED: NURSING VERBAL MED ORDER ONE (09:30)
[2017-04-15] MEDS ORDERED: PROCHLORPERAZINE MALEATE 10 MG TAB PO PRN (09:30)
--- NOTE | 2017-04-15 11:49 | NUR ---
Case Management- Met with patient in room. She was identified on screening tool as comfort measures/receiving hospice servicess. Per er case management signed revocation paperwork in er from [facility] so that patient can be treated. Patient reports she lives with her son and . Her mother and mother in law help with adls. Patient reports she haqs been weak and tired a lot. Attempted to speak with her regarding plans and if she would like a referral back to [facility] she kept falling asleep she asked that I come back tomorrow to discuss continued plans. It appears currently she is being symptom management [facility] will need to be called tomorrow to find out why they revoked (ER case management note says wanted further treatment). However does not appear we are doing this. CM following Addendum: 04/15/17 at 1446 by Lupis Lantigua SERV spoke Alexander Acosta [phone] who revoked services last night in ed this was done because her wanted treatment including iv fluids. Explained to Alexander that this was not done asked about the potential for gip per alexander he would need approval for this by his administrators and they are not in until tomorrow. Per alexander prior to her coming in they were working towards placement because she has stated to [facility] that she did not want to at home. Per alexander he gave the patient and choice of either going for placement or coming to the ed the chose treatment which is why services were revoked. Per Alexander merchant asks that we call tomorrow to [facility] if patient meets criteria for gip and family is willing
--- NOTE | 2017-04-15 14:21 | Hospitalist Progress Note ---
Hospitalist Progress Note Date of Service Apr 15, 2017. Subjective Pt evaluation today including: conversation w/ patient, conversation w/ family Pt c/o Whiteside irritating her overnight o it was removed by industrial staff nurse. Ths AM when I saw her, she did wake up and said she has some sensation like she has to urinate when she coughs, also c/o hiccups, but otherwise denied pain. Later in the afternoon, I came back to see her with her and at least 10 family members and friends at the beside. Discussed her condition and prognosis with . He explained to me that he understands her cancer has progressed and is causing obstruction with poor absorption leading to severe dehydration. He is accepting now of her approaching end of life. He states that she does not appear to be in pain and has no requests at this time. All Other Systems: Reviewed and Negative Objective Vital Signs Date Time Temp Pulse Resp B/P (MAP) Pulse Ox O2 Delivery O2 Flow Rate FiO2 04/15/17 08:58 Room Air 04/15/17 02:13 36.8 110 18 97/78 Nasal Cannula 2.0 04/15/17 00:16 105 20 130/80 100 04/14/17 22:30 106 20 99 Nasal Cannula 2.0 04/14/17 22:00 107 16 04/14/17 21:30 105 20 124/81 04/14/17 21:00 104 15 100 04/14/17 20:53 104 19 100 Nasal Cannula 2.0 04/14/17 20:23 114 23 04/14/17 19:55 100 Nasal Cannula 2.0 04/14/17 19:53 105 18 04/14/17 19:33 36.8 109 18 122/79 96 Room Air 04/14/17 19:30 111 04/14/17 19:26 122/79 Physical Exam General Appearance: no apparent distress, + cachetic Eyes: normal inspection, sclerae normal ENT: hearing grossly normal, + pertinent finding (mucus membranes dry) Neck: trachea midline Respiratory/Chest: no respiratory distress, no accessory muscle use Cardiovascular: no murmur, + tachycardia (with reg rhythm) Abdomen: non tender, + abnormal bowel sounds (hypoactive), + distended (with PEG tbe with output to gravity bag, also with ileostomy with small amount output , no blood, midline incisional wound with some superficial openings in 2 areas, no drainage, no erythema) Extremities: non-tender, normal inspection, no pedal edema, no calf tenderness Neurologic/Psychiatric: + pertinent finding (drowsy but does wake up to answer questions) Skin: warm/dry, + pallor Laboratory Results Last 24 Hours Test 04/14/17 20:05 White Blood Count 18.40 K/uL Red Blood Count 3.56 M/uL Hemoglobin 9.9 g/dL Hematocrit 28.8 % Mean Corpuscular Volume 80.9 fL Mean Corpuscular Hemoglobin 27.8 pg Mean Corpuscular Hemoglobin Concent 34.4 g/dl Platelet Count 505 K/uL Mean Platelet Volume 10.2 fL Neutrophils (%) (Auto) 90.2 % Lymphocytes (%) (Auto) 3.6 % Monocytes (%) (Auto) 4.9 % Eosinophils (%) (Auto) 0.1 % Basophils (%) (Auto) 0.1 % Neutrophils # (Auto) 16.61 K/uL Lymphocytes # (Auto) 0.66 K/uL Monocytes # (Auto) 0.90 K/uL Eosinophils # (Auto) 0.02 K/uL Basophils # (Auto) 0.01 K/uL RDW Standard Deviation 51.8 fL RDW Coefficient of Variation 17.4 % Immature Granulocyte % (Auto) 1.1 % Immature Granulocyte # (Auto) 0.20 K/uL Sodium Level 107 mmol/L Potassium Level 5.4 mmol/L Chloride Level 67 mmol/L Carbon Dioxide Level 20 mmol/L Anion Gap 21.0 mmol/L Blood Urea Nitrogen 146 mg/dl Creatinine 6.05 mg/dl Est Creatinine Clear Calc Drug Dose 8.8 ml/min Estimated GFR () 8.6 Estimated GFR (Non- 7.4 BUN/Creatinine Ratio 23.2 Random Glucose 125 mg/dl Osmolality 297 mOsm/kg Calcium Level 8.6 mg/dl Phosphorus Level 15.8 mg/dl Magnesium Level 2.8 mg/dl Total Bilirubin 0.5 mg/dl Direct Bilirubin 0.2 mg/dl Aspartate Amino Transf (AST/SGOT) 31 U/L Alanine Aminotransferase (ALT/SGPT) 19 U/L Alkaline Phosphatase 132 U/L Total Protein 9.6 gm/dl Albumin 2.8 gm/dl Lipase 913 U/L Assessment and Plan The patient is a 51-year-old female with a past medical history including metastatic colon cancer, status post bowel resection for worsening SBO at [facility] approximately 1 month ago, and on hospice at home, who reported to the emergency Department via EMS due to worsening generalized weakness and states that she does not want to at home. reports trying to get po intake in her, but very little output in ileostomy, and increasing output in G-tube. She is accompanied by her family, including her spouse, who are here to determine the cause of her symptoms. CT abd/pel showed rapidly progressive disease with enlargement of the pelvic mass likely causing SBO, as well as now bulky VERA and carcinomatosis. She was also found to have a creatinine of 6, and a sodium level of 107, consistent with profound dehydration. She is admitted for comfort measures due to requirement for IV pain medications and inability to absorb po medications well. Rapidly progressive metastatic adenocarcinoma of the colon/SBO/DAYRON/Hyponatremia- - on comfort measures only now. Appears comfortable. CT of abdomen and pelvis is showing development of carcinomatosis and extensive bulky adenopathy. The patient will be admitted to the medical floor for comfort measures only. Continue oxygen for comfort as needed Morphine sulfate 4 mg IV every hour when necessary for pain Transderm scopolamine patch 1.5 mg changing it 3 days for secretions and nausea Comapzine for nausea and hiccups Zofran 4 mg IV every 6 hours when necessary for nausea Lorazepam 1 mg IV every hour when necessary for anxiety Increased home fentanyl patch from 12.5 mcg to 25 changing at 72 hour intervals Atropine ophthalmic solution, one drop sublingually every 30 minutes as needed for secretions -Can place Whiteside again if necessary. Prognosis very guarded, expect she will pass away in the next 1-2 days- discussed with and family,friends at the bedside DNR/DNI
--- NOTE | 2017-04-15 14:29 | NUR ---
a: pt on comfort care. appears comfortable. family and friends at bedside. emotional support given. Addendum: 04/15/17 at 1434 by Breana Greenwood RN Id note: no d/c plans for patient at this time.
[2017-04-15] MEDS ORDERED: NURSING DECISION MEDICATION ORDER SCH (18:00)
[2017-04-15] MEDS: MoRPHine SULFATE 4 MG/ML 1 ML CARP\\VIAL IV PRN (18:08)
[2017-04-15] MEDS ORDERED: LIDOCAINE HCL 2% JELLY 30 ML TUBE EXT PRN (18:15)
[2017-04-15] MEDS: LORAZEPAM INJ 1 MG in SYRINGE 0.5 ML IV PRN (20:49)
--- NOTE | 2017-04-15 23:27 | NUR ---
ID: Patient admitted for comfort measures for colon cancer. PRN morphine, ativan. Whiteside inserted for comfort. PEG tube draining continuously. No discharge plans for patient at this time.
[2017-04-16] MEDS: LORAZEPAM INJ 1 MG in SYRINGE 0.5 ML IV PRN (06:18)
[2017-04-16] MEDS: MoRPHine SULFATE 4 MG/ML 1 ML CARP\\VIAL IV PRN (07:10)
[2017-04-16] MEDS: CHECK SCOPOLAMINE PATCH PLACEMENT SCH ×2 (07:47→15:37)
[2017-04-16] MEDS: CHECK FENTANYL PATCH PLACEMENT SCH ×2 (07:47→15:37)
[2017-04-16] MEDS: LORAZEPAM 2 MG/ML 1 ML VIAL IV PRN ×2 (09:49→12:29)
--- NOTE | 2017-04-16 11:11 | Progress Note ---
Subjective Date of Service: Apr 16, 2017. Problem List Medical Problems: (1) Bowel obstruction Status: Acute (2) Dehydration Status: Acute (3) Failure to thrive Status: Acute (4) Hyponatremia Status: Acute (5) Hypotension Status: Acute (6) Lower abdominal pain Status: Acute (7) Neutropenia Status: Acute (8) Renal failure Status: Acute (9) Sepsis Status: Acute (10) Small bowel obstruction Status: Acute Objective Vital Signs Date Time Temp Pulse Resp B/P (MAP) Pulse Ox O2 Delivery O2 Flow Rate FiO2 04/16/17 08:06 Room Air 04/16/17 00:20 Room Air 04/15/17 16:00 Room Air Assessment and Plan The patient is a 51-year-old female with a past medical history including metastatic colon cancer, status post bowel resection for worsening SBO at [facility] approximately 1 month ago, and on hospice at home, who reported to the emergency Department via EMS due to worsening generalized weakness and states that she does not want to at home. reports trying to get po intake in her, but very little output in ileostomy, and increasing output in G-tube. She is accompanied by her family, including her spouse, who are here to determine the cause of her symptoms. CT abd/pel showed rapidly progressive disease with enlargement of the pelvic mass likely causing SBO, as well as now bulky VERA and carcinomatosis. She was also found to have a creatinine of 6, and a sodium level of 107, consistent with profound dehydration. She is admitted for comfort measures due to requirement for IV pain medications and inability to absorb po medications well. Rapidly progressive metastatic adenocarcinoma of the colon/SBO/DAYRON/Hyponatremia- - on comfort measures only now. Appears comfortable. CT of abdomen and pelvis is showing development of carcinomatosis and extensive bulky adenopathy. The patient will be admitted to the medical floor for comfort measures only. Continue oxygen for comfort as needed Morphine sulfate 4 mg IV every hour when necessary for pain Transderm scopolamine patch 1.5 mg changing it 3 days for secretions and nausea Comapzine for nausea and hiccups Zofran 4 mg IV every 6 hours when necessary for nausea Lorazepam 1 mg IV every hour when necessary for anxiety Increased home fentanyl patch from 12.5 mcg to 25 changing at 72 hour intervals Atropine ophthalmic solution, one drop sublingually every 30 minutes as needed for secretions -Can place Wh[place] again if necessary. Prognosis very guarded, expect she will pass away in the next 1-2 days- discussed with and family,friends at the bedside DNR/DNI
[2017-04-16] MEDS ORDERED: NURSING DECISION MEDICATION ORDER SCH (15:45)
[2017-04-16] MEDS ORDERED: ARTIFICIAL TEARS OP SOLN OP PRN (16:00)
--- NOTE | 2017-04-16 16:23 | NUR ---
Talked with attending at rounds today. Patient is declining and could benefit from inpatient hospice care. Talked with Desiree at [facility] today. Asked about starting inpatient hospice today. She will talk with the director and call back. Message from Desiree at [facility]. They will send a nurse today to sign the patient up for hospice in the hospital. Talked with the attending about an order for hospice to eval and treat. Script completed. Talked with [facility] hospice nurse. She will admit patient to hospice today. Talked with patient's about the above. He's in agreement. Plan discharge to inpatient hospice. Attending to complete a discharge and readmission to inpatient hospice. Nursing to get a new chart (V number from admissions).
--- NOTE | 2017-04-16 17:15 | NUR ---
A: Patient to be discharged at this time for readmission as inpatient hospice.
--- NOTE | 2017-04-16 17:24 | Discharge Summary ---
Discharge Summary Date of Service Apr 16, 2017. Discharge Summary Admission Date: Apr 14, 2017 at 23:46 Discharge Date: Apr 16, 2017 Discharge Disposition: Acute care facility Principal Diagnosis: Metastatic colon cancer Immunizations: Have You Had Influenza Vaccine: Yes Influenza Vaccine Date: Feb 15, 2010 History of Tetanus Vaccine?: No History of Pneumococcal: No History of Hepatitis B Vaccine: No Medication Reconciliation Continued Medications: Fentanyl (Fentanyl) 12 Mcg Tdsy 12.5 MCG TOP Q3D Lorazepam (Ativan) 0.5 Mg Tab 0.5 MG PO Q6H PRN for chemo related nausea, TAB Discontinued Medications: Acetaminophen (Tylenol) 325 Mg Tab 650 MG PO Q4 PRN for Pain or Fever, TAB Famotidine (Pepcid) 40 Mg Tab 40 MG PO BID, TAB Olanzapine (Zyprexa Zydis Odt) 5 Mg Beverly 5 MG PO BID, BEVERLY Ondansetron Hcl (Zofran) 8 Mg Tab 8 MG PO Q8 PRN for Nausea, TAB Oxycodone Oral Soln (Roxicodone Oral Soln) 5 Mg/5 Ml Soln 10 ML PO Q1H PRN for Pain Prochlorperazine Maleate (Compazine) 10 Mg Tab 10 MG PO TID PRN for Nausea, TAB NAUSEA/VOMITING Senna/Docusate Sod (Senokot S) 1 Tab Tab 1 TAB PO BID, TAB Zolpidem Tartrate (Ambien) 5 Mg Tab 5 MG PO HS PRN for Sleep, TAB [Hemp Oil] () 0.5 ML PO BID PRN for RELAXATION Discharge Exam Review of Systems: Constitutional: + problem reported (unable to obtain ROS due to patient is termianl and is not responding to questions.) Physical Exam: General Appearance: no apparent distress, + cachetic Eyes: normal inspection ENT: normal ENT inspection Neck: supple, no adenopathy Respiratory/Chest: chest non-tender, lungs clear, + accessory muscle use Cardiovascular: no edema, + tachycardia Abdomen / GI: soft, + pertinent finding ( + abnormal bowel sounds ( hypoactive), + distended (with PEG tbe with output to gravity bag, also with ileostomy with small amount output, no blood, midline incisional wound with some superficial openings in 2 areas, no drainage, no erythema)) Extremities: normal inspection Skin: normal color Lymphatic: no adenopathy Hospital Course The patient is a 51-year-old female with a past medical history including metastatic colon cancer, status post bowel resection for worsening SBO at [facility] approximately 1 month ago, and on hospice at home, who reported to the emergency Department via EMS due to worsening generalized weakness and states that she does not want to at home. reports trying to get po intake in her, but very little output in ileostomy, and increasing output in G-tube. She is accompanied by her family, including her spouse, who are here to determine the cause of her symptoms. CT abd/pel showed rapidly progressive disease with enlargement of the pelvic mass likely causing SBO, as well as now bulky VERA and carcinomatosis. She was also found to have a creatinine of 6, and a sodium level of 107, consistent with profound dehydration. She is admitted for comfort measures due to requirement for IV pain medications and inability to absorb po medications well. Rapidly progressive metastatic adenocarcinoma of the colon/SBO/DAYRON/Hyponatremia- - on comfort measures only now. Appears comfortable. CT of abdomen and pelvis is showing development of carcinomatosis and extensive bulky adenopathy. Patient and family on day 2 of hospital stay are agreeable to inpatient hospice as patient does not want to go home. Patient will be discharged from inpatient medicine and readmitted to inpatient hospice. will continue comfort care. Continue oxygen for comfort as needed continue Morphine sulfate 4 mg IV every hour when necessary for pain Zofran 4 mg IV every 6 hours when necessary for nausea Lorazepam 1 mg IV every hour when necessary for anxiety Atropine ophthalmic solution, one drop sublingually every 30 minutes as needed for secretions -Can place Whiteside again if necessary. Prognosis is poor. Unlikely to be live past 48 hours. Total Time Spent: Less than 30 minutes This includes examination of the patient, discharge planning, medication reconciliation, and communication with other providers. Discharge Instructions Please refer to the electronic Patient Visit Report (Discharge Instructions) for additional information.
--- NOTE | 2017-04-16 17:26 | Discharge Instructions ---
Discharge Instructions Date of Service Apr 16, 2017. 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 Instructions / Follow-Up Instructions / Follow-Up will be admitted to hospice inpatient. Current Hospital Diet Patient's current hospital diet: Clear Liquid Diet Discharge Diet Recommended Diet: Clear Liquid Diet Pending Studies Studies pending at discharge: no Laboratory Results Lipid Panel Test 02/21/17 04:15 Range/Units Triglycerides Level 103 0-150 mg/dl Cholesterol Level 122 0-200 mg/dl HDL Cholesterol 51 mg/dl Cholesterol/HDL Ratio 2.4 LDL Cholesterol, Calculated 50 mg/dl Medical Emergencies . Who to Call and When: Medical Emergencies: If at any time you feel your situation is an emergency, please call 911 immediately. . Non-Emergent Contact Non-Emergency issues call your: Hospital Doctor Call Non-Emergent contact if: your pain is worsening . . "Provider Documentation" section prepared by Kike Jennings. . VTE Core Measure Inpt VTE Proph given/why not?: SCD's
[2017-04-18] MEDS ORDERED: FENTANYL PATCH REMOVE & WASTE SCH (01:00)
== END 2017-04-16 17:32 | disposition other institution (70) | DRG 375 ==
LOC: EDBD 19:23 → C.EDC 19:26 → C.4E 23:46 → ENRESERV 04-15 00:06
PROVIDERS: ADMIT Hospitalist; ATTEND Hospitalist
DX: C18.9 Malignant neoplasm of colon, unspecified (principal); E87.1 Hypo-osmolality and hyponatremia; N17.9 Acute kidney failure, unspecified; Z51.5 Encounter for palliative care; R62.7 Adult failure to thrive; Z66 Do not resuscitate; Z93.2 Ileostomy status

== ENCOUNTER → 2017-04-14 | Outpatient (CLI) | payer OTHER ==
[~2017-04-14] MED LIST changes: +ACET-1175 PO; +AZIT500I9 IV; -BCPILLS PO; +CEFE2INJ2 IV; +CIPR1TAB11 PO; +CYCL10TA6 PO; -DICY10CA55 PO; +DILT1TAB62 PO; +DILT30TA PO; +DOCU-94 PO; +DRGTP12 TOP; +DXM/4 PO; +FAMO20TA9 IV; +FAMO40TA6 PO; +HEMP OIL PO; +LORA-741 PO; +OLAN5TAB3 PO; +ONDA8TAB6 PO; +OXYC10SO PO; +OXYC1TAB3 PO; +PROC1TAB5 PO; +SENN-65 PO; +THM100 IV; -VANC5CAP PO; -VTMD1000 PO; +ZOLP5TAB PO
--- NOTE | 2017-04-17 11:46 | CODING QUERY NO DIAGNOSIS ---
TREATMENT RENDERED WITHOUT A DIAGNOSIS To promote full compliance with coding requirements relating to patient care, physician participation is requested in all cases of medical insurance coder uncertainty. Please assist us with providing a diagnosis/symptom for the test(s) below: A diagnosis/symptom was not documented on your Order. A valid diagnosis/symptom is required to bill all insurances. Please remember that we are unable to code a diagnosis of rule out, probable, possible, questionable, or suspected. Tests that require a diagnosis for date of service 04/14/17: * UA CLEAN CATCH DIAGNOSIS: * URINE CULTURE CLEAN CATCH DIAGNOSIS: Provider Signature: Date: Thank you Pati Spicer [employer] Information Management Once completed, please kindly fax back to [phone] For questions please call [phone]
== END | disposition home or self-care (01) ==
LOC: C.LABSPEC 12:31
PROVIDERS: ATTEND Family Medicine
DX: R30.0 Dysuria (principal); R35.0 Frequency of micturition; N30.00 Acute cystitis without hematuria

== ENCOUNTER 2017-04-16 17:33 | Inpatient (IN) | payer OTHER ==
[~2017-04-16] VITALS: Ht 175.3 cm; Wt 58.1 kg
[~2017-04-16 17:33] MED LIST changes: -ATOR-54 PO; -AZIT500I9 IV; -CEFE2INJ2 IV; +CIPR1TAB11 PO; +CYCL10TA6 PO; -DILT1TAB62 PO; +DILT30TA PO; -DOCU-94 PO; +DRGTP12 TOP; -DXM/4 PO; -FAMO20TA9 IV; +HEMP OIL PO; +OLAN5TAB3 PO; -ONDA-170 PO; +ONDA8TAB6 PO; -OXYC-90 PO; +OXYC10SO PO; -PROC10TA PO; +PROC1TAB5 PO; -THIA100T27 IV; +ZOLP5TAB PO
--- NOTE | 2017-04-16 17:39 | History and Physical ---
History & Physical Date & Time of Service: Apr 16, 2017 at 17:39 Chief Complaint: Hospice Care Primary Care Physician: Olegario Diehl M.D. History of Present Illness Source: clinic records 51 yo female is admitted to inpatient hospice. She was discharged from medical service after being switched to inpatient hospice as she has sathya deteriorating from her advanced colon cancer. Patient is lethargic and does not answer questions. Social History Smoking Status: Never Smoker Drug Use: none Marital Status: Housing status: lives with family Occupational Status: employed Immunizations History of Influenza Vaccine: Yes Influenza Vaccine Date: Feb 15, 2010 History of Tetanus Vaccine?: No History of Pneumococcal: No History of Hepatitis B Vaccine: No Multi-Drug Resistant Organisms History of MDRO: No Allergies Coded Allergies: POLLEN (Unverified Allergy, Intermediate, SNEEZING, 04/14/17) Home Medications Scheduled Ciprofloxacin Tab (Cipro), 1 TAB PO BID Cyclobenzaprine Hcl (Flexeril), 10 MG PO TID Diltiazem Hcl (Cardizem), 30 MG PO QID Famotidine (Pepcid), 40 MG PO BID Fentanyl (Fentanyl), 12.5 MCG TOP Q3D Olanzapine (Zyprexa Zydis Odt), 5 MG PO BID Senna/Docusate Sod (Senokot S), 1 TAB PO BID Scheduled PRN Acetaminophen (Tylenol), 650 MG PO Q4 PRN for Pain or Fever Lorazepam (Ativan), 0.5 MG PO Q6H PRN for chemo related nausea Ondansetron Hcl (Zofran), 8 MG PO Q8 PRN for Nausea Oxycodone Oral Soln (Roxicodone Oral Soln), 10 ML PO Q1H PRN for Pain Prochlorperazine Maleate (Compazine), 10 MG PO TID PRN for Nausea Zolpidem Tartrate (Ambien), 5 MG PO HS PRN for Sleep [Hemp Oil], 0.5 ML PO BID PRN for RELAXATION Physical Exam General Appearance: no apparent distress, + cachetic Eyes: normal inspection, sclerae normal ENT: hearing grossly normal, + pertinent finding (mucus membranes dry) Neck: trachea midline Respiratory/Chest: no respiratory distress, no accessory muscle use Cardiovascular: no murmur, + tachycardia (with reg rhythm) Abdomen: non tender, + abnormal bowel sounds (hypoactive), + distended (with PEG tbe with output to gravity bag, also with ileostomy with small amount output , no blood, midline incisional wound with some superficial openings in 2 areas, no drainage, no erythema) Extremities: non-tender, normal inspection, no pedal edema, no calf tenderness Neurologic/Psychiatric: + pertinent finding (drowsy but does wake up to answer questions) Skin: warm/dry, + pallor Impression Assessment and Plan 51 yo female with advanced colon cancer. Patient is hospice. Patient will likely pass in the next 48 hours. Comfort measure order placed. Patient is on morphine for pain/dyspnea, scopolamine, atropine for secretions Family agrees with comfort care. Level of Care Hospice Resuscitation Status DO NOT RESUSCITATE VTE Prophylaxis VTE Risk Assessment Done? Y/N: Yes Risk Level: Moderate Given or contraindicated: Treatment not indicated
[2017-04-16] MEDS ORDERED: ONDANSETRON INJ 2 MG/ML 2 ML VIAL IV PRN (17:45)
[2017-04-16] MEDS ORDERED: LORAZEPAM 2 MG/ML 1 ML VIAL IV PRN ×2 (17:45)
[2017-04-16] MEDS ORDERED: FENTANYL PATCH REMOVE & WASTE SCH (17:59)
[2017-04-16] MEDS ORDERED: SCOPOLAMINE 1.5 MG TDSY TD SCH (18:00)
[2017-04-16] MEDS ORDERED: FENTANYL 25 MCG/HR TDSY TD SCH ×2 (18:00→21:00)
[2017-04-16] MEDS: LORAZEPAM INJ 1 MG in SYRINGE 0.5 ML IV PRN (18:22)
[2017-04-16] MEDS: ATROPINE SULFATE 1% OP SOLN 5 ML BTL OP PRN (18:35)
[2017-04-17] MEDS: LORAZEPAM INJ 1 MG in SYRINGE 0.5 ML IV PRN ×5 (00:36→22:18)
[2017-04-17] MEDS: CHECK SCOPOLAMINE PATCH PLACEMENT SCH ×4 (00:37→23:35)
[2017-04-17] MEDS: CHECK FENTANYL PATCH PLACEMENT SCH ×4 (00:37→23:35)
[2017-04-17] MEDS: MoRPHine SULFATE 4 MG/ML 1 ML CARP\\VIAL IV PRN ×3 (09:26→19:49)
[2017-04-17] MEDS: ATROPINE SULFATE 1% OP SOLN 5 ML BTL OP PRN (11:52)
[2017-04-17] MEDS ORDERED: NURSING VERBAL MED ORDER ONE (13:50)
[2017-04-17 18:15] VITALS: Ht 175.3 cm; Wt 58.1 kg
[2017-04-17] MEDS ORDERED: FENTANYL PATCH REMOVE & WASTE SCH (20:59)
[2017-04-17] MEDS ORDERED: SCOPOLAMINE 1.5 MG TDSY TD SCH (21:00)
[2017-04-17] MEDS ORDERED: FENTANYL 25 MCG/HR TDSY TD SCH (21:00)
--- NOTE | 2017-04-17 22:00 | Progress Note ---
Subjective Date of Service: Apr 17, 2017. Subjective Pt evaluation today including: conversation w/ family, physical exam, chart review Patient is unresponsive, lying in bed with family around her She does not provide history. Her states that she has been more comfortable today after increasing the ativan Problem List Medical Problems: (1) Bowel obstruction Status: Acute (2) Dehydration Status: Acute (3) Failure to thrive Status: Acute (4) Hyponatremia Status: Acute (5) Hypotension Status: Acute (6) Lower abdominal pain Status: Acute (7) Neutropenia Status: Acute (8) Renal failure Status: Acute (9) Sepsis Status: Acute (10) Small bowel obstruction Status: Acute Review of Systems All Other Systems: Reviewed and Negative Medications Current Inpatient Medications Medications (Trade) Dose Ordered Sig/Cheryl Route Start Time Stop Time Status Last Admin Dose Admin Miscellaneous Information (Check Scopolamine Patch Placement) 1 ea QS N/A 04/17/17 00:00 05/17/17 00:00 04/17/17 16:00 1 EA Atropine Sulfate (Atropine Sulfate 1% Oph Soln) 4 drops Q1H PRN OP 04/16/17 17:45 05/16/17 17:44 04/17/17 11:52 4 DROPS Miscellaneous Information (Check Fentanyl Patch Placement) 1 ea QS N/A 04/17/17 00:00 05/17/17 00:00 04/17/17 16:00 1 EA Ondansetron HCl (Zofran Inj) 4 mg Q6H PRN IV 04/16/17 17:45 05/16/17 17:44 Morphine Sulfate (MoRPHine SULFATE INJ) 4 mg Q1H PRN IV 04/16/17 17:45 04/30/17 17:44 04/17/17 19:49 4 MG Fentanyl (Duragesic Patch) 25 mcg Q3D@2100 TD 04/17/17 21:00 05/01/17 20:59 Miscellaneous (Fentanyl Patch Remove & Waste) 1 ea Q3D@9 N/A 04/17/17 20:59 05/17/17 20:58 Scopolamine (Transderm-Scop Patch) 1.5 mg Q3D@2100 TD 04/17/17 21:00 05/17/17 20:59 Miscellaneous (Remove Transderm-Scop Patch) 1 ea Q3D@9 N/A 04/17/17 20:59 05/17/17 20:58 Lorazepam 1 mg/ Syringe 1 ml @ 1 mls/min Q2H PRN IV 04/17/17 14:30 05/17/17 14:29 04/17/17 18:20 1 MLS/MIN Lorazepam (Ativan Inj) 1 mg Q2H PRN IV 04/17/17 14:30 05/17/17 14:29 Objective Vital Signs Date Time Temp Pulse Resp B/P (MAP) Pulse Ox O2 Delivery O2 Flow Rate FiO2 04/17/17 18:15 Room Air 04/17/17 15:47 Room Air 04/17/17 07:45 Room Air 04/17/17 00:00 Room Air Physical Exam General Appearance: + cachetic Eyes: normal inspection ENT: normal ENT inspection Neck: supple Respiratory/Chest: no respiratory distress, + accessory muscle use Cardiovascular: no edema Neurologic/Psychiatric: + pertinent finding (lethargic) Skin: normal color Lymphatic: no adenopathy Assessment and Plan 51 yo female with advanced colon cancer. Patient continues in hospice. Ativan will be given every 2 hours. Patient will likely pass in the next 48 hours. Patient is on morphine for pain/dyspnea, scopolamine, atropine for secretions Family agrees with comfort care.
[2017-04-18] MEDS: LORAZEPAM INJ 1 MG in SYRINGE 0.5 ML IV PRN (04:32)
[2017-04-18] MEDS: CHECK FENTANYL PATCH PLACEMENT SCH ×3 (08:07→23:41)
[2017-04-18] MEDS: CHECK SCOPOLAMINE PATCH PLACEMENT SCH ×3 (08:08→23:41)
[2017-04-18] MEDS: LORAZEPAM 2 MG/ML 1 ML VIAL IV PRN ×5 (08:19→21:35)
[2017-04-18] MEDS: MoRPHine SULFATE 4 MG/ML 1 ML CARP\\VIAL IV PRN ×5 (08:19→17:55)
[2017-04-18] MEDS ORDERED: NURSING VERBAL MED ORDER ONE (17:45)
[2017-04-18] MEDS: MORPHINE SULF/NSS 250MG/250ML IV PRN ×2 (18:28→19:50)
[2017-04-18] MEDS ORDERED: LORAZEPAM INJ 1 MG in SYRINGE 0.5 ML IV PRN (19:30)
--- NOTE | 2017-04-18 21:45 | Progress Note ---
Subjective Date of Service: Apr 18, 2017. Subjective Pt evaluation today including: conversation w/ family, physical exam Patient is unresponsive. Does not provide history Problem List Medical Problems: (1) Bowel obstruction Status: Acute (2) Dehydration Status: Acute (3) Failure to thrive Status: Acute (4) Hyponatremia Status: Acute (5) Hypotension Status: Acute (6) Lower abdominal pain Status: Acute (7) Neutropenia Status: Acute (8) Renal failure Status: Acute (9) Sepsis Status: Acute (10) Small bowel obstruction Status: Acute Review of Systems All Other Systems: Reviewed and Negative Medications Current Inpatient Medications Medications (Trade) Dose Ordered Sig/Cheryl Route Start Time Stop Time Status Last Admin Dose Admin Miscellaneous Information (Check Scopolamine Patch Placement) 1 ea QS N/A 04/17/17 00:00 05/17/17 00:00 04/18/17 16:00 1 EA Atropine Sulfate (Atropine Sulfate 1% Oph Soln) 4 drops Q1H PRN OP 04/16/17 17:45 05/16/17 17:44 04/17/17 11:52 4 DROPS Miscellaneous Information (Check Fentanyl Patch Placement) 1 ea QS N/A 04/17/17 00:00 05/17/17 00:00 04/18/17 16:00 1 EA Ondansetron HCl (Zofran Inj) 4 mg Q6H PRN IV 04/16/17 17:45 05/16/17 17:44 Fentanyl (Duragesic Patch) 25 mcg Q3D@2100 TD 04/17/17 21:00 05/01/17 20:59 04/17/17 22:20 25 MCG Miscellaneous (Fentanyl Patch Remove & Waste) 1 ea Q3D@2059 N/A 04/17/17 20:59 05/17/17 20:58 04/17/17 20:59 1 EA Scopolamine (Transderm-Scop Patch) 1.5 mg Q3D@2100 TD 04/17/17 21:00 05/17/17 20:59 04/17/17 22:34 1.5 MG Miscellaneous (Remove Transderm-Scop Patch) 1 ea Q3D@2059 N/A 04/17/17 20:59 05/17/17 20:58 04/17/17 22:17 1 EA Lorazepam (Ativan Inj) 1 mg Q2H PRN IV 04/17/17 14:30 05/17/17 14:29 04/18/17 21:35 1 MG Morphine Sulfate/ Dextrose 250 ml @ 0 mls/hr Q0M PRN IV 04/18/17 18:15 05/02/17 18:14 04/18/17 19:50 4 MLS/HR Lorazepam 1 mg/ Syringe 1 ml @ 1 mls/min Q1H PRN IV 04/18/17 19:30 05/17/17 14:29 Objective Vital Signs Date Time Temp Pulse Resp B/P (MAP) Pulse Ox O2 Delivery O2 Flow Rate FiO2 04/18/17 16:00 Nasal Cannula 2.0 04/18/17 09:10 Room Air 04/18/17 00:00 Room Air Physical Exam Comments: General Appearance: + cachetic Eyes: normal inspection ENT: normal ENT inspection Neck: supple Respiratory/Chest: no respiratory distress, + accessory muscle use Cardiovascular: no edema Neurologic/Psychiatric: + pertinent finding (lethargic) Skin: normal color Lymphatic: no adenopathy Assessment and Plan 51 yo female with advanced colon cancer. Patient continues in hospice. Ativan increased to 1 hour PRN as patient does become restless as per . Changed morphine to drip. Unsure as to when patient will . Patient is on morphine for pain/dyspnea, scopolamine, atropine for secretions Family agrees with comfort care. Addendum As noted above, patient has advance colon cancer. WBC were elevated at admission, but this could be reactive. Patient was also on ativan and morphine. Usually when patient's are septic, they usually pass sooner especially when medications such as these are started. I doubt patient has sepsis as she would likely be in shock given that no antibiotics were given during her stay. Cannot completely rule out bacteremia given her advanced colon cancer. But this appears to be very unlikely.
[2017-04-19] MEDS: LORAZEPAM 2 MG/ML 1 ML VIAL IV PRN (00:17)
--- NOTE | 2017-04-19 04:45 | Death Pronouncement Note ---
Pronouncement Note Date & Time of Apr 19, 2017. 0418 Pronouncement At time of pronouncement the patients pupils were fixed and dilated, there was no spontaneous respiratory effort, no palpable pulse, no audible heart tones, and no response to pain or voice.
--- NOTE | 2017-04-19 05:11 | Death Summary ---
Summary of Admission Date Apr 16, 2017 at 17:34 Date & Time of Apr 19, 2017. 0418 Cause of Cardiac Arrest Secondary Diagnoses Colon Cancer, Hyponatremia Hospital Course Patient is a 51 year old female that was admitted for inpatient hospice on for advanced stage colon cancer. The patient was initially admitted medically for hyponatremia and renal failure and due to the advanced stage of her disease the family decided the patient wanted comfort care measures and was transferred to hospice care. The patients pain and shortness of breath through the admission were controlled with Morphine, Scopolamine, and Ativan. Resident Tracking Resident Involvement: Resident Care Provided Care Provided: Adult [facility] Medicine
== END 2017-04-19 08:49 | disposition expired | DRG 375 ==
LOC: C.4E 17:34
PROVIDERS: ADMIT Internal Medicine Sports Medicine; ATTEND Internal Medicine Sports Medicine
DX: C18.9 Malignant neoplasm of colon, unspecified (principal); E87.1 Hypo-osmolality and hyponatremia; R64 Cachexia; Z68.1 Body mass index [BMI] 19.9 or less, adult; G89.3 Neoplasm related pain (acute) (chronic); R06.00 Dyspnea, unspecified; D72.829 Elevated white blood cell count, unspecified; Z66 Do not resuscitate; Z51.5 Encounter for palliative care; Z79.2 Long term (current) use of antibiotics; Z79.899 Other long term (current) drug therapy